=== PATIENT | female | born 1980 | race Caucasian/White ===

== ENCOUNTER → 2018-01-11 | Outpatient (REF) | payer OTHER | LOC: M SFHCLERA 08:42 | DX: F11.90 Opioid use, unspecified, uncomplicated (principal) | CPT/HCPCS: 80307 ==

== ENCOUNTER → 2018-07-07 | Outpatient (CLI) | payer OTHER | LOC: M PAIN 13:15 | DX: M79.1 Myalgia (principal); M47.816 Spondylosis without myelopathy or radiculopathy, lumbar region; F41.9 Anxiety disorder, unspecified; J30.2 Other seasonal allergic rhinitis; K21.9 Gastro-esophageal reflux disease without esophagitis; E55.9 Vitamin D deficiency, unspecified; E66.01 Morbid (severe) obesity due to excess calories; Z79.891 Long term (current) use of opiate analgesic; Z79.899 Other long term (current) drug therapy; Z68.41 Body mass index [BMI] 40.0-44.9, adult | CPT/HCPCS: G0463 ==

== ENCOUNTER → 2018-08-02 | Outpatient (CLI) | payer OTHER | LOC: M PAIN 11:30 | DX: M54.5 Low back pain (principal); M79.1 Myalgia; G89.29 Other chronic pain; M47.816 Spondylosis without myelopathy or radiculopathy, lumbar region; F41.9 Anxiety disorder, unspecified; K21.9 Gastro-esophageal reflux disease without esophagitis; E55.9 Vitamin D deficiency, unspecified; J30.2 Other seasonal allergic rhinitis; E66.01 Morbid (severe) obesity due to excess calories; Z68.41 Body mass index [BMI] 40.0-44.9, adult; Z79.891 Long term (current) use of opiate analgesic; Z79.899 Other long term (current) drug therapy | CPT/HCPCS: G0463 ==

== ENCOUNTER → 2018-09-01 | Outpatient (REF) | payer OTHER ==
[2018-09-01 19:21] LABS: HEMATOCRIT 40.4 % (36.0-47.0); HEMOGLOBIN 12.8 g/dl (12.0-15.5); MEAN CORPUSCULAR HEMOGLOBIN 30.1 pg (27.0-33.0); MEAN CORPUSCULAR HGB CONC 31.7 g/dl (32.0-36.5); MEAN CORPUSCULAR VOLUME 95.1 fl (80.0-96.0); PLATELET COUNT, AUTOMATED 211 10^3/uL (150-450); RED BLOOD COUNT 4.25 10^6/uL (4.00-5.40); RED CELL DISTRIBUTION WIDTH 13.2 % (11.5-14.5); WHITE BLOOD COUNT 8.7 10^3/uL (4.0-10.0)
[2018-09-01 19:42] LABS: ALBUMIN 3.9 GM/DL (3.2-5.2); ALKALINE PHOSPHATASE 85 U/L (45-117); ALT/SGPT 21 U/L (12-78); ANION GAP 4 MEQ/L (8-16); AST/SGOT 11 U/L (7-37); BILIRUBIN,TOTAL 0.4 MG/DL (0.2-1.0); BLOOD UREA NITROGEN 21 MG/DL (7-18); CALCIUM LEVEL 8.6 MG/DL (8.5-10.1); CARBON DIOXIDE LEVEL 30 MEQ/L (21-32); CHLORIDE LEVEL 108 MEQ/L (98-107); CREATININE FOR GFR 1.05 MG/DL (0.55-1.30); FREE T4 0.82 NG/DL (0.76-1.46); GLOMERULAR FILTRATION RATE > 60.0 (>60); GLUCOSE, FASTING 86 MG/DL (70-100); MAGNESIUM LEVEL 2.1 MG/DL (1.8-2.4); POTASSIUM SERUM 3.8 MEQ/L (3.5-5.1); SODIUM LEVEL 142 MEQ/L (136-145); TOTAL PROTEIN 6.9 GM/DL (6.4-8.2)
== END ==
LOC: M SFHCADAM 14:50
DX: R25.2 Cramp and spasm (principal); K21.9 Gastro-esophageal reflux disease without esophagitis; M54.5 Low back pain

== ENCOUNTER → 2018-09-13 | Outpatient (CLI) | payer OTHER | LOC: M PAIN 10:30 | DX: M54.5 Low back pain (principal); M79.18 Myalgia, other site; G89.29 Other chronic pain; M47.816 Spondylosis without myelopathy or radiculopathy, lumbar region; F41.9 Anxiety disorder, unspecified; K21.9 Gastro-esophageal reflux disease without esophagitis; E55.9 Vitamin D deficiency, unspecified; E66.01 Morbid (severe) obesity due to excess calories; Z68.41 Body mass index [BMI] 40.0-44.9, adult; Z79.891 Long term (current) use of opiate analgesic; Z79.899 Other long term (current) drug therapy; J30.2 Other seasonal allergic rhinitis | CPT/HCPCS: G0463 ==

== ENCOUNTER → 2019-02-12 | Outpatient (CLI) | payer OTHER ==
[~2019-02-12] MED LIST: tamiflu
--- NOTE | 2019-02-14 01:56 | ECWPNPC ---
PATIENT NAME: EMILIE GILL : 1980 GENDER: FEMALE VISIT DATE: 02/12/2019 DISCHARGE DATE: 02/12/19 0944 VISIT LOCKED DATE TIME: PHYSICIAN: NATALIA BAKER RESOURCE: NATALIA BAKER REASON FOR APPOINTMENT 1. BACK PAIN HISTORY OF PRESENT ILLNESS HISTORY OF PRESENT ILLNESS: PAIN THE PATIENT DESCRIBES THE PAINDURING THE LAST MONTH SEVERITY - PAIN SCORE OF5/10 38 YEAR OLD FEMALE HERE FOR F/U ON CHRONIC BACK PAIN. TAKES TRAMADOL 50MG PRN. PATIENTN SAYS THE TRAMADOL IS PROVIDING ADEQUATE RELIEF.SHE DENIES RADICULOPATHY. SHE IS NOT TAKING ANY ANTI ANXIETY MEDICATION. LAST URINE TOX 6 MONTHS AGO. FALL RISK SCREENING: SCREENING : NO FALLS IN THE PAST YEAR. CURRENT MEDICATIONS TAKING VITAMIN D 1000 UNIT TABLET 1 TABLET ORALLY ONCE A DAY TAKING MULTIVITAMINS CAPSULE 1 ORALLY DAILY TAKING DICYCLOMINE HCL 20 MG TABLET 1 TABLET ORALLY THREE TIMES DAILY PRN TAKING FLONASE ALLERGY RELIEF 50 MCG/ACT SUSPENSION 1 SPRAY IN EACH NOSTRIL NASALLY BID TAKING LORATADINE 10 MG TABLET 1 TABLET ORALLY ONCE A DAY PRN ALLERGIES TAKING TIZANIDINE HCL 4 MG TABLET 1 TABLET NEEDED ORALLY BEFORE BEDTIME TAKING PANTOPRAZOLE SODIUM 40 MG TABLET DELAYED RELEASE 1 TABLET ORALLY ONCE A DAY TAKING TRAMADOL HCL 50 MG TABLET 1 TABLET ORALLY EVERY 6 HRS PRN FOR PAIN (MDD:4) MEDICATION LIST REVIEWED AND RECONCILED WITH THE PATIENT PAST MEDICAL HISTORY ANXIETY - HAS TRIED MULTIPLE MEDS - HAS LEARNED TO MANAGE THIS WITH CBT SEASONAL ALLERGIES CHRONIC LOW BACK PAIN/MRI SHOWED LUMBAR DISC BULGE/HERNIATION - FOLLOWS WITH PAIN CLINIC ON TRAMADOL ESOPHAGEAL REFLUX H/O VITAMIN D DEFICIENCY OBESITY IBS DIARRHEA TYPE CHRONIC CON'T USE OF OPIOIDS ALLERGIES SEASONAL: ITCHY EYES, NASAL DRAINAGE - ALLERGY SURGICAL HISTORY DRAINED CYST ON RIGHT OVARY AND D&C (DR. HARRINGTON) 2010 BTL (DR. HARRINGTON) 2011 REMOVAL OF RIGHT OVARY AND TUBE 2014 EGD/COLONOSCOPY - DR. HARPER 2015 FAMILY HISTORY FATHER: , COPD; EMPHYSEMA, DIAGNOSED WITH OTHER MOTHER: ALIVE, NO KNOWN MEDICAL PROBLEMS SIBLINGS: ALIVE, 2 BROTHERS; 2 SISTERS (ALL HEALTHY) SON(S): ALIVE MATERNAL GRAND FATHER: , LUNG CANCER MATERNAL AUNT: BREAST CANCER 3 SON(S) , 1 DAUGHTER(S) - HEALTHY. NO H\/O UTERINE, OVARIAN, COLON CANCER. SOCIAL HISTORY GENERAL: TOBACCO USE ARE YOU A:NONSMOKER LATEX QUESTIONNAIRE LATEX ALLERGY : HAVE YOU EVER DEVELOPED ANY TYPE OF REACTION AFTER HANDLING LATEX PRODUCTS SUCH RUBBER GLOVES, CONDOMS, DIAPHRAGMS, BALLOONS, SOCKS, OR UNDERWEAR?NO LATEX ALLERGY : HAVE YOU EVER DEVELOPED ANY TYPE OF REACTION DURING OR AFTER DENTAL APPOINTMENT, VAGINAL/RECTAL EXAMINATION, SURGICAL PROCEDURE, OR ANY OTHER EXPOSURE?NO LATEX RISK : HAVE YOU EVER HAD ANY DIFFICULTY BREATHING OR HIVES AFTER EATING OR HANDLING ANY FRUITS, OR VEGETABLES; SUCH KIWI, BANANAS, STONE FRUITS, OR CHESTNUTSNO LATEX RISK : DO YOU HAVE A PREVIOUS PERSONAL HISTORY OF MORE THAN NINE SURGERIES, SPINA BIFIDA, OR REPEATED CATHERTIZATIONS? NO LATEX RISK : ARE YOU FREQUENTLY EXPOSED TO LATEX PRODUCTS IN YOUR OCCUPATION?NO DATE ASKED : 02/12/2019 LUNG CANCER SCREENING SMOKING STATUS:FORMER SMOKER IS THE PATIENT BETWEEN THE AGE OF 55 AND 77?NO BMI CARE GOAL FOLLOW-UP ABOVE NORMAL BMI FOLLOW-UPDIETARY MANAGEMENT EDUCATION, GUIDANCE, AND COUNSELING ALCOHOL SCREENING DID YOU HAVE A DRINK CONTAINING ALCOHOL IN THE PAST YEAR?NO POINTS0 INTERPRETATIONNEGATIVE RECREATIONAL DRUG USE DRUG USE?NO CAFFEINE CAFFEINE USE?YES A CUP OF COFFEE A DAY SEXUAL HX HAD SEX IN THE LAST 12 MONTHS (VAGINAL, ORAL, OR ANAL)?YES WITHMEN ONLY USE PROTECTION?NO LMP:08/06/18 HAVE YOU EVER HAD AN STD?NO EVANGELICAL EVANGELICAL RELIGION LANGUAGE LANGUAGES SPOKEN:ARABIC EDUCATION LEVEL OF EDUCATION:HIGH SCHOOL LEARNING BARRIERS / SPECIAL NEEDS CHANGE FROM LAST VISIT?NO BARRIERS TO LEARNING?NO HEARING IMPAIRED?NO VISION IMPAIRED?NO COGNITIVELY IMPAIRED?NO READINESS TO LEARN?YES LEARNING PREFERENCES?NO LEARNING CAPABILITIES PRESENT?YES EMOTIONAL BARRIERS?NO SPECIAL DEVICES?NO FIELD SUPERVISOR SEED PRODUCTION NEEDED?NO DOMESTIC VIOLENCE STATUS: DO YOU FEEL SAFE IN YOUR ENVIRONMENT?YES 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 DIET: REGULAR. EXERCISE: WALKS. MARITAL STATUS: . IMMUNIZATION PROGRAM DO YOU FEEL SAFE IN YOUR ENVIRONMENT? 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 PAIN CLINIC PFS, CLERGY, PUBLIC HEALTH REFERRALS PFS REFERRAL NEEDED?NO CLERGY REFERRAL NEEDED?NO PUBLIC HEALTH REFERRAL NEEDED?NO WAS THE PROVIDER NOTIFIED OF ANY PERTINENT INFO? N/A HAS THE PATIENT BEEN EDUCATED REGARDING HIS/HER PLAN OF CARE?YES HAS THE PATIENT BEEN EDUCATED REGARDING PAIN, THE RISK FOR PAIN, THE IMPORTANCE OF EFFECTIVE PAIN MANAGEMENT, AND THE PAIN ASSESSMENT PROCESS?YES ADVANCE DIRECTIVE ADVANCE DIRECTIVE DISCUSSED WITH PATIENT:YES 02/12/19 PT HAS NO ADVANCED DIRECTIVES, DECLINES INFORMATION ON HCP AT THIS TIME. AD EVIEWED 08/02/18 1200REVIEWED WITH PATIENT 09/13/18 1116 JS02/12/19 REVIEWED WITH PT. AD. HOSPITALIZATION/MAJOR DIAGNOSTIC PROCEDURE CHILD X 4 REVIEW OF SYSTEMS REVIEWED BY: PROVIDER: ALAINA Kelly CONSTITUTIONAL: ANY CHANGE IN YOUR MEDICAL CONDITION? NO . CHILLS NO . FEVER NO . INFECTION: DO YOU HAVE NEW INFECTIONS? NO . DO YOU HAVE HISTORY OF MRSA? NO . MUSCULOSKELETAL: ANY NEW PATTERNS OF PAIN OR NUMBNESS? NO . GASTROENTEROLOGY: ANY NEW CHANGE IN BOWEL CONTROL? NO . GENITOURINARY: ANY NEW CHANGE IN BLADDER CONTROL? NO . IS THERE A CHANCE YOU COULD BE ? NO . HEMATOLOGY/LYMPH: DO YOU TAKE ANY BLOOD THINNERS? (FOR EXAMPLE- COUMADIN, PLAVIX, AGGRENOX, PLATEL, PRADAXA, OR XARELTO) NO . WHEN WAS YOUR LAST DOSE? DATE: TIME: . NEUROLOGY: HAVE YOU FALLEN IN THE PAST 12 MONTHS? NO . ANY NEW EXTREMITY NUMBNESS OR WEAKNESS? NO . CARDIOLOGY: DO YOU HAVE A PACEMAKER OR DEFIBRILLATOR? NO . RESPIRATORY: HAVE YOU BEEN SICK IN THE PAST WEEK? YES, STOMACH BUG LAST WEEK, FEELS BETTER NOW . FEVER NO . FLU LIKE SYMPTOMS? NO . COUGH NO . INTEGUMENTARY: DO YOU HAVE ANY RASHES OR OPEN SORES? NO . ALLERGIC/IMMUNO: ARE YOU ALLERGIC TO IV DYE? NO . ANY NEW ALLERGIES? NO . PSYCHIATRIC: DO YOU HAVE THOUGHTS OF HURTING YOURSELF OR SOMEONE ELSE? NO . ARE YOU ABUSED, NEGLECTED, OR IN AN UNSAFE ENVIRONMENT? NO . ENDOCRINOLOGY: ARE YOU DIABETIC? NO . OTHER: DO YOU NEED ANY PRESCRIPTIONS? YES . IF YES, PLEASE LIST: TRAMADOL . ANY NEW PROBLEMS WITH YOUR MEDICATIONS? NO . WHEN DID YOU LAST EAT? ____ . WHEN DID YOU LAST DRINK? ____ . WHAT DID YOU LAST DRINK? ____ . NAME OF PERSON DRIVING YOU HOME? ____ . DO YOU HAVE ANY OTHER QUESTIONS OR CONCERNS NO . VITAL SIGNS WT 280 LBS, HT 66 IN, BMI 45.19 INDEX, BP 135/71 MM HG, HR 78 /MIN, RR 18 /MIN, TEMP 97.2 F, OXYGEN SAT % 99%, SAFE IN ENV? (Y/N) Y, NA INITIALS AW 0911, REVIEWED BY: CALEB. EXAMINATION GENERAL EXAMINATION: GENERAL APPEARANCE:NO ACUTE DISTRESS, WELL NOURISHED AND HYDRATED. LUNGS:CLEAR TO AUSCULTATION BILATERALLY, NO WHEEZES, RHONCHI, RALES. HEART:NO MURMURS, REGULAR RATE AND RHYTHM. BACK: NO BONY TENDERNESS, NORMAL RANGE OF MOTION OF SPINE. MILD TENDERNESS R PARASPINAL MUSCLES FROM. CAN WALK ON HEEL AND TOES SLR NEG BILATERAL REFLEXES 2+ LE. ASSESSMENTS LUMBAR SPONDYLOSIS - M47.816 (PRIMARY) LUMBAR DISC DISEASE - M51.9 MYALGIA - M79.1 TREATMENT LUMBAR SPONDYLOSIS CONTINUE TRAMADOL HCL TABLET, 50 MG, 1 TABLET, ORALLY, EVERY 6 HRS PRN FOR PAIN (MDD:4), 30 DAYS, 30, REFILLS 0 CLINICAL NOTES: ISTOP REGISTRY REVIEWED AND DEMONSTRATES COMPLLIANCE. (REF # [id number] ) BRINGS IN MEDICATIONS WHICH IS APPROPRIATE FOR WHAT WAS DISPENSED. RECENT URINE TOXICOLOGY REVIEWED. NO UNAUTHORIZED MEDICATIONS. NO ILLICIT SUBSTANCES AND PRESCRIBED MEDICATIONS WERE PRESENT. , YOU HAVE LOW BACK PAIN. TAKE MEDICATIONS DIRECTED. FOR ACUTE PAIN, ALTERNATE ICE AND HEAT FOR 15 MIN 3-4 TIMES DAILY, LIE DOWN WITH YOUR FEET ELEVATED FOR 10-15 MIN TO DECREASE STRAIN OF THE BACK MUSCLES AT ONSET OF SYMPTOMS AND THEN TRY TO RESUME REGULAR DAY TO DAY ACTIVITIES SOON POSSIBLE. IF YOU DEVELOP WEAKNESS IN YOUR LEGS, PAIN THAT MAKES IT DIFFICULT TO WALK, OR START TO HAVE PROBLEMS URINATING OR HAVING A BOWEL MOBEMENT, PLEASE COME TO THE CLINIC OR EMERGENCY ROOM IMMEDIATELY, RISKS OF OPIOID MEDICATION WERE REVIEWED WITH THE PATIENT. THIS INCLUDES BUT IS NOT LIMITED TO THE RISK OF DEPENDENCE, DEVELOPMENT ADDICTION, MOOD DISTURBANCE, OSTEOPOROSIS, CONSTIPATION, HORMONAL CHANGES, RESPIRATION DEPRESSION AND . GOALS OF OPIOID THERAPY WERE DISCUSSED WITH THE PATIENT, WITH A TARGET GOAL BEING AN IMPROVEMENT IN FUNCTION, AND NOT NECESSARILY A REDUCTION IN PAIN. PATIENT INFORMED THAT DOSES WILL NOT BE ESCALATED UNLESS THERE IS EVIDENCE OF CLINICAL EFFICACY AT A LOWER DOSE AND THAT EVERY EFFORT WILL BE MADE TO DESCALATE THERAPY SOON POSSIBLE.PATIENT WAS ADVISED TO TAKE THE MEDICATIONS EXACTLY PRESCRIBED, AND TO NOT TAKE OTHER MEDICATIONS UNLESS THEY WERE PROCESSED SPECIFICALLY PRESCRIBED. THE PATIENT IS ADVISED NOT TO DRIVE OR TO CONSUME ALCOHOL WHILE ON THIS MEDICATION. THE PATIENT VOCALIZES AND DEMONSTRATES UNDERSTANDING OF THESE INSTRUCTIONS AND AGREES TO FOLLOW ALL RECOMMENDATIONS. THERE WAS AN OPPORTUNITY FOR QUESTIONS, AND ALL QUESTIONS WERE ANSWERED. URINE TOX TODAY. PROCEDURE CODES FA211 ESTABILISHED PATIENT [facility] CHARGE DISPOSITION & COMMUNICATION FOLLOW UP 3 MONTHS NATALIA ELECTRONICALLY SIGNED BY MEGAN GUZMAN ON 02/13/2019 AT 08:28 AM EDT DISCLAIMER : THIS IS A VISIT SUMMARY EXTRACTED FROM THE [employer] CHART. IT IS NOT A COPY OF THE [employer] PROGRESS NOTE. REJI
== END ==
LOC: M PAIN 08:45
PROVIDERS: ATTEND Nurse Practitioner Family
DX: M47.816 Spondylosis without myelopathy or radiculopathy, lumbar region (principal); M51.9 Unspecified thoracic, thoracolumbar and lumbosacral intervertebral disc disorder; M79.18 Myalgia, other site; Z86.59 Personal history of other mental and behavioral disorders; K21.9 Gastro-esophageal reflux disease without esophagitis; E55.9 Vitamin D deficiency, unspecified; E66.01 Morbid (severe) obesity due to excess calories; Z68.42 Body mass index [BMI] 45.0-49.9, adult; Z87.891 Personal history of nicotine dependence; Z79.899 Other long term (current) drug therapy

== ENCOUNTER → 2019-08-02 | Outpatient (CLI) | payer OTHER ==
--- NOTE | 2019-08-21 02:28 | ECWPNPC ---
PATIENT NAME: EMILIE GILL : 1980 GENDER: FEMALE VISIT DATE: 08/02/2019 DISCHARGE DATE: 08/02/19 1517 VISIT LOCKED DATE TIME: PHYSICIAN: KARLOS MILLER RESOURCE: KARLOS MILLER DISCLAIMER : THIS IS A VISIT SUMMARY EXTRACTED FROM THE [employer] CHART. IT IS NOT A COPY OF THE [employer] PROGRESS NOTE. REJI
== END ==
LOC: M PAIN 14:30
PROVIDERS: ATTEND Nurse Practitioner Family
DX: M47.816 Spondylosis without myelopathy or radiculopathy, lumbar region (principal); G89.29 Other chronic pain; Z86.59 Personal history of other mental and behavioral disorders; K21.9 Gastro-esophageal reflux disease without esophagitis; E55.9 Vitamin D deficiency, unspecified; Z87.891 Personal history of nicotine dependence; E66.01 Morbid (severe) obesity due to excess calories; Z68.42 Body mass index [BMI] 45.0-49.9, adult; Z79.891 Long term (current) use of opiate analgesic; Z79.899 Other long term (current) drug therapy

== ENCOUNTER → 2019-09-28 | Outpatient (CLI) | payer OTHER ==
--- NOTE | 2019-09-28 16:59 | REP ---
Clinical: Right ankle pain. Technique: AP, lateral, bilateral oblique views of the right ankle. Findings: Osseous structures, joint spaces, and surrounding soft tissues appear relatively normal. Mild swelling cannot be excluded. No acute fracture dislocation. Ankle mortise intact. Impression: No acute fracture or dislocation. Electronically Signed by Markie Tirado MD 09/28/2019 04:50 P
--- NOTE | 2019-09-28 16:59 | REP ---
Clinical: Right foot pain Technique: AP, lateral, bilateral oblique views right foot . Findings: The osseous structures and joint spaces are intact and normal. There is no evidence for acute fracture or dislocation. Surrounding soft tissues are unremarkable. No subcutaneous emphysema or radiodense foreign body. Impression: Age-appropriate right foot series . No acute fracture or dislocation. Electronically Signed by Markie Tirado MD 09/28/2019 04:51 P
== END ==
LOC: M ADAMS 16:38
PROVIDERS: ATTEND Physician Assistant
DX: M25.571 Pain in right ankle and joints of right foot (principal)

== ENCOUNTER → 2019-11-01 | Outpatient (CLI) | payer OTHER ==
--- NOTE | 2019-11-03 09:13 | ECWPNPC ---
PATIENT NAME: EMILIE GILL : 1980 GENDER: FEMALE VISIT DATE: 11/01/2019 DISCHARGE DATE: 11/01/19 1526 VISIT LOCKED DATE TIME: PHYSICIAN: SHANIA PRUITT RESOURCE: SHANIA PRUITT REASON FOR APPOINTMENT 1. BACK HISTORY OF PRESENT ILLNESS HISTORY OF PRESENT ILLNESS: PAIN THE PATIENT DESCRIBES THE PAIN... 38-YEAR-OLD FEMALE IN FOR CHRONIC PAIN FOLLOW-UP. SHE RATES HER PAIN CURRENTLY AT A 5 OUT OF 10 AND DESCRIBES IT SHARP, STABBING, AND TENDER. SHE FEELS HER MEDICATIONS ARE WORKING WELL AND DENIES MED SIDE EFFECTS AT THIS TIME. FALL RISK SCREENING: SCREENING :NO FALLS REPORTED IN THE LAST YEAR CURRENT MEDICATIONS TAKING VITAMIN D 1000 UNIT TABLET 1 TABLET ORALLY ONCE A DAY TAKING MULTIVITAMINS CAPSULE 1 ORALLY DAILY TAKING LORATADINE 10 MG TABLET 1 TABLET ORALLY ONCE A DAY PRN ALLERGIES TAKING DICYCLOMINE HCL 20 MG TABLET 1 TABLET ORALLY THREE TIMES DAILY PRN TAKING PANTOPRAZOLE SODIUM 40 MG TABLET DELAYED RELEASE 1 TABLET ORALLY ONCE A DAY TAKING TIZANIDINE HCL 4 MG TABLET 1 TABLET NEEDED ORALLY BEFORE BEDTIME TAKING IBUPROFEN 800 MG TABLET 1 TABLET WITH FOOD OR MILK NEEDED ORALLY THREE TIMES A DAY TAKING TRAMADOL HCL 50 MG TABLET 1 TABLET EVERY 6 HOURS PRN MDD=4 ORALLY Q6H PRN MDD4, NOTES: CHRONIC PAIN TAKING FLONASE ALLERGY RELIEF 50 MCG/ACT SUSPENSION 1 SPRAY IN EACH NOSTRIL NASALLY BID NOT-TAKING IBUPROFEN 800 MG TABLET 1 TABLET WITH FOOD OR MILK NEEDED ORALLY THREE TIMES A DAY NEEDED, NOTES: DUPLICATE NOT-TAKING PHYSICAL THERAPY EVALUATE AND TREAT PHYSICAL THERAPY DIRECTED DX: LEFT SHOULDER TENDONITIS 1-3X/WEEK MEDICATION LIST REVIEWED AND RECONCILED WITH THE PATIENT PAST MEDICAL HISTORY ANXIETY - HAS TRIED MULTIPLE MEDS - HAS LEARNED TO MANAGE THIS WITH CBT SEASONAL ALLERGIES CHRONIC LOW BACK PAIN/MRI SHOWED LUMBAR DISC BULGE/HERNIATION - FOLLOWS WITH PAIN CLINIC ON TRAMADOL ESOPHAGEAL REFLUX H/O VITAMIN D DEFICIENCY OBESITY IBS DIARRHEA TYPE CHRONIC CON'T USE OF OPIOIDS ALLERGIES SEASONAL: ITCHY EYES, NASAL DRAINAGE - ALLERGY SURGICAL HISTORY DRAINED CYST ON RIGHT OVARY AND D&C (DR. HARRINGTON) 2010 BTL (DR. HARRINGTON) 2011 REMOVAL OF RIGHT OVARY AND TUBE 2014 EGD/COLONOSCOPY - DR. HARPER 2015 FAMILY HISTORY FATHER: , COPD; EMPHYSEMA, DIAGNOSED WITH OTHER SPECIFIED CONDITIONS INFLUENCING HEALTH STATUS MOTHER: ALIVE, NO KNOWN MEDICAL PROBLEMS SIBLINGS: ALIVE, 2 BROTHERS; 2 SISTERS (ALL HEALTHY) SON(S): ALIVE MATERNAL GRAND FATHER: , LUNG CANCER MATERNAL AUNT: BREAST CANCER 3 SON(S) , 1 DAUGHTER(S) - HEALTHY. NO H\\\/O UTERINE, OVARIAN, COLON CANCER. SOCIAL HISTORY GENERAL: TOBACCO USE ARE YOU A:CURRENT SMOKER ARE YOU INTERESTED IN QUITTING?NOT READY TO QUIT COUNSELED THE PATIENT ON SMOKING EFFECTS, EDUCATION [id number]/05/2019 HOW MANY CIGARETTES A DAY DO YOU SMOKE?6-10 PATIENT COUNSELED ON THE DANGERS OF TOBACCO USE AND URGED TO QUIT:11/01/2019 IMMUNIZATION PROGRAM DO YOU FEEL SAFE IN YOUR ENVIRONMENT? 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 EDUCATION LEVEL OF EDUCATION:HIGH SCHOOL DIET: REGULAR. LANGUAGE LANGUAGES SPOKEN:WALLISIAN DOMESTIC VIOLENCE STATUS: DO YOU FEEL SAFE IN YOUR ENVIRONMENT?YES BMI CARE GOAL FOLLOW-UP ABOVE NORMAL BMI FOLLOW-UPDIETARY MANAGEMENT EDUCATION, GUIDANCE, AND COUNSELING RECREATIONAL DRUG USE DRUG USE?NO EXERCISE: WALKS. LEARNING BARRIERS / SPECIAL NEEDS CHANGE FROM LAST VISIT?NO BARRIERS TO LEARNING?NO HEARING IMPAIRED?NO VISION IMPAIRED?NO COGNITIVELY IMPAIRED?NO READINESS TO LEARN?YES LEARNING PREFERENCES?NO LEARNING CAPABILITIES PRESENT?YES EMOTIONAL BARRIERS?NO SPECIAL DEVICES?NO DRYERMAN/WOMAN NEEDED?NO LUNG CANCER SCREENING SMOKING STATUS:FORMER SMOKER IS THE PATIENT BETWEEN THE AGE OF 55 AND 77?NO PAIN CLINIC PFS, CLERGY, PUBLIC HEALTH REFERRALS PFS REFERRAL NEEDED?NO CLERGY REFERRAL NEEDED?NO PUBLIC HEALTH REFERRAL NEEDED?NO WAS THE PROVIDER NOTIFIED OF ANY PERTINENT INFO? N/A HAS THE PATIENT BEEN EDUCATED REGARDING HIS/HER PLAN OF CARE?YES HAS THE PATIENT BEEN EDUCATED REGARDING PAIN, THE RISK FOR PAIN, THE IMPORTANCE OF EFFECTIVE PAIN MANAGEMENT, AND THE PAIN ASSESSMENT PROCESS?YES LATEX QUESTIONNAIRE LATEX ALLERGY : HAVE YOU EVER DEVELOPED ANY TYPE OF REACTION AFTER HANDLING LATEX PRODUCTS SUCH RUBBER GLOVES, CONDOMS, DIAPHRAGMS, BALLOONS, SOCKS, OR UNDERWEAR?NO LATEX ALLERGY : HAVE YOU EVER DEVELOPED ANY TYPE OF REACTION DURING OR AFTER DENTAL APPOINTMENT, VAGINAL/RECTAL EXAMINATION, SURGICAL PROCEDURE, OR ANY OTHER EXPOSURE?NO DATE ASKED : 02/12/2019 LATEX RISK : HAVE YOU EVER HAD ANY DIFFICULTY BREATHING OR HIVES AFTER EATING OR HANDLING ANY FRUITS, OR VEGETABLES; SUCH KIWI, BANANAS, STONE FRUITS, OR CHESTNUTSNO LATEX RISK : DO YOU HAVE A PREVIOUS PERSONAL HISTORY OF MORE THAN NINE SURGERIES, SPINA BIFIDA, OR REPEATED CATHERIZATIONS? NO LATEX RISK : ARE YOU FREQUENTLY EXPOSED TO LATEX PRODUCTS IN YOUR OCCUPATION?NO CAFFEINE CAFFEINE USE?YES A CUP OF COFFEE A DAY ADVANCE DIRECTIVE ADVANCE DIRECTIVE DISCUSSED WITH PATIENT:YES PT HAS NO ADVANCED DIRECTIVES, DECLINES INFORMATION ON HCP AT THIS TIME. 11/01/19 AMISH AMISH MORAVIAN MARITAL STATUS: . 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 SEXUAL HX HAD SEX IN THE LAST 12 MONTHS (VAGINAL, ORAL, OR ANAL)?YES WITHMEN ONLY USE PROTECTION?NO LMP:08/06/18 HAVE YOU EVER HAD AN STD?NO EVIEWED 08/02/18 1200REVIEWED WITH PATIENT 09/13/18 1116 JS02/12/19 REVIEWED WITH PT. ADREVIEWED WITH PATIENT 11/01/19 1500 BV. HOSPITALIZATION/MAJOR DIAGNOSTIC PROCEDURE CHILD X 4 REVIEW OF SYSTEMS REVIEWED BY: PROVIDER: NORMAN JOSEPH . CONSTITUTIONAL: ANY CHANGE IN YOUR MEDICAL CONDITION? NO . CHILLS NO . FEVER NO . INFECTION: DO YOU HAVE NEW INFECTIONS? NO . DO YOU HAVE HISTORY OF MRSA? NO . MUSCULOSKELETAL: ANY NEW PATTERNS OF PAIN OR NUMBNESS? NO . GASTROENTEROLOGY: ANY NEW CHANGE IN BOWEL CONTROL? NO . GENITOURINARY: ANY NEW CHANGE IN BLADDER CONTROL? NO . IS THERE A CHANCE YOU COULD BE ? NO . HEMATOLOGY/LYMPH: DO YOU TAKE ANY BLOOD THINNERS? (FOR EXAMPLE- COUMADIN, PLAVIX, AGGRENOX, PLATEL, PRADAXA, OR XARELTO) NO . WHEN WAS YOUR LAST DOSE? DATE: TIME: . NEUROLOGY: HAVE YOU FALLEN IN THE PAST 12 MONTHS? NO . ANY NEW EXTREMITY NUMBNESS OR WEAKNESS? NO . CARDIOLOGY: DO YOU HAVE A PACEMAKER OR DEFIBRILLATOR? NO . RESPIRATORY: HAVE YOU BEEN SICK IN THE PAST WEEK? NO . FEVER NO . FLU LIKE SYMPTOMS? NO . COUGH NO . INTEGUMENTARY: DO YOU HAVE ANY RASHES OR OPEN SORES? NO . ALLERGIC/IMMUNO: ARE YOU ALLERGIC TO IV DYE? NO . ANY NEW ALLERGIES? NO . PSYCHIATRIC: DO YOU HAVE THOUGHTS OF HURTING YOURSELF OR SOMEONE ELSE? NO . ARE YOU ABUSED, NEGLECTED, OR IN AN UNSAFE ENVIRONMENT? NO . ENDOCRINOLOGY: ARE YOU DIABETIC? NO . OTHER: DO YOU NEED ANY PRESCRIPTIONS? YES, TRAMADOL AND TIZANADINE . IF YES, PLEASE LIST: ____ . ANY NEW PROBLEMS WITH YOUR MEDICATIONS? NO . WHEN DID YOU LAST EAT? ____ . WHEN DID YOU LAST DRINK? ____ . WHAT DID YOU LAST DRINK? ____ . NAME OF PERSON DRIVING YOU HOME? ____ . DO YOU HAVE ANY OTHER QUESTIONS OR CONCERNS NO . VITAL SIGNS WT 300.6 LBS, HT 66 IN, BMI 48.51 INDEX, BP 130/71 MM HG, HR 86 /MIN, RR 18 /MIN, TEMP 98.5 F, OXYGEN SAT % 100%, NA INITIALS SC 15:01, REVIEWED BY: MATHEW. EXAMINATION GENERAL EXAMINATION: GENERALNO ACUTE DISTRESS, WELL NOURISHED AND HYDRATED. PSYCHAPPROPRIATE MOOD AND AFFECT . LUNGS:CLEAR TO AUSCULTATION BILATERALLY, NO WHEEZES, RHONCHI, RALES. HEART:NO MURMURS, REGULAR RATE AND RHYTHM. ASSESSMENTS CHRONIC, CONTINUOUS USE OF OPIOIDS - F11.90 (PRIMARY) LUMBAR SPONDYLOSIS - M47.816 TREATMENT CHRONIC, CONTINUOUS USE OF OPIOIDS REFILL TIZANIDINE HCL TABLET, 4 MG, 1 TABLET NEEDED, ORALLY, BEFORE BEDTIME, 30 DAYS, 30 REFILL TRAMADOL HCL TABLET, 50 MG, 1 TABLET EVERY 6 HOURS PRN MDD=4, ORALLY, Q6H PRN MDD4, 30 DAYS, 120, REFILLS 1, NOTES: CHRONIC PAIN CLINICAL NOTES: 38-YEAR-OLD FEMALE IN FOR CHRONIC PAIN FOLLOW-UP. GIVEN PRESENTING SYMPTOMS AND RESULTS OF PHYSICAL EXAMINATION RECOMMENDED CONTINUATION OF CURRENT MEDICATION REGIMEN WITH FOLLOW-UP IN 3 MONTHS. PATIENT HAS EXPRESSED UNDERSTANDING OF AND WAS IN AGREEMENT WITH TREATMENT PLAN. GIVEN TIME TO ASK QUESTIONS AND EXPRESS CONCERNS., ISTOP REGISTRY REVIEWED AND DEMONSTRATES COMPLLIANCE. (REF # [id number] ) BRINGS IN MEDICATIONS WHICH IS APPROPRIATE FOR WHAT WAS DISPENSED. RECENT URINE TOXICOLOGY REVIEWED. NO UNAUTHORIZED MEDICATIONS. NO ILLICIT SUBSTANCES AND PRESCRIBED MEDICATIONS WERE PRESENT. PROCEDURE CODES FA211 ESTABILISHED PATIENT [facility] CHARGE DISPOSITION & COMMUNICATION FOLLOW UP 3 MONTHS (REASON: BACK PAIN) ELECTRONICALLY SIGNED BY MEGAN ARAUZ ON 11/02/2019 AT 12:35 PM EST DISCLAIMER : THIS IS A VISIT SUMMARY EXTRACTED FROM THE [employer] CHART. IT IS NOT A COPY OF THE [employer] PROGRESS NOTE. REJI
== END ==
LOC: M PAIN 14:30
PROVIDERS: ATTEND Family Medicine
DX: M47.816 Spondylosis without myelopathy or radiculopathy, lumbar region (principal); G89.29 Other chronic pain; Z86.59 Personal history of other mental and behavioral disorders; K21.9 Gastro-esophageal reflux disease without esophagitis; E55.9 Vitamin D deficiency, unspecified; F17.210 Nicotine dependence, cigarettes, uncomplicated; E66.01 Morbid (severe) obesity due to excess calories; Z68.42 Body mass index [BMI] 45.0-49.9, adult; Z79.891 Long term (current) use of opiate analgesic; Z79.899 Other long term (current) drug therapy

== ENCOUNTER → 2019-11-02 | Outpatient (REF) | payer OTHER ==
[2019-11-02 16:44] LABS: HEMATOCRIT 45.2 % (36.0-47.0); HEMOGLOBIN 13.9 g/dl (12.0-15.5); MEAN CORPUSCULAR HEMOGLOBIN 29.7 pg (27.0-33.0); MEAN CORPUSCULAR HGB CONC 30.8 g/dl (32.0-36.5); MEAN CORPUSCULAR VOLUME 96.6 fl (80.0-96.0); PLATELET COUNT, AUTOMATED 239 10^3/uL (150-450); RED BLOOD COUNT 4.68 10^6/uL (4.00-5.40); WHITE BLOOD COUNT 13.1 10^3/uL (4.0-10.0)
[2019-11-02 16:56] LABS: BLOOD UREA NITROGEN 17 MG/DL (7-18); CARBON DIOXIDE LEVEL 31 MEQ/L (21-32); CHLORIDE LEVEL 105 MEQ/L (98-107); CREATININE FOR GFR 0.84 MG/DL (0.55-1.30); FREE T4 0.86 NG/DL (0.76-1.46); GLOMERULAR FILTRATION RATE > 60.0 (>60); GLUCOSE, FASTING 82 MG/DL (70-100); POTASSIUM SERUM 3.8 MEQ/L (3.5-5.1); SODIUM LEVEL 140 MEQ/L (136-145)
== END ==
LOC: M SFHCADAM 13:55
PROVIDERS: ATTEND Physician Assistant
DX: E66.01 Morbid (severe) obesity due to excess calories (principal); N92.0 Excessive and frequent menstruation with regular cycle

== ENCOUNTER 2019-11-26 15:16 | Emergency (ER) | payer OTHER ==
[~2019-11-26] VITALS: Ht 167.6 cm; Wt 135.5 kg
[2019-11-26 15:17] VITALS: BP 123/68
[2019-11-26] MEDS ORDERED: TIZA4TAB4 (15:23)
[2019-11-26] MEDS ORDERED: NAPR-885 (15:23)
[2019-11-26] MEDS ORDERED: TRAM50TA2 (15:23)
[2019-11-26] MEDS ORDERED: PANT40TA3 (15:23)
[2019-11-26] MEDS ORDERED: FLUTISP (15:23)
== END 2019-11-26 17:36 | disposition home or self-care (01) ==
LOC: M ED 15:16
DX: M25.571 Pain in right ankle and joints of right foot (principal); M79.671 Pain in right foot; E66.01 Morbid (severe) obesity due to excess calories; F17.210 Nicotine dependence, cigarettes, uncomplicated; Z88.6 Allergy status to analgesic agent; Z79.1 Long term (current) use of non-steroidal anti-inflammatories (NSAID); Z79.891 Long term (current) use of opiate analgesic; Z79.899 Other long term (current) drug therapy

== ENCOUNTER → 2020-01-31 | Outpatient (CLI) | payer OTHER ==
[~2020-01-31] MED LIST changes: +FLUTISP; +NAPR-885; +PANT40TA3; +TIZA4TAB4; +TRAM50TA2
--- NOTE | 2020-02-02 06:51 | ECWPNPC ---
PATIENT NAME: EMILIE GILL : 1980 GENDER: FEMALE VISIT DATE: 01/31/2020 DISCHARGE DATE: 01/31/20 1529 VISIT LOCKED DATE TIME: PHYSICIAN: SHANIA PRUITT RESOURCE: SHANIA PRUITT REASON FOR APPOINTMENT 1. BACK HISTORY OF PRESENT ILLNESS HISTORY OF PRESENT ILLNESS: PAIN THE PATIENT DESCRIBES THE PAIN... 39-YEAR-OLD FEMALE IN FOR CHRONIC PAIN FOLLOW-UP. SHE RATES HER PAIN CURRENTLY AT A 6 OUT OF 10 AND DESCRIBES IT ACHING, SHARP, BURNING, STABBING, SORE, AND TENDER. SHE FEELS HER MEDICATIONS ARE WORKING WELL AND DENIES MED SIDE EFFECTS AT THIS TIME. FALL RISK SCREENING: SCREENING :NO FALLS REPORTED IN THE LAST YEAR CURRENT MEDICATIONS TAKING VITAMIN D 1000 UNIT TABLET 1 TABLET ORALLY ONCE A DAY TAKING MULTIVITAMINS CAPSULE 1 ORALLY DAILY TAKING LORATADINE 10 MG TABLET 1 TABLET ORALLY ONCE A DAY PRN ALLERGIES TAKING DICYCLOMINE HCL 20 MG TABLET 1 TABLET ORALLY THREE TIMES DAILY PRN TAKING PANTOPRAZOLE SODIUM 40 MG TABLET DELAYED RELEASE 1 TABLET ORALLY ONCE A DAY TAKING IBUPROFEN 800 MG TABLET 1 TABLET WITH FOOD OR MILK NEEDED ORALLY THREE TIMES A DAY TAKING FLONASE ALLERGY RELIEF 50 MCG/ACT SUSPENSION 1 SPRAY IN EACH NOSTRIL NASALLY BID TAKING TIZANIDINE HCL 4 MG TABLET 1 TABLET NEEDED ORALLY BEFORE BEDTIME TAKING TRAMADOL HCL 50 MG TABLET 1 TABLET EVERY 6 HOURS PRN MDD=4 ORALLY Q6H PRN MDD4, NOTES: CHRONIC PAIN NOT-TAKING IBUPROFEN 800 MG TABLET 1 TABLET WITH FOOD OR MILK NEEDED ORALLY THREE TIMES A DAY NEEDED, NOTES: DUPLICATE NOT-TAKING PHYSICAL THERAPY EVALUATE AND TREAT PHYSICAL THERAPY DIRECTED DX: LEFT SHOULDER TENDONITIS 1-3X/WEEK MEDICATION LIST REVIEWED AND RECONCILED WITH THE PATIENT PAST MEDICAL HISTORY ANXIETY - HAS TRIED MULTIPLE MEDS - HAS LEARNED TO MANAGE THIS WITH CBT SEASONAL ALLERGIES CHRONIC LOW BACK PAIN/MRI SHOWED LUMBAR DISC BULGE/HERNIATION - FOLLOWS WITH PAIN CLINIC ON TRAMADOL ESOPHAGEAL REFLUX H/O VITAMIN D DEFICIENCY OBESITY IBS DIARRHEA TYPE CHRONIC CON'T USE OF OPIOIDS ALLERGIES SEASONAL: ITCHY EYES, NASAL DRAINAGE - ALLERGY SURGICAL HISTORY DRAINED CYST ON RIGHT OVARY AND D&C (DR. HARRINGTON) 2010 BTL (DR. HARRINGTON) 2011 REMOVAL OF RIGHT OVARY AND TUBE 2014 EGD/COLONOSCOPY - DR. HARPER 2015 FAMILY HISTORY FATHER: , COPD; EMPHYSEMA, DIAGNOSED WITH OTHER SPECIFIED CONDITIONS INFLUENCING HEALTH STATUS MOTHER: ALIVE, NO KNOWN MEDICAL PROBLEMS SIBLINGS: ALIVE, 2 BROTHERS; 2 SISTERS (ALL HEALTHY) SON(S): ALIVE MATERNAL GRAND FATHER: , LUNG CANCER MATERNAL AUNT: BREAST CANCER 3 SON(S) , 1 DAUGHTER(S) - HEALTHY. NO H\\\/O UTERINE, OVARIAN, COLON CANCER. SOCIAL HISTORY GENERAL: TOBACCO USE ARE YOU A:CURRENT SMOKER ARE YOU INTERESTED IN QUITTING?NOT READY TO QUIT COUNSELED THE PATIENT ON SMOKING EFFECTS, EDUCATION [id number]/05/2019 HOW MANY CIGARETTES A DAY DO YOU SMOKE?6-10 PATIENT COUNSELED ON THE DANGERS OF TOBACCO USE AND URGED TO QUIT:01/31/2020 IMMUNIZATION PROGRAM DO YOU FEEL SAFE IN YOUR ENVIRONMENT? 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 EDUCATION LEVEL OF EDUCATION:HIGH SCHOOL DIET: REGULAR. LANGUAGE LANGUAGES SPOKEN:PARAGUAYAN DOMESTIC VIOLENCE STATUS: DO YOU FEEL SAFE IN YOUR ENVIRONMENT?YES BMI CARE GOAL FOLLOW-UP ABOVE NORMAL BMI FOLLOW-UPDIETARY MANAGEMENT EDUCATION, GUIDANCE, AND COUNSELING RECREATIONAL DRUG USE DRUG USE?NO EXERCISE: WALKS. LEARNING BARRIERS / SPECIAL NEEDS CHANGE FROM LAST VISIT?NO BARRIERS TO LEARNING?NO HEARING IMPAIRED?NO VISION IMPAIRED?NO COGNITIVELY IMPAIRED?NO READINESS TO LEARN?YES LEARNING PREFERENCES?NO LEARNING CAPABILITIES PRESENT?YES EMOTIONAL BARRIERS?NO SPECIAL DEVICES?NO CUSTOMER QUALITY SPECIALIST NEEDED?NO LUNG CANCER SCREENING SMOKING STATUS:FORMER SMOKER IS THE PATIENT BETWEEN THE AGE OF 55 AND 77?NO PAIN CLINIC PFS, CLERGY, PUBLIC HEALTH REFERRALS PFS REFERRAL NEEDED?NO CLERGY REFERRAL NEEDED?NO PUBLIC HEALTH REFERRAL NEEDED?NO WAS THE PROVIDER NOTIFIED OF ANY PERTINENT INFO? N/A HAS THE PATIENT BEEN EDUCATED REGARDING HIS/HER PLAN OF CARE?YES HAS THE PATIENT BEEN EDUCATED REGARDING PAIN, THE RISK FOR PAIN, THE IMPORTANCE OF EFFECTIVE PAIN MANAGEMENT, AND THE PAIN ASSESSMENT PROCESS?YES LATEX QUESTIONNAIRE LATEX ALLERGY : HAVE YOU EVER DEVELOPED ANY TYPE OF REACTION AFTER HANDLING LATEX PRODUCTS SUCH RUBBER GLOVES, CONDOMS, DIAPHRAGMS, BALLOONS, SOCKS, OR UNDERWEAR?NO LATEX ALLERGY : HAVE YOU EVER DEVELOPED ANY TYPE OF REACTION DURING OR AFTER DENTAL APPOINTMENT, VAGINAL/RECTAL EXAMINATION, SURGICAL PROCEDURE, OR ANY OTHER EXPOSURE?NO DATE ASKED : 02/12/2019 LATEX RISK : HAVE YOU EVER HAD ANY DIFFICULTY BREATHING OR HIVES AFTER EATING OR HANDLING ANY FRUITS, OR VEGETABLES; SUCH KIWI, BANANAS, STONE FRUITS, OR CHESTNUTSNO LATEX RISK : DO YOU HAVE A PREVIOUS PERSONAL HISTORY OF MORE THAN NINE SURGERIES, SPINA BIFIDA, OR REPEATED CATHERIZATIONS? NO LATEX RISK : ARE YOU FREQUENTLY EXPOSED TO LATEX PRODUCTS IN YOUR OCCUPATION?NO CAFFEINE CAFFEINE USE?YES A CUP OF COFFEE A DAY ADVANCE DIRECTIVE ADVANCE DIRECTIVE DISCUSSED WITH PATIENT:YES PT HAS NO ADVANCED DIRECTIVES, DECLINES INFORMATION ON HCP AT THIS TIME. 11/01/19 CONGREGATION CONGREGATION CONFUCIANISM MARITAL STATUS: . 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 SEXUAL HX HAD SEX IN THE LAST 12 MONTHS (VAGINAL, ORAL, OR ANAL)?YES WITHMEN ONLY USE PROTECTION?NO LMP:08/06/18 HAVE YOU EVER HAD AN STD?NO EVIEWED 08/02/18 1200REVIEWED WITH PATIENT 09/13/18 1116 JS02/12/19 REVIEWED WITH PT. ADREVIEWED WITH PATIENT 11/01/19 1500 BV. HOSPITALIZATION/MAJOR DIAGNOSTIC PROCEDURE CHILD X 4 REVIEW OF SYSTEMS REVIEWED BY: PROVIDER: NORMAN PRUITT CONSULTING SERVICES MANAGER-C . CONSTITUTIONAL: ANY CHANGE IN YOUR MEDICAL CONDITION? YES- HAS HAD SHINGLES RECENTLY, URI LATELY . CHILLS NO . FEVER NO . INFECTION: DO YOU HAVE NEW INFECTIONS? NO . DO YOU HAVE HISTORY OF MRSA? NO . MUSCULOSKELETAL: ANY NEW PATTERNS OF PAIN OR NUMBNESS? NO . GASTROENTEROLOGY: ANY NEW CHANGE IN BOWEL CONTROL? NO . GENITOURINARY: ANY NEW CHANGE IN BLADDER CONTROL? NO . IS THERE A CHANCE YOU COULD BE ? NO . HEMATOLOGY/LYMPH: DO YOU TAKE ANY BLOOD THINNERS? (FOR EXAMPLE- COUMADIN, PLAVIX, AGGRENOX, PLATEL, PRADAXA, OR XARELTO) NO . WHEN WAS YOUR LAST DOSE? DATE: TIME: . NEUROLOGY: HAVE YOU FALLEN IN THE PAST 12 MONTHS? NO . ANY NEW EXTREMITY NUMBNESS OR WEAKNESS? NO . CARDIOLOGY: DO YOU HAVE A PACEMAKER OR DEFIBRILLATOR? NO . RESPIRATORY: HAVE YOU BEEN SICK IN THE PAST WEEK? YES- RECENTLY HAD AN UPPER RESPIRATORY INFECTION . FEVER NO . FLU LIKE SYMPTOMS? NO . COUGH YES . INTEGUMENTARY: DO YOU HAVE ANY RASHES OR OPEN SORES? NO . ALLERGIC/IMMUNO: ARE YOU ALLERGIC TO IV DYE? NO . ANY NEW ALLERGIES? NO . PSYCHIATRIC: DO YOU HAVE THOUGHTS OF HURTING YOURSELF OR SOMEONE ELSE? NO . ARE YOU ABUSED, NEGLECTED, OR IN AN UNSAFE ENVIRONMENT? NO . ENDOCRINOLOGY: ARE YOU DIABETIC? NO . OTHER: DO YOU NEED ANY PRESCRIPTIONS? NO . IF YES, PLEASE LIST: ____ . ANY NEW PROBLEMS WITH YOUR MEDICATIONS? NO . WHEN DID YOU LAST EAT? ____ . WHEN DID YOU LAST DRINK? ____ . WHAT DID YOU LAST DRINK? ____ . NAME OF PERSON DRIVING YOU HOME? ____ . DO YOU HAVE ANY OTHER QUESTIONS OR CONCERNS NO . VITAL SIGNS WT 295.6 LBS, HT 66 IN, BMI 47.71 INDEX, BP 130/78 MM HG, HR 79 /MIN, RR 18 /MIN, TEMP 97.7 F, OXYGEN SAT % 97%, SAFE IN ENV? (Y/N) YES, NA INITIALS AW 1517, REVIEWED BY: JONO. EXAMINATION GENERAL EXAMINATION: GENERALNO ACUTE DISTRESS, WELL NOURISHED AND HYDRATED. PSYCHAPPROPRIATE MOOD AND AFFECT . LUNGS:CLEAR TO AUSCULTATION BILATERALLY, NO WHEEZES, RHONCHI, RALES. HEART:NO MURMURS, REGULAR RATE AND RHYTHM. 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 GIVEN PRESENTING SYMPTOMS AND RESULTS OF PHYSICAL EXAMINATION RECOMMENDED CONTINUATION CURRENT MEDICATION REGIMEN WITH FOLLOW-UP IN 3 MONTHS. PATIENT HAS EXPRESSED UNDERSTANDING OF AND WAS IN AGREEMENT WITH TREATMENT PLAN. GIVEN TIME TO ASK QUESTIONS AND EXPRESS CONCERNS., ISTOP REGISTRY REVIEWED AND DEMONSTRATES COMPLLIANCE. (REF # ) BRINGS IN MEDICATIONS WHICH IS APPROPRIATE FOR WHAT WAS DISPENSED. RECENT URINE TOXICOLOGY REVIEWED. NO UNAUTHORIZED MEDICATIONS. NO ILLICIT SUBSTANCES AND PRESCRIBED MEDICATIONS WERE PRESENT. PROCEDURE CODES [id number] ESTABILISHED PATIENT [facility] FAC[facility] CHARGE DISPOSITION & COMMUNICATION FOLLOW UP 3 MONTHS (REASON: BACK PAIN ) ELECTRONICALLY SIGNED BY MEGAN ARAUZ ON 02/01/2020 AT 09:09 AM EST DISCLAIMER : THIS IS A VISIT SUMMARY EXTRACTED FROM THE [facility] CHART. IT IS NOT A COPY OF THE [facility] PROGRESS NOTE. REJI
== END ==
LOC: M PAIN 14:30
PROVIDERS: ATTEND Family Medicine
DX: M47.816 Spondylosis without myelopathy or radiculopathy, lumbar region (principal); G89.29 Other chronic pain; Z86.59 Personal history of other mental and behavioral disorders; K21.9 Gastro-esophageal reflux disease without esophagitis; E55.9 Vitamin D deficiency, unspecified; F17.210 Nicotine dependence, cigarettes, uncomplicated; E66.01 Morbid (severe) obesity due to excess calories; Z68.42 Body mass index [BMI] 45.0-49.9, adult; Z79.891 Long term (current) use of opiate analgesic; Z79.899 Other long term (current) drug therapy

== ENCOUNTER → 2020-05-02 | Outpatient (CLI) | payer OTHER ==
--- NOTE | 2020-05-07 04:57 | ECWPNPC ---
PATIENT NAME: EMILIE GILL : 1980 GENDER: FEMALE VISIT DATE: 05/02/2020 DISCHARGE DATE: 05/02/20 1507 VISIT LOCKED DATE TIME: PHYSICIAN: SHANIA PRUITT RESOURCE: SHANIA PRUITT REASON FOR APPOINTMENT 1. BACK; [phone] PAT DONE HISTORY OF PRESENT ILLNESS GENERAL: PERMISSION REQUESTED AND RECEIVED FROM PATIENT PERFORMED TELEPHONE VISIT.-39-YEAR-OLD FEMALE IN FOR CHRONIC PAIN FOLLOW-UP. SHE RATES HER PAIN CURRENTLY AT A 4 OUT OF 10 AND DESCRIBES IT STABBING. SHE FEELS THE MEDICATIONS ARE HELPFUL AND DENIES MED SIDE EFFECTS AT THIS TIME. PAIN SCREENING: PATIENT HAS A COMPLAINT OF ACUTE OR CHRONIC PAIN :YES LOCATION OF PAIN:LOW BACK INTENSITY OF PAIN (SCALE OF 1 TO 10):6 WHAT DOES YOUR PAIN FEEL LIKE:STABBING DURATION:CONTINOUS, CONSTANT, ALL DAY PAIN IS INCREASED BY:ACTIVITIES, PROLONGED STANDING PAIN IS DECREASED BY:USE OF PAIN MEDICATIONS PAIN HAS INTERFERED WITH THE FOLLOWING:MOOD, HOUSEWORK, RELATIONSHIP WITH OTHERS, ENJOYMENT OF LIFE PLAN/GOALS/TREATMENT/INTERVENTION/FOLLOW UP:SEE PLAN FALL RISK SCREENING: SCREENING :NO FALLS REPORTED IN THE LAST YEAR DEPRESSION SCREENING: PHQ-2 (2015 EDITION) LITTLE INTEREST OR PLEASURE IN DOING THINGS?NOT AT ALL FEELING DOWN, DEPRESSED, OR HOPELESS?NOT AT ALL TOTAL SCORE0 NURSING NOTE: -. PAIN CENTER INTAKE QUESTIONS: DO YOU HAVE A HISTORY OF MRSA? :NO DO YOU TAKE A BLOOD THINNERS? :NO DO YOU HAVE ANY BLEEDING DISORDERS? :NO ANY NEW NUMBNESS OR WEAKNESS IN YOUR LEGS OR ARMS? :NO ANY PACEMAKER,DEFIBRILLATOR, OR DORSAL COLUMN STIMULATOR? :NO DO YOU HAVE ANY RASHES OR OPEN SORES? :NO ARE YOU ALLERGIC TO IV DYE? :NO ARE YOU DIABETIC? :NO ANY NEW PROBLEMS WITH YOUR MEDICATIONS? :NO HAVE YOU RECEIVED A VACCINE IN THE PAST 30 DAYS? :NO DO YOU PLAN TO RECEIVE A VACCINE IN THE NEXT 21 DAYS? :NO DO YOU NEED ANY PRESCRIPTION? :NO DO YOU TAKE ANY IMMUNOSUPPRESSIVE MEDICATIONS? :NO CURRENT MEDICATIONS TAKING VITAMIN D 1000 UNIT TABLET 1 TABLET ORALLY ONCE A DAY TAKING MULTIVITAMINS CAPSULE 1 ORALLY DAILY TAKING LORATADINE 10 MG TABLET 1 TABLET ORALLY ONCE A DAY PRN ALLERGIES TAKING DICYCLOMINE HCL 20 MG TABLET 1 TABLET ORALLY THREE TIMES DAILY PRN TAKING PANTOPRAZOLE SODIUM 40 MG TABLET DELAYED RELEASE 1 TABLET ORALLY ONCE A DAY TAKING FLONASE ALLERGY RELIEF 50 MCG/ACT SUSPENSION 1 SPRAY IN EACH NOSTRIL NASALLY BID TAKING TIZANIDINE HCL 4 MG TABLET 1 TABLET NEEDED ORALLY BEFORE BEDTIME TAKING TRAMADOL HCL 50 MG TABLET 1 TABLET EVERY 6 HOURS PRN MDD=4 ORALLY Q6H PRN MDD4, NOTES: CHRONIC PAIN NOT-TAKING IBUPROFEN 800 MG TABLET 1 TABLET WITH FOOD OR MILK NEEDED ORALLY THREE TIMES A DAY NOT-TAKING IBUPROFEN 800 MG TABLET 1 TABLET WITH FOOD OR MILK NEEDED ORALLY THREE TIMES A DAY NEEDED, NOTES: DUPLICATE NOT-TAKING PHYSICAL THERAPY EVALUATE AND TREAT PHYSICAL THERAPY DIRECTED DX: LEFT SHOULDER TENDONITIS 1-3X/WEEK MEDICATION LIST REVIEWED AND RECONCILED WITH THE PATIENT PAST MEDICAL HISTORY ANXIETY - HAS TRIED MULTIPLE MEDS - HAS LEARNED TO MANAGE THIS WITH CBT SEASONAL ALLERGIES CHRONIC LOW BACK PAIN/MRI SHOWED LUMBAR DISC BULGE/HERNIATION - FOLLOWS WITH PAIN CLINIC ON TRAMADOL ESOPHAGEAL REFLUX H/O VITAMIN D DEFICIENCY OBESITY IBS DIARRHEA TYPE CHRONIC CON'T USE OF OPIOIDS ALLERGIES SEASONAL: ITCHY EYES, NASAL DRAINAGE - ALLERGY SURGICAL HISTORY DRAINED CYST ON RIGHT OVARY AND D&C (DR. HARRINGTON) 2010 BTL (DR. HARRINGTON) 2011 REMOVAL OF RIGHT OVARY AND TUBE 2015 EGD/COLONOSCOPY - DR. HARPER 2016 FAMILY HISTORY FATHER: , COPD; EMPHYSEMA, DIAGNOSED WITH OTHER SPECIFIED CONDITIONS INFLUENCING HEALTH STATUS MOTHER: ALIVE, NO KNOWN MEDICAL PROBLEMS SIBLINGS: ALIVE, 2 BROTHERS; 2 SISTERS (ALL HEALTHY) SON(S): ALIVE MATERNAL GRAND FATHER: , LUNG CANCER MATERNAL AUNT: BREAST CANCER 3 SON(S) , 1 DAUGHTER(S) - HEALTHY. NO H\\\/O UTERINE, OVARIAN, COLON CANCER. SOCIAL HISTORY GENERAL: TOBACCO USE ARE YOU A:CURRENT SMOKER ARE YOU INTERESTED IN QUITTING?NOT READY TO QUIT COUNSELED THE PATIENT ON SMOKING EFFECTS, EDUCATION [id number]/04/2020 HOW MANY CIGARETTES A DAY DO YOU SMOKE?6-10 PATIENT COUNSELED ON THE DANGERS OF TOBACCO USE AND URGED TO QUIT:05/01/2020 SMOKING CESSATION INFORMATION GIVEN05/01/2020 LATEX QUESTIONNAIRE LATEX ALLERGY : HAVE YOU EVER DEVELOPED ANY TYPE OF REACTION AFTER HANDLING LATEX PRODUCTS SUCH RUBBER GLOVES, CONDOMS, DIAPHRAGMS, BALLOONS, SOCKS, OR UNDERWEAR?NO LATEX ALLERGY : HAVE YOU EVER DEVELOPED ANY TYPE OF REACTION DURING OR AFTER DENTAL APPOINTMENT, VAGINAL/RECTAL EXAMINATION, SURGICAL PROCEDURE, OR ANY OTHER EXPOSURE?NO DATE ASKED : 02/12/2019 LATEX RISK : HAVE YOU EVER HAD ANY DIFFICULTY BREATHING OR HIVES AFTER EATING OR HANDLING ANY FRUITS, OR VEGETABLES; SUCH KIWI, BANANAS, STONE FRUITS, OR CHESTNUTSNO LATEX RISK : DO YOU HAVE A PREVIOUS PERSONAL HISTORY OF MORE THAN NINE SURGERIES, SPINA BIFIDA, OR REPEATED CATHERIZATIONS? NO LATEX RISK : ARE YOU FREQUENTLY EXPOSED TO LATEX PRODUCTS IN YOUR OCCUPATION?NO LUNG CANCER SCREENING SMOKING STATUS:FORMER SMOKER IS THE PATIENT BETWEEN THE AGE OF 55 AND 77?NO BMI CARE GOAL FOLLOW-UP ABOVE NORMAL BMI FOLLOW-UPDIETARY MANAGEMENT EDUCATION, GUIDANCE, AND COUNSELING ALCOHOL SCREENING DID YOU HAVE A DRINK CONTAINING ALCOHOL IN THE PAST YEAR?NO POINTS0 INTERPRETATIONNEGATIVE RECREATIONAL DRUG USE DRUG USE?NO CAFFEINE CAFFEINE USE?YES A CUP OF COFFEE A DAY SEXUAL HX HAD SEX IN THE LAST 12 MONTHS (VAGINAL, ORAL, OR ANAL)?YES WITHMEN ONLY USE PROTECTION?NO LMP:08/06/18 HAVE YOU EVER HAD AN STD?NO QUAKER QUAKER [facility] LANGUAGE LANGUAGES SPOKEN:SOUTH [place] EDUCATION LEVEL OF EDUCATION:HIGH SCHOOL LEARNING BARRIERS / SPECIAL NEEDS CHANGE FROM LAST VISIT?NO BARRIERS TO LEARNING?NO HEARING IMPAIRED?NO VISION IMPAIRED?NO COGNITIVELY IMPAIRED?NO READINESS TO LEARN?YES LEARNING PREFERENCES?NO LEARNING CAPABILITIES PRESENT?YES EMOTIONAL BARRIERS?NO SPECIAL DEVICES?NO TOBACCO WETTER NEEDED?NO DOMESTIC VIOLENCE STATUS: DO YOU FEEL SAFE IN YOUR ENVIRONMENT?YES 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 DIET: REGULAR. EXERCISE: WALKS. MARITAL STATUS: . IMMUNIZATION PROGRAM DO YOU FEEL SAFE IN YOUR ENVIRONMENT? 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 PAIN CLINIC PFS, CLERGY, PUBLIC HEALTH REFERRALS PFS REFERRAL NEEDED?NO CLERGY REFERRAL NEEDED?NO PUBLIC HEALTH REFERRAL NEEDED?NO WAS THE PROVIDER NOTIFIED OF ANY PERTINENT INFO? N/A HAS THE PATIENT BEEN EDUCATED REGARDING HIS/HER PLAN OF CARE?YES HAS THE PATIENT BEEN EDUCATED REGARDING PAIN, THE RISK FOR PAIN, THE IMPORTANCE OF EFFECTIVE PAIN MANAGEMENT, AND THE PAIN ASSESSMENT PROCESS?YES ADVANCE DIRECTIVE ADVANCE DIRECTIVE DISCUSSED WITH PATIENT:YES PT HAS NO ADVANCED DIRECTIVES, DECLINES INFORMATION ON HCP AT THIS TIME. 11/01/19 HOSPITALIZATION/MAJOR DIAGNOSTIC PROCEDURE CHILD X 4 REVIEW OF SYSTEMS CONSTITUTIONAL: ANY RECENT FEVER OR ILLNESS NO . CHILLS NO . GASTROENTEROLOGY: BOWEL INCONTINENCE NO . ANY NEW CHANGE IN BOWEL CONTROL? NO . ABDOMINAL PAIN NO . CONSTIPATION NO . GENITOURINARY: ANY NEW CHANGE IN BLADDER CONTROL? NO . IS THERE A CHANCE YOU COULD BE ? NO . URINARY INCONTINENCE NO . CARDIOLOGY: CHEST PRESSURE NO . CHEST PAIN NO . RESPIRATORY: COUGH NO . SHORTNESS OF BREATH NO . EXAMINATION GENERAL EXAMINATION: PSYCHAPPROPRIATE MOOD AND AFFECT , ORIENTED X 3. 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 GIVEN PRESENTING SYMPTOMS RECOMMENDED CONTINUATION OF CURRENT MEDICATION REGIMEN WITH FOLLOW-UP IN 3 MONTHS. PATIENT HAS EXPRESSED UNDERSTANDING OF AND WAS IN AGREEMENT WITH TREATMENT PLAN. GIVEN TIME TO ASK QUESTIONS AND EXPRESS CONCERNS. , ISTOP REGISTRY REVIEWED AND DEMONSTRATES COMPLLIANCE. (REF # [id number] ) BRINGS IN MEDICATIONS WHICH IS APPROPRIATE FOR WHAT WAS DISPENSED. RECENT URINE TOXICOLOGY REVIEWED. NO UNAUTHORIZED MEDICATIONS. NO ILLICIT SUBSTANCES AND PRESCRIBED MEDICATIONS WERE PRESENT. VISIT TO BE BILLED BASED ON TIME SPENT WITH PATIENT. TIME SPENT WITH PATIENT 11 MINUTES. OTHERS NOTES: VITALS NOT OBTAINED DUE TO VIRTUAL VISIT, PRE SCREENING COMPLETED, 05/01/20, NA. DISPOSITION & COMMUNICATION FOLLOW UP 3 MONTHS (REASON: BACK PAIN ) ELECTRONICALLY SIGNED BY MEGAN ARAUZ ON 05/06/2020 AT 07:58 AM EDT DISCLAIMER : THIS IS A VISIT SUMMARY EXTRACTED FROM THE [employer] CHART. IT IS NOT A COPY OF THE [employer] PROGRESS NOTE. REJI
== END ==
LOC: M PAIN 14:30
PROVIDERS: ATTEND Family Medicine
DX: M47.816 Spondylosis without myelopathy or radiculopathy, lumbar region (principal)

== ENCOUNTER → 2020-07-30 | Outpatient (CLI) | payer OTHER ==
[~2020-07-30] MED LIST changes: +PANT40TA29; -PANT40TA3
== END ==
LOC: M PAIN 14:50
PROVIDERS: ATTEND Family Medicine
DX: M47.816 Spondylosis without myelopathy or radiculopathy, lumbar region (principal)

== ENCOUNTER → 2020-10-07 | Outpatient (CLI) | payer OTHER ==
--- NOTE | 2020-10-09 01:36 | ECWPNPC ---
PATIENT NAME: EMILIE GILL : 1980 GENDER: FEMALE VISIT DATE: 10/07/2020 DISCHARGE DATE: 10/07/20 1522 VISIT LOCKED DATE TIME: PHYSICIAN: SHANIA PRUITT PHYSICIAN PAGER NO: ACTIVE RESOURCE: SHANIA PRUITT REASON FOR APPOINTMENT 1. BACK HISTORY OF PRESENT ILLNESS GENERAL: - 39-YEAR-OLD FEMALE IN FOR CHRONIC PAIN FOLLOW-UP. AT LAST CLINIC VISIT PATIENT WAS STARTED ON TIZANIDINE AND SHE ADMITS TODAY THAT SHE HAS FOUND THIS HELPFUL. SHE RATES HER PAIN CURRENTLY AT A 6 OUT OF 10 AND DESCRIBES IT ACHING, AND STABBING. PATIENT ADMITS WITH THE TIZANIDINES HELP SHE IS ABLE TO GET 4 HOURS OF SLEEP. FALL RISK SCREENING: SCREENING :NO FALLS REPORTED IN THE LAST YEAR PAIN SCREENING: PATIENT HAS A COMPLAINT OF ACUTE OR CHRONIC PAIN :YES LOCATION OF PAIN:LOW BACK INTENSITY OF PAIN (SCALE OF 1 TO 10):6 WHAT DOES YOUR PAIN FEEL LIKE:ACHING, STABBING DURATION:CONTINOUS, CONSTANT PAIN IS INCREASED BY:ACTIVITIES PAIN IS DECREASED BY:USE OF PAIN MEDICATIONS TREATMENT/MEDICATIONS USED TO MANAGE PAIN:OTC PAIN RELIEVERS TRAMADOL LEVEL OF RELIEF FROM PAIN TREATMENTS IN THE PAST:25% PAIN HAS INTERFERED WITH THE FOLLOWING:BATHING/DRESSING, WALKING ABILITY, HOUSEWORK, SLEEP, TRANSPORTATION, TOILETING NURSING NOTE: -. PAIN CENTER INTAKE QUESTIONS: DO YOU HAVE A HISTORY OF MRSA? :YES LEFT BREAST 2010 DO YOU TAKE A BLOOD THINNERS? :NO DO YOU HAVE ANY BLEEDING DISORDERS? :NO ANY NEW NUMBNESS OR WEAKNESS IN YOUR LEGS OR ARMS? :NO ANY PACEMAKER,DEFIBRILLATOR, OR DORSAL COLUMN STIMULATOR? :NO DO YOU HAVE ANY RASHES OR OPEN SORES? :NO ARE YOU ALLERGIC TO IV DYE? :NO ARE YOU DIABETIC? :NO ANY NEW PROBLEMS WITH YOUR MEDICATIONS? :NO HAVE YOU RECEIVED A VACCINE IN THE PAST 30 DAYS? :NO DO YOU PLAN TO RECEIVE A VACCINE IN THE NEXT 21 DAYS? :NO DO YOU NEED ANY PRESCRIPTION? :NO DO YOU TAKE ANY IMMUNOSUPPRESSIVE MEDICATIONS? :NO IS THERE A CHANCE YOU COULD BE ? :NO ARE YOU BREAST FEEDING? :NO CURRENT MEDICATIONS TAKING VITAMIN D 1000 UNIT TABLET 1 TABLET ORALLY ONCE A DAY TAKING MULTIVITAMINS CAPSULE 1 ORALLY DAILY TAKING LORATADINE 10 MG TABLET 1 TABLET ORALLY ONCE A DAY PRN ALLERGIES TAKING DICYCLOMINE HCL 20 MG TABLET 1 TABLET ORALLY THREE TIMES DAILY PRN TAKING TIZANIDINE HCL 4 MG TABLET 1 TABLET NEEDED ORALLY BEFORE BEDTIME TAKING PANTOPRAZOLE SODIUM 40 MG TABLET DELAYED RELEASE 1 TABLET ORALLY ONCE A DAY TAKING TRAMADOL HCL 50 MG TABLET 1 TABLET EVERY 6 HOURS PRN MDD=4 ORALLY Q6H PRN MDD4, NOTES: CHRONIC PAIN TAKING FLONASE ALLERGY RELIEF 50 MCG/ACT SUSPENSION USE 1 SPRAY(S) IN EACH NOSTRIL TWICE DAILY FOR 30 DAYS NOT-TAKING IBUPROFEN 800 MG TABLET 1 TABLET WITH FOOD OR MILK NEEDED ORALLY THREE TIMES A DAY NOT-TAKING IBUPROFEN 800 MG TABLET 1 TABLET WITH FOOD OR MILK NEEDED ORALLY THREE TIMES A DAY NEEDED, NOTES: DUPLICATE NOT-TAKING PHYSICAL THERAPY EVALUATE AND TREAT PHYSICAL THERAPY DIRECTED DX: LEFT SHOULDER TENDONITIS 1-3X/WEEK MEDICATION LIST REVIEWED AND RECONCILED WITH THE PATIENT PAST MEDICAL HISTORY ANXIETY - HAS TRIED MULTIPLE MEDS - HAS LEARNED TO MANAGE THIS WITH CBT SEASONAL ALLERGIES CHRONIC LOW BACK PAIN/MRI SHOWED LUMBAR DISC BULGE/HERNIATION - FOLLOWS WITH PAIN CLINIC ON TRAMADOL ESOPHAGEAL REFLUX H/O VITAMIN D DEFICIENCY OBESITY IBS DIARRHEA TYPE CHRONIC CON'T USE OF OPIOIDS ALLERGIES SEASONAL: ITCHY EYES, NASAL DRAINAGE - ALLERGY SURGICAL HISTORY DRAINED CYST ON RIGHT OVARY AND D&C (DR. HARRINGTON) 2010 BTL (DR. HARRINGTON) 2011 REMOVAL OF RIGHT OVARY AND TUBE 2014 EGD/COLONOSCOPY - DR. HARPER 2016 FAMILY HISTORY FATHER: , COPD; EMPHYSEMA, DIAGNOSED WITH OTHER SPECIFIED CONDITIONS INFLUENCING HEALTH STATUS MOTHER: ALIVE, NO KNOWN MEDICAL PROBLEMS SIBLINGS: ALIVE, 2 BROTHERS; 2 SISTERS (ALL HEALTHY) SON(S): ALIVE MATERNAL GRAND FATHER: , LUNG CANCER MATERNAL AUNT: BREAST CANCER 3 SON(S) , 1 DAUGHTER(S) - HEALTHY. NO H\\\/O UTERINE, OVARIAN, COLON CANCER. SOCIAL HISTORY GENERAL: TOBACCO USE ARE YOU A:CURRENT SMOKER ARE YOU INTERESTED IN QUITTING?NOT READY TO QUIT COUNSELED THE PATIENT ON SMOKING EFFECTS, EDUCATION [id number]/10/2020 HOW MANY CIGARETTES A DAY DO YOU SMOKE?6-10 PATIENT COUNSELED ON THE DANGERS OF TOBACCO USE AND URGED TO QUIT:05/01/2020 SMOKING CESSATION INFORMATION GIVEN05/01/2020 LATEX QUESTIONNAIRE LATEX ALLERGY : HAVE YOU EVER DEVELOPED ANY TYPE OF REACTION AFTER HANDLING LATEX PRODUCTS SUCH RUBBER GLOVES, CONDOMS, DIAPHRAGMS, BALLOONS, SOCKS, OR UNDERWEAR?NO LATEX ALLERGY : HAVE YOU EVER DEVELOPED ANY TYPE OF REACTION DURING OR AFTER DENTAL APPOINTMENT, VAGINAL/RECTAL EXAMINATION, SURGICAL PROCEDURE, OR ANY OTHER EXPOSURE?NO LATEX RISK : HAVE YOU EVER HAD ANY DIFFICULTY BREATHING OR HIVES AFTER EATING OR HANDLING ANY FRUITS, OR VEGETABLES; SUCH KIWI, BANANAS, STONE FRUITS, OR CHESTNUTSNO LATEX RISK : DO YOU HAVE A PREVIOUS PERSONAL HISTORY OF MORE THAN NINE SURGERIES, SPINA BIFIDA, OR REPEATED CATHERIZATIONS? NO LATEX RISK : ARE YOU FREQUENTLY EXPOSED TO LATEX PRODUCTS IN YOUR OCCUPATION?NO DATE ASKED : 10/07/2020 LUNG CANCER SCREENING SMOKING STATUS:FORMER SMOKER IS THE PATIENT BETWEEN THE AGE OF 55 AND 77?NO BMI CARE GOAL FOLLOW-UP ABOVE NORMAL BMI FOLLOW-UPDIETARY MANAGEMENT EDUCATION, GUIDANCE, AND COUNSELING ALCOHOL SCREENING DID YOU HAVE A DRINK CONTAINING ALCOHOL IN THE PAST YEAR?NO POINTS0 INTERPRETATIONNEGATIVE RECREATIONAL DRUG USE DRUG USE?NO CAFFEINE CAFFEINE USE?YES A CUP OF COFFEE A DAY SEXUAL HX HAD SEX IN THE LAST 12 MONTHS (VAGINAL, ORAL, OR ANAL)?YES WITHMEN ONLY USE PROTECTION?NO LMP:08/06/18 HAVE YOU EVER HAD AN STD?NO SPIRITISM SPIRITISM ZOROASTRIAN LANGUAGE LANGUAGES SPOKEN:[place] EDUCATION LEVEL OF EDUCATION:HIGH SCHOOL LEARNING BARRIERS / SPECIAL NEEDS CHANGE FROM LAST VISIT?NO BARRIERS TO LEARNING?NO HEARING IMPAIRED?NO VISION IMPAIRED?NO COGNITIVELY IMPAIRED?NO READINESS TO LEARN?YES LEARNING PREFERENCES?NO LEARNING CAPABILITIES PRESENT?YES EMOTIONAL BARRIERS?NO SPECIAL DEVICES?NO TMH TEACHER NEEDED?NO DOMESTIC VIOLENCE STATUS: DO YOU FEEL SAFE IN YOUR ENVIRONMENT?YES 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 DIET: REGULAR. EXERCISE: WALKS. MARITAL STATUS: . IMMUNIZATION PROGRAM DO YOU FEEL SAFE IN YOUR ENVIRONMENT? 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 PAIN CLINIC PFS, CLERGY, PUBLIC HEALTH REFERRALS PFS REFERRAL NEEDED?NO CLERGY REFERRAL NEEDED?NO PUBLIC HEALTH REFERRAL NEEDED?NO WAS THE PROVIDER NOTIFIED OF ANY PERTINENT INFO? N/A HAS THE PATIENT BEEN EDUCATED REGARDING HIS/HER PLAN OF CARE?YES HAS THE PATIENT BEEN EDUCATED REGARDING PAIN, THE RISK FOR PAIN, THE IMPORTANCE OF EFFECTIVE PAIN MANAGEMENT, AND THE PAIN ASSESSMENT PROCESS?YES ADVANCE DIRECTIVE ADVANCE DIRECTIVE DISCUSSED WITH PATIENT:YES PT HAS NO ADVANCED DIRECTIVES, DECLINES INFORMATION ON HCP AT THIS TIME. HOSPITALIZATION/MAJOR DIAGNOSTIC PROCEDURE CHILD X 4 REVIEW OF SYSTEMS CONSTITUTIONAL: ANY RECENT FEVER NO . CHILLS NO . WEIGHT CHANGE OF UNKNOWN REASONS NO . GASTROENTEROLOGY: NEW UNEXPLAINABLE CHANGES IN BOWEL CONTROL NO . CONSTIPATION NO . GENITOURINARY: ANY NEW CHANGE IN BLADDER CONTROL? NO . NEUROLOGY: NEW ONSET DIZZINESS OR NEUROLOGICAL CHANGES NOT MENTIONED NO . NEW NUMBNESS OR PAIN PATTERNS NOT MENTIONED AND PERTINENT TO TODAY'S VISIT NO . CARDIOLOGY: NEW CHEST PRESSURE NO . NEW CHEST PAIN NO . RESPIRATORY: UNEXPLAINABLE COUGH NO . NEW SHORTNESS OF BREATH NO . VITAL SIGNS WT 287.8 LBS, HT 66 IN, BMI 46.45 INDEX, BP 123/69 MM HG, HR 76 /MIN, RR 18 /MIN, TEMP 96.7 F, OXYGEN SAT % 97%, SAFE IN ENV? (Y/N) Y, NA INITIALS SC 14:52, REVIEWED BY: HARDY. EXAMINATION GENERAL EXAMINATION: GENERALNO ACUTE DISTRESS, WELL NOURISHED AND HYDRATED. PSYCHAPPROPRIATE MOOD AND AFFECT . LUNGS:CLEAR TO AUSCULTATION BILATERALLY, NO WHEEZES, RHONCHI, RALES. HEART:NO MURMURS, REGULAR RATE AND RHYTHM. 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 GIVEN PRESENTING SYMPTOMS RECOMMENDED INCREASING TIZANIDINE TO 6 MG WITH FOLLOW-UP IN 3 MONTHS. PATIENT HAS EXPRESSED UNDERSTANDING OF AND WAS IN AGREEMENT WITH TREATMENT PLAN. GIVEN TIME TO ASK QUESTIONS AND EXPRESS CONCERNS. , ISTOP REGISTRY REVIEWED AND DEMONSTRATES COMPLLIANCE. (REF #[id number] ) BRINGS IN MEDICATIONS WHICH IS APPROPRIATE FOR WHAT WAS DISPENSED. RECENT URINE TOXICOLOGY REVIEWED. NO UNAUTHORIZED MEDICATIONS. NO ILLICIT SUBSTANCES AND PRESCRIBED MEDICATIONS WERE PRESENT. DISPOSITION & COMMUNICATION FOLLOW UP 3 MONTHS (REASON: BACK PAIN) ELECTRONICALLY SIGNED BY MEGAN ARAUZ ON 10/08/2020 AT 09:24 AM EST DISCLAIMER : THIS IS A VISIT SUMMARY EXTRACTED FROM THE [employer] CHART. IT IS NOT A COPY OF THE [employer] PROGRESS NOTE. REJI
== END ==
LOC: M PAIN 14:45
PROVIDERS: ATTEND Family Medicine
DX: M47.816 Spondylosis without myelopathy or radiculopathy, lumbar region (principal); G89.29 Other chronic pain; Z86.14 Personal history of Methicillin resistant Staphylococcus aureus infection; K21.9 Gastro-esophageal reflux disease without esophagitis; E55.9 Vitamin D deficiency, unspecified; F17.210 Nicotine dependence, cigarettes, uncomplicated; Z86.59 Personal history of other mental and behavioral disorders; E66.01 Morbid (severe) obesity due to excess calories; Z68.42 Body mass index [BMI] 45.0-49.9, adult; Z79.891 Long term (current) use of opiate analgesic; Z79.899 Other long term (current) drug therapy

== ENCOUNTER → 2020-12-16 | Outpatient (CLI) | payer OTHER ==
[~2020-12-16] MED LIST changes: +FAMO20TA PO; +SUCR1SS PO; +ZOFR4TAB16 PO
--- NOTE | 2021-02-04 03:27 | ECWPNPC ---
PATIENT NAME: EMILIE GILL : 1980 GENDER: FEMALE VISIT DATE: 12/16/2020 DISCHARGE DATE: 12/16/20 1557 VISIT LOCKED DATE TIME: PHYSICIAN: SHANIA PRUITT PHYSICIAN PAGER NO: ACTIVE RESOURCE: SHANIA PRUITT REASON FOR APPOINTMENT 1. BACK HISTORY OF PRESENT ILLNESS GENERAL: 40-YEAR-OLD FEMALE IN FOR CHRONIC PAIN FOLLOW-UP. SHE RATES HER PAIN CURRENTLY AT A 7 OUT OF 10 AND DESCRIBES IT INTERMITTENT, STABBING, AND SHOOTING. FALL RISK SCREENING: SCREENING : ONE FALL WITH INJURY IN THE PAST YEAR PATIENT STATES SHE "FELL ON ICE ABOUT 3 WEEKS AGO AND LANDED ON LEFT HIP. PATIENT STATES SHE "DID NOT SEEK MEDICAL TREATMENT BUT IS STILL HAVING PAIN.. PAIN SCREENING: PATIENT HAS A COMPLAINT OF ACUTE OR CHRONIC PAIN :YES LOCATION OF PAIN:LEFT HIP INTENSITY OF PAIN (SCALE OF 1 TO 10):7 WHAT DOES YOUR PAIN FEEL LIKE:INTERMITTENT, STABBING, SHOOTING DURATION:CONTINOUS, INTERMITTENT, AWAKENS FROM SLEEP PAIN IS INCREASED BY:ACTIVITIES, PROLONGED STANDING WALKING, STANDING PAIN IS DECREASED BY:USE OF PAIN MEDICATIONS, OTHERS HEATING PAD EASES THE PAIN, IBUPROFEN TAKES EDGE OFF TREATMENT/MEDICATIONS USED TO MANAGE PAIN:OTC PAIN RELIEVERS TRAMADOL HELPS BACK BUT DOES NOT TOUCH HIP PAIN LEVEL OF RELIEF FROM PAIN TREATMENTS IN THE PAST:75% NURSING NOTE: - -. PAIN CENTER INTAKE QUESTIONS: DO YOU HAVE A HISTORY OF MRSA? :NO DO YOU TAKE A BLOOD THINNERS? :NO DO YOU HAVE ANY BLEEDING DISORDERS? :NO ANY NEW NUMBNESS OR WEAKNESS IN YOUR LEGS OR ARMS? :NO ANY PACEMAKER,DEFIBRILLATOR, OR DORSAL COLUMN STIMULATOR? :NO DO YOU HAVE ANY RASHES OR OPEN SORES? :NO ARE YOU ALLERGIC TO IV DYE? :NO ARE YOU DIABETIC? :NO ANY NEW PROBLEMS WITH YOUR MEDICATIONS? :NO HAVE YOU RECEIVED A VACCINE IN THE PAST 30 DAYS? :NO DO YOU PLAN TO RECEIVE A VACCINE IN THE NEXT 21 DAYS? :NO DO YOU NEED ANY PRESCRIPTION? :YES NEEDS TIZANIDINE REFILL DO YOU TAKE ANY IMMUNOSUPPRESSIVE MEDICATIONS? :NO IS THERE A CHANCE YOU COULD BE ? :NO ARE YOU BREAST FEEDING? :NO CURRENT MEDICATIONS TAKING VITAMIN D 1000 UNIT TABLET 1 TABLET ORALLY ONCE A DAY TAKING MULTIVITAMINS CAPSULE 1 ORALLY DAILY TAKING LORATADINE 10 MG TABLET 1 TABLET ORALLY ONCE A DAY PRN ALLERGIES TAKING DICYCLOMINE HCL 20 MG TABLET 1 TABLET ORALLY THREE TIMES DAILY PRN TAKING PANTOPRAZOLE SODIUM 40 MG TABLET DELAYED RELEASE 1 TABLET ORALLY ONCE A DAY TAKING FLONASE ALLERGY RELIEF 50 MCG/ACT SUSPENSION USE 1 SPRAY(S) IN EACH NOSTRIL TWICE DAILY FOR 30 DAYS TAKING TIZANIDINE HCL 4 MG TABLET 1.5 TABLET NEEDED 45 BEFORE BEDTIME TAKING TRAMADOL HCL 50 MG TABLET 1 TABLET EVERY 6 HOURS PRN MDD=4 ORALLY Q6H PRN MDD4, NOTES: CHRONIC PAIN NOT-TAKING IBUPROFEN 800 MG TABLET 1 TABLET WITH FOOD OR MILK NEEDED ORALLY THREE TIMES A DAY NOT-TAKING IBUPROFEN 800 MG TABLET 1 TABLET WITH FOOD OR MILK NEEDED ORALLY THREE TIMES A DAY NEEDED, NOTES: DUPLICATE NOT-TAKING PHYSICAL THERAPY EVALUATE AND TREAT PHYSICAL THERAPY DIRECTED DX: LEFT SHOULDER TENDONITIS 1-3X/WEEK MEDICATION LIST REVIEWED AND RECONCILED WITH THE PATIENT PAST MEDICAL HISTORY ANXIETY - HAS TRIED MULTIPLE MEDS - HAS LEARNED TO MANAGE THIS WITH CBT SEASONAL ALLERGIES CHRONIC LOW BACK PAIN/MRI SHOWED LUMBAR DISC BULGE/HERNIATION - FOLLOWS WITH PAIN CLINIC ON TRAMADOL ESOPHAGEAL REFLUX H/O VITAMIN D DEFICIENCY OBESITY IBS DIARRHEA TYPE CHRONIC CON'T USE OF OPIOIDS ALLERGIES SEASONAL: ITCHY EYES, NASAL DRAINAGE - ALLERGY SOCIAL HISTORY GENERAL: TOBACCO USE ARE YOU A:CURRENT SMOKER HOW MANY CIGARETTES A DAY DO YOU SMOKE?6-10 ARE YOU INTERESTED IN QUITTING?NOT READY TO QUIT PATIENT COUNSELED ON THE DANGERS OF TOBACCO USE AND URGED TO QUIT:05/01/2020 COUNSELED THE PATIENT ON SMOKING EFFECTS, EDUCATION [id number]/10/2020 SMOKING CESSATION INFORMATION GIVEN05/01/2020 LATEX QUESTIONNAIRE LATEX ALLERGY : HAVE YOU EVER DEVELOPED ANY TYPE OF REACTION AFTER HANDLING LATEX PRODUCTS SUCH RUBBER GLOVES, CONDOMS, DIAPHRAGMS, BALLOONS, SOCKS, OR UNDERWEAR?NO LATEX ALLERGY : HAVE YOU EVER DEVELOPED ANY TYPE OF REACTION DURING OR AFTER DENTAL APPOINTMENT, VAGINAL/RECTAL EXAMINATION, SURGICAL PROCEDURE, OR ANY OTHER EXPOSURE?NO LATEX RISK : HAVE YOU EVER HAD ANY DIFFICULTY BREATHING OR HIVES AFTER EATING OR HANDLING ANY FRUITS, OR VEGETABLES; SUCH KIWI, BANANAS, STONE FRUITS, OR CHESTNUTSNO LATEX RISK : DO YOU HAVE A PREVIOUS PERSONAL HISTORY OF MORE THAN NINE SURGERIES, SPINA BIFIDA, OR REPEATED CATHERIZATIONS? NO LATEX RISK : ARE YOU FREQUENTLY EXPOSED TO LATEX PRODUCTS IN YOUR OCCUPATION?NO DATE ASKED : 12/16/2020 LUNG CANCER SCREENING SMOKING STATUS:FORMER SMOKER IS THE PATIENT BETWEEN THE AGE OF 55 AND 77?NO BMI CARE GOAL FOLLOW-UP ABOVE NORMAL BMI FOLLOW-UPDIETARY MANAGEMENT EDUCATION, GUIDANCE, AND COUNSELING ALCOHOL SCREENING DID YOU HAVE A DRINK CONTAINING ALCOHOL IN THE PAST YEAR?NO POINTS0 INTERPRETATIONNEGATIVE RECREATIONAL DRUG USE DRUG USE?NO CAFFEINE CAFFEINE USE?YES A CUP OF COFFEE A DAY SEXUAL HX HAD SEX IN THE LAST 12 MONTHS (VAGINAL, ORAL, OR ANAL)?YES WITHMEN ONLY USE PROTECTION?NO LMP:08/06/18 HAVE YOU EVER HAD AN STD?NO CHRISTIAN CHRISTIAN BUDDHIST LANGUAGE LANGUAGES SPOKEN:URDU EDUCATION LEVEL OF EDUCATION:HIGH SCHOOL LEARNING BARRIERS / SPECIAL NEEDS CHANGE FROM LAST VISIT?NO BARRIERS TO LEARNING?NO HEARING IMPAIRED?NO VISION IMPAIRED?NO COGNITIVELY IMPAIRED?NO READINESS TO LEARN?YES LEARNING PREFERENCES?NO LEARNING CAPABILITIES PRESENT?YES EMOTIONAL BARRIERS?NO SPECIAL DEVICES?NO LARGE ANIMAL HUSBANDRY TECHNICIAN NEEDED?NO DOMESTIC VIOLENCE STATUS: DO YOU FEEL SAFE IN YOUR ENVIRONMENT?YES 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 DIET: REGULAR. EXERCISE: WALKS. MARITAL STATUS: . IMMUNIZATION PROGRAM DO YOU FEEL SAFE IN YOUR ENVIRONMENT? 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 - PFS REFERRAL NEEDED?NO CLERGY REFERRAL NEEDED?NO PUBLIC HEALTH REFERRAL NEEDED?NO WAS THE PROVIDER NOTIFIED OF ANY PERTINENT INFO? N/A HAS THE PATIENT BEEN EDUCATED REGARDING HIS/HER PLAN OF CARE?YES HAS THE PATIENT BEEN EDUCATED REGARDING PAIN, THE RISK FOR PAIN, THE IMPORTANCE OF EFFECTIVE PAIN MANAGEMENT, AND THE PAIN ASSESSMENT PROCESS?YES ADVANCE DIRECTIVE ADVANCE DIRECTIVE DISCUSSED WITH PATIENT:YES PT HAS NO ADVANCED DIRECTIVES, DECLINES INFORMATION ON HCP AT THIS TIME. REVIEW OF SYSTEMS CONSTITUTIONAL: ANY RECENT FEVER NO . CHILLS NO . WEIGHT CHANGE OF UNKNOWN REASONS NO . GASTROENTEROLOGY: NEW UNEXPLAINABLE CHANGES IN BOWEL CONTROL NO . CONSTIPATION NO . GENITOURINARY: ANY NEW CHANGE IN BLADDER CONTROL? NO . NEUROLOGY: NEW ONSET DIZZINESS OR NEUROLOGICAL CHANGES NOT MENTIONED NO . NEW NUMBNESS OR PAIN PATTERNS NOT MENTIONED AND PERTINENT TO TODAY'S VISIT NO . CARDIOLOGY: NEW CHEST PRESSURE NO . PATIENT DENIES NO . RESPIRATORY: UNEXPLAINABLE COUGH NO . NEW SHORTNESS OF BREATH NO . VITAL SIGNS WT 288 LBS, HT 66 IN, BMI 46.48 INDEX, BP 101/59 MM HG, HR 70 /MIN, RR 18 /MIN, TEMP 98.1 F, OXYGEN SAT % 100, SAFE IN ENV? (Y/N) YES, REVIEWED BY: OLGA LIDIA RODRIGUEZ MA. EXAMINATION GENERAL EXAMINATION: GENERALNO ACUTE DISTRESS, WELL NOURISHED AND HYDRATED. PSYCHAPPROPRIATE MOOD AND AFFECT . LUNGS:CLEAR TO AUSCULTATION BILATERALLY, NO WHEEZES, RHONCHI, RALES. HEART:NO MURMURS, REGULAR RATE AND RHYTHM. ASSESSMENTS LOW BACK PAIN - M54.5 (PRIMARY) TREATMENT LOW BACK PAIN REFILL TIZANIDINE HCL TABLET, 4 MG, 1.5 TABLET NEEDED, ORALLY, BEFORE BEDTIME, 90 DAY(S), 180, REFILLS 1 NOTES: 40-YEAR-OLD FEMALE IN FOR CHRONIC PAIN FOLLOW-UP. GIVEN PRESENTING SYMPTOMS RECOMMEND CONTINUATION CURRENT MEDICATION REGIMEN WITH FOLLOW-UP IN 3 MONTHS. PATIENT HAS EXPRESSED UNDERSTANDING OF AND WAS IN AGREEMENT WITH TREATMENT PLAN. GIVEN TIME TO ASK QUESTIONS AND EXPRESS CONCERNS. DISPOSITION & COMMUNICATION FOLLOW UP 3 MONTHS (REASON: LOW BACK PAIN ) ELECTRONICALLY SIGNED BY MEGAN ARAUZ ON 02/03/2021 AT 08:41 AM EST DISCLAIMER : THIS IS A VISIT SUMMARY EXTRACTED FROM THE [employer] game [employer] CHART. IT IS NOT A COPY OF THE [employer] game [employer] PROGRESS NOTE. REJI
== END ==
LOC: M PAIN 14:45
PROVIDERS: ATTEND Family Medicine
DX: M54.5 Low back pain (principal); G89.29 Other chronic pain; K21.9 Gastro-esophageal reflux disease without esophagitis; E55.9 Vitamin D deficiency, unspecified; F17.210 Nicotine dependence, cigarettes, uncomplicated; Z86.59 Personal history of other mental and behavioral disorders; E66.01 Morbid (severe) obesity due to excess calories; Z68.42 Body mass index [BMI] 45.0-49.9, adult; Z79.891 Long term (current) use of opiate analgesic; Z79.899 Other long term (current) drug therapy

== ENCOUNTER 2021-01-23 09:41 | Emergency (ER) | payer OTHER ==
[~2021-01-23] VITALS: Ht 167.6 cm; Wt 129.1 kg
[~2021-01-23 09:41] MED LIST changes: -FAMO20TA PO; -SUCR1SS PO; -ZOFR4TAB16 PO
[2021-01-23] MEDS ORDERED: ZOFR4TAB16 PO (09:49)
[2021-01-23] MEDS ORDERED: FAMO20TA PO (09:49)
[2021-01-23] MEDS ORDERED: SUCR1SS PO (09:49)
--- OUTSIDE RECORDS SUMMARY | 2021-01-23 10:14 | CCD | Continuity of Care Document ---
Author Author Jeniffer BRISENO PA Organization Unknown Address [address] [place] [address] [place] [address] Phone [phone] Care Team Providers Care Press Worker Helper Name Role Phone [facility] AUT[facility] [phone] Problems Description No Information Available Social History Type Date Description Comments Sex Unknown Tobacco Use Start: Unknown currently smokes 1/2 Pack Daily ETOH Use Occasionally consumes alcohol Tobacco Use Start: Unknown Patient is a current smoker, smo kes every day Tobacco Use Start: Unknown The Patient Has Never Vaped Smoking Status Reviewed: 01/20/21 The Patient Has Never Vaped Allergies, Adverse Reactions, Alerts Description No Known Drug Allergies Medications Active Medications SIG Qnty Indications Ordering Provide r Date Famotidine 20mg Tablets 1 twice a day 30tabs Mitch Forman JR., M.D. 01/20/2021 Carafate 1gm Tablets 1 with each meal 3xdaily and one before bed, take separately from other meds by at least 1 hour 120tabs Micth Forman JR., M.D. 01/20/2021 Ondansetron 4mg Tablets Dispers 1 tab under tongue three times a day as needed 15tabs Mitch Forman JR., M.D. 01/20/2021 Lidocaine Hydrochloride Viscous 2% Solution patient to mix 50/50 with mylanta or maalox, 10cc oral for s tomache pain 100ml Mitch Forman JR., M.D. 01/20/2021 Tramadol HCL 50mg Tablets take one every 6 hours for pain Unknown Pantoprazole Sodium 40mg Tablets DR qd Unknown D 1000 1000Unit Capsules Unknown Tizanidine HCL 2mg Capsules 1 tab by mouth every 8 hours as needed for muscle spasm and pain Unknown Loratadine 10mg Capsules 1 by mouth every day Unknown Immunizations Description No Information Available Vital Signs Date Vital Result Comment 01/20/2021 11:41am BP Systolic 119 mmHg BP Diastolic 83 mmHg Heart Rate 60 /min Respiratory Rate 16 /min O2 % BldC Oximetry 99 % Body Temperature 98.1 F Weight 280.00 lb Height 66 inches 5'6" BMI (Body Mass Index) 45.2 kg/m2 Pain Level 5 01/16/2020 3:01pm BP Systolic 119 mmHg BP Diastolic 82 mmHg Heart Rate 70 /min Respiratory Rate 12 /min O2 % BldC Oximetry 100 % Body Temperature 99.0 F Weight 292.00 lb Height 66 inches 5'6" BMI (Body Mass Index) 47.1 kg/m2 Pain Level 5 Results Description No Information Available Procedures Description No Information Available Medical Devices Description No Information Available Encounters Type Date Location Provider Dx Diagnosis Office Visit 01/20/2021 11:30a Main Office BERTRAND Goncalves K29.6 0 Other gastritis without bleeding R10.13 Epigastric pain Assessments Date Code Description Provider 01/20/2021 K29.60 Other gastritis without bleeding BERTRAND Goncalves 01/20/2021 R10.13 Epigastric pain BERTRAND Goncalves Plan of Treatment No Information Available Functional Status Description No Information Available Mental Status Description No Information Available Referrals Description No Information Available
--- OUTSIDE RECORDS SUMMARY | 2021-01-23 10:14 | CCD ---
Author Author [facility] Organization [facility] Address Unknown Phone Unavailable Care Team Providers Care Customer Service Leader Name Role Phone Malcolm, Rula MATHEMATICIAN Unavailable Unavailable Malcolm, Rula MATHEMATICIAN Unavailable Unavailable Malcolm, Rula MATHEMATICIAN Unavailable Unavailable Malcolm, Rula MATHEMATICIAN Unavailable Unavailable Malcolm, Rula MATHEMATICIAN Unavailable Unavailable Malcolm, Rula MATHEMATICIAN Unavailable Unavailable Malcolm, Rula MATHEMATICIAN Unavailable Unavailable Malcolm, Rula MATHEMATICIAN Unavailable Unavailable Malcolm, Rula MATHEMATICIAN Unavailable Unavailable Malcolm, Rula MATHEMATICIAN Unavailable Unavailable Malcolm, Rula MATHEMATICIAN Unavailable Unavailable Kay Pires PA Unavailable Unavailable Kay Pires PA Unavailable Unavailable Kay Pires PA Unavailable Unavailable Kay Pires Unavailable Unavailable Kay Pires Unavailable Unavailable Kay Pires Unavailable Unavailable Kay Pires PA Unavailable Unavailable Kay Pires Unavailable Unavailable Kay Pires PA Unavailable Unavailable Kay Pires Unavailable Unavailable Re-disclosure Warning The records that you are about to access may contain information from federally-assisted alcohol or drug abuse programs. If such information is present, then the following federally mandated warning applies: This information has been disclosed to you from records protected by federal confidentiality rules (42 CFR part 2). The federal rules prohibit you from making any further disclosure of this information unless further disclosure is expressly permitted by the written consent of the person to whom it pertains or as otherwise permitted by 42 CFR part 2. A general authorization for the release of medical or other information is NOT sufficient for this purpose. The Federal rules restrict any use of the information to criminally investigate or prosecute any alcohol or drug abuse patient.The records that you are about to access may contain highly sensitive health information, the redisclosure of which is protected by Article 27-F of the [facility] Public Health law. If you continue you may have access to information: Regarding HIV / AIDS; Provided by facilities licensed or operated by the [facility] Office of Mental Health; or Provided by the [facility] Office for People With Developmental Disabilities. If such information is present, then the following [facility] mandated warning applies: This information has been disclosed to you from confidential records which are protected by state law. State law prohibits you from making any further disclosure of this information without the specific written consent of the person to whom it pertains, or as otherwise permitted by law. Any unauthorized further disclosure in violation of state law may result in a fine or nursing home sentence or both. A general authorization for the release of medical or other information is NOT sufficient authorization for further disc losure. Allergies and Adverse Reactions Type Description Substance Reaction Status Data Source(s ) Seasonal Seasonal Seasonal itchy eyes, nasal drainage Active eCW1 ([facility]) Family History Family Member Name Family Member Gender Family Member Status Date o f Status Description Data Source(s) Unknown Unknown Problem MEDENT ([facility]) Unknown Unknown Problem MEDENT ([facility], ) Unknown Unknown Problem MEDENT ([facility] ) Encounters Encounter Providers Location Date Indications Data Source(s ) Outpatient Attender: Camila oquendo 01/20/2021 10:30:00 AM EST MEDENT ([facility]) [place] [address] [address] 12/29/2020 12:00:00 AM EST eCW1 ([facility]) [place] [address] [address] 10/27/2020 12:00:00 AM EST eCW1 ([facility]) [place] [address] [address] 10/08/2020 12:00:00 AM EST eCW1 ([facility]) [place] [address] [address] 10/07/2020 12:00:00 AM EST eCW1 ([facility]) Unknown [address] [facility] [place] [address] 09/25/2020 12:00:00 AM EDT eCW1 ([facility]) [place] [address] [facility] [place] [address] 08/27/2020 12:00:00 AM EDT eCW1 ([facility]) [place] [address] [address] 06/11/2020 12:00:00 AM EDT [facility] TeleMedicine Phone E/M by Phys 11-[address] [place] [phone] 05/02/2020 12:00:00 AM EDT eCW1 ([facility]) [facility] [address] [place] [phone] 04/14/2020 12:00:00 AM EDT eCW1 ([facility]) [facility] [address] [facility] [place] [address] 03/05/2020 12:00:00 AM EDT eCW1 ([facility]) [facility] [address] [place] [phone] 02/12/2020 12:00:00 AM EDT eCW1 ([facility]) [facility] [address] [place] [phone] 01/31/2020 12:00:00 AM EST eCW1 ([facility]) Outpatient Attender: Rula Everettmisti geiger 01/16/2020 02:05:00 PM EST MEDENT ([facility]) [facility] [address] [place] [phone] 01/09/2020 12:00:00 AM EST eCW1 ([facility]) Outpatient Attender: Rula Trinidad Berenice geiger 01/02/2020 02:50:00 PM EST MEDENT ([facility]) Medications Medication Brand Name Start Date Product Form Dose Route Admi nistrative Instructions Pharmacy Instructions Status Indications Reaction Description Data Source(s) Lidocaine Hydrochloride 20 MG/ML Mucous Membrane Topic al Solution Lidocaine Hydrochloride Viscous 01/20/2021 12:00:00 AM EST a ctive MEDENT ([facility]) Famotidine 20 MG Oral Tablet Famotidine 01/20/2021 12:00:00 AM EST active MEDENT ([facility]) Sucralfate 1000 MG Oral Tablet [Carafate] Carafate 01/20/2021 1 2:00:00 AM EST active MEDENT ([facility]) Ondansetron 4 MG Disintegrating Oral Tablet Ondansetron 01/20/2021 12:00:00 AM EST active MEDENT ([facility]) 4 mg 01/20/2021 12:00:00 AM EST tablet,disintegrating 1 5 DISSOLVE ONE TABLET UNDER THE TONGUE THREE TIMES A DAY NEEDED DISSOLVE ONE TABLET UNDER THE TONGUE THREE TIMES A DAY NEEDED SOLD: 01/20/2021 [facility] valacyclovir 1000 MG Oral Tablet Valacyclovir HCL 01/16/2020 12:00: 00 AM EST active MEDENT ([facility]) benzonatate 100 MG Oral Capsule Benzonatate 01/16/2020 12:00:00 AM EST ORAL active MEDENT ([facility]) Amoxicillin 875 MG / Clavulanate 125 MG Oral Tablet Am oxicillin/Clavulanate Potassium 01/02/2020 12:00:00 AM EST ORAL completed MEDENT ([facility]) 875-125 mg 01/02/2020 12:00:00 AM EST tablet 20 TAKE ONE TABLET BY MOUTH TWICE A DAY FOR 10 DAYS TAKE ONE TABLET BY MOUTH TWICE A DAY FOR 10 DAYS SOLD: 01/02/2020 [facility] Insurance Providers Payer name Policy type / Coverage type Policy ID Covered constitution party ID Covered constitution party's relationship to tomas Policy Tomas Plan Information [facility] [id number] SP [id number] [facility] [id number] SP [id number] [facility] Health Maintenance Organization ([facility] [id number] Self [id number] [facility]-Medicaid [id number] ANS-Medicaid [id number] [facility]-Medicaid [id number] [facility]-Medicaid [id number] [facility]-Medicaid [id number] [facility]-Medicaid [id number] [facility]-Medicaid [id number] ANS-Medicaid [id number] ANSI-Medicaid [id number] ANSI-Medicaid [id number] ANSI-Medicaid [id number] ANSI-Medicaid [id number] ANSI-Medicaid [id number] ANSI-Medicaid [id number] ANSI-Medicaid [id number] ANSI-Medicaid [id number] ANSI-Medicaid [id number] ANSI-Medicaid [id number] [place] PPO [id number] SP [id number] MEDICAID [id number] SP [id number] MEDICAID M [id number] S [id number] [employer] B [id number] S VYS [id number] [facility] O [id number] S [id number] [employer] Health Maintenance Organization (HMO) Self [employer] P [id number] S [id number] [employer] [id number] SP [id number] HMO BLUE [id number] SP [id number] Surgeries/Procedures Procedure Description Date Indications Data Source(s) ESTABILISHED PATIENT [facility] 020 12:00:00 AM EST eCW1 ([facility]) Results ID Date Data Source [id number] 01/19/2021 11:20:00 AM EST [facility] Name Value Range Interpretation Code Description Data Isabella rce(s) Supporting Document(s) SARS coronavirus 2 RNA Not Detected [facility] This lab was ordered by [facility] and reported by [facility]. ID Date Data Source [id number] 01/15/2021 12:00:00 AM EST [facility] Name Value Range Interpretation Code Description Data Isabella rce(s) Supporting Document(s) SARS coronavirus 2 Ag NEGATIVE [facility] This lab was ordered by [facility] and reported by [facility]. ID Date Data Source [id number] 01/12/2021 01:00:00 PM EST [facility] Name Value Range Interpretation Code Description Data Isabella rce(s) Supporting Document(s) SARS coronavirus 2 RNA Not Detected [facility] [place] This lab was ordered by [facility] and reported by [facility]. ID Date Data Source [id number] 01/08/2021 12:00:00 AM EST [facility] Name Value Range Interpretation Code Description Data Isabella rce(s) Supporting Document(s) SARS coronavirus 2 Ag NEGATIVE [facility] This lab was ordered by [facility] and reported by [facility]. ID Date Data Source [id number] 01/05/2021 10:30:00 AM EST [facility] Name Value Range Interpretation Code Description Data Isabella rce(s) Supporting Document(s) SARS coronavirus 2 RNA Not Detected [facility] [place] This lab was ordered by [facility] and reported by [facility]. ID Date Data Source [id number] 01/01/2021 12:00:00 AM EST [facility] Name Value Range Interpretation Code Description Data Isabella rce(s) Supporting Document(s) SARS coronavirus 2 Ag [facility] This lab was ordered by [facility] and reported by [facility]. ID Date Data Source [id number] 12/29/2020 01:00:00 PM EST [facility] Name Value Range Interpretation Code Description Data Isabella rce(s) Supporting Document(s) SARS coronavirus 2 RNA Not Detected [facility] [place] This lab was ordered by [facility] and reported by [facility]. ID Date Data Source [id number] 12/25/2020 12:00:00 AM EST [facility] Name Value Range Interpretation Code Description Data Isabella rce(s) Supporting Document(s) SARS coronavirus 2 Ag NEGATIVE [facility] This lab was ordered by [facility] and reported by [facility]. ID Date Data Source [id number] 12/22/2020 02:00:00 PM EST [facility] Name Value Range Interpretation Code Description Data Isabella rce(s) Supporting Document(s) SARS coronavirus 2 RNA Not Detected [facility] [place] This lab was ordered by [facility] and reported by [facility]. ID Date Data Source [id number] 12/18/2020 12:00:00 AM EST [facility] Name Value Range Interpretation Code Description Data Isabella rce(s) Supporting Document(s) SARS coronavirus 2 Ag Negative [facility] This lab was ordered by [facility] and reported by [facility]. ID Date Data Source [id number] 12/15/2020 09:59:00 AM EST [facility] Name Value Range Interpretation Code Description Data Isabella rce(s) Supporting Document(s) SARS coronavirus 2 RNA Not Detected [facility] [place] This lab was ordered by [facility] and reported by [facility]. ID Date Data Source [id number] 12/11/2020 12:00:00 AM EST [facility] Name Value Range Interpretation Code Description Data Isabella rce(s) Supporting Document(s) SARS-CoV2 Rapid Antigen Negative [facility] This lab was ordered by [facility] and reported by [facility]. ID Date Data Source [id number] 12/08/2020 02:30:00 PM EST [facility] Name Value Range Interpretation Code Description Data Isabella rce(s) Supporting Document(s) SARS coronavirus 2 RNA Not Detected [facility] [place] This lab was ordered by [facility] and reported by [facility]. ID Date Data Source [id number] 12/01/2020 02:00:00 PM EST [facility] Name Value Range Interpretation Code Description Data Isabella rce(s) Supporting Document(s) SARS coronavirus 2 RNA Not Detected [facility] [place] This lab was ordered by [facility] and reported by [facility]. ID Date Data Source [id number] 11/24/2020 10:40:00 AM EST [facility] Name Value Range Interpretation Code Description Data Isabella rce(s) Supporting Document(s) SARS coronavirus 2 RNA [facility] This lab was ordered by [facility] and reported by [facility]. ID Date Data Source [id number] 11/17/2020 03:00:00 PM EST [facility] Name Value Range Interpretation Code Description Data Isabella rce(s) Supporting Document(s) SARS coronavirus 2 RNA [facility] This lab was ordered by [facility] and reported by [facility]. ID Date Data Source [id number] 11/10/2020 12:00:00 PM EST [facility] Name Value Range Interpretation Code Description Data Isabella rce(s) Supporting Document(s) SARS coronavirus 2 RNA [facility] This lab was ordered by [facility] and reported by [facility]. ID Date Data Source [id number] 11/03/2020 10:50:00 AM EST [facility] Name Value Range Interpretation Code Description Data Isabella rce(s) Supporting Document(s) SARS coronavirus 2 RNA [facility] This lab was ordered by [facility] and reported by [facility]. ID Date Data Source [id number] 10/27/2020 02:02:00 PM EST [facility] Name Value Range Interpretation Code Description Data Isabella rce(s) Supporting Document(s) SARS coronavirus 2 RNA [facility] This lab was ordered by [facility] and reported by [facility]. ID Date Data Source [id number] 10/20/2020 03:30:00 PM EST [facility] Name Value Range Interpretation Code Description Data Isabella rce(s) Supporting Document(s) SARS coronavirus 2 RNA [facility] This lab was ordered by [facility] and reported by [facility]. ID Date Data Source [id number] 10/13/2020 11:09:00 AM EST [facility] Name Value Range Interpretation Code Description Data Isabella rce(s) Supporting Document(s) SARS coronavirus 2 RNA [facility] This lab was ordered by [facility] and reported by [facility]. ID Date Data Source [id number] 10/06/2020 02:15:00 PM EST [facility] Name Value Range Interpretation Code Description Data Isabella rce(s) Supporting Document(s) SARS coronavirus 2 RNA [facility] This lab was ordered by [facility] and reported by [facility]. ID Date Data Source [id number] 09/29/2020 01:37:00 PM EST [facility] Name Value Range Interpretation Code Description Data Isabella rce(s) Supporting Document(s) SARS coronavirus 2 RNA [facility] This lab was ordered by [facility] and reported by [facility]. ID Date Data Source [id number] 09/22/2020 02:04:00 PM EDT [facility] Name Value Range Interpretation Code Description Data Isabella rce(s) Supporting Document(s) SARS coronavirus 2 RNA [facility] This lab was ordered by [facility] and reported by [facility]. ID Date Data Source [id number] 09/15/2020 10:28:00 AM EDT [facility] Name Value Range Interpretation Code Description Data Isabella rce(s) Supporting Document(s) SARS coronavirus 2 RNA [facility] This lab was ordered by [facility] and reported by [facility]. ID Date Data Source [id number] 09/08/2020 08:00:00 AM EDT [facility] Name Value Range Interpretation Code Description Data Isabella rce(s) Supporting Document(s) SARS coronavirus 2 RNA [facility] This lab was ordered by [facility] and reported by [facility]. ID Date Data Source [id number] 09/01/2020 02:00:00 PM EDT [facility] Name Value Range Interpretation Code Description Data Isabella rce(s) Supporting Document(s) SARS coronavirus 2 RNA [facility] This lab was ordered by [facility] and reported by [facility]. ID Date Data Source [id number] 08/25/2020 12:00:00 PM EDT [facility] Name Value Range Interpretation Code Description Data Isabella rce(s) Supporting Document(s) SARS coronavirus 2 RNA [facility] This lab was ordered by [facility] and reported by [facility]. ID Date Data Source [id number] 08/18/2020 12:00:00 PM EDT [facility] Name Value Range Interpretation Code Description Data Isabella rce(s) Supporting Document(s) SARS coronavirus 2 RNA [facility] This lab was ordered by [facility] and reported by [facility]. ID Date Data Source [id number] 08/11/2020 05:30:00 AM EDT [facility] Name Value Range Interpretation Code Description Data Isabella rce(s) Supporting Document(s) SARS coronavirus 2 RNA [facility] This lab was ordered by [facility] and reported by [facility]. ID Date Data Source [id number] 08/06/2020 02:00:00 PM EDT [facility] Name Value Range Interpretation Code Description Data Isabella rce(s) Supporting Document(s) SARS coronavirus 2 RNA [facility] This lab was ordered by [facility] and reported by [facility]. ID Date Data Source [id number] 07/28/2020 12:19:00 PM EDT [facility] Name Value Range Interpretation Code Description Data Isabella rce(s) Supporting Document(s) SARS coronavirus 2 RNA [facility] This lab was ordered by [facility] and reported by [facility]. ID Date Data Source [id number] 07/21/2020 03:26:00 PM EDT [facility] Name Value Range Interpretation Code Description Data Isabella rce(s) Supporting Document(s) SARS coronavirus 2 RNA [facility] This lab was ordered by [facility] and reported by [facility]. ID Date Data Source [id number] 07/21/2020 08:17:00 AM EDT [facility] Name Value Range Interpretation Code Description Data Isabella rce(s) Supporting Document(s) SARS coronavirus 2 RNA [facility] This lab was ordered by [facility] and reported by [facility]. ID Date Data Source [id number] 06/16/2020 01:27:00 PM EDT [facility] Name Value Range Interpretation Code Description Data Isabella rce(s) Supporting Document(s) SARS coronavirus 2 RNA [facility] This lab was ordered by [facility] and reported by [facility]. ID Date Data Source [id number] 06/02/2020 05:30:00 AM EDT [facility] Name Value Range Interpretation Code Description Data Isabella rce(s) Supporting Document(s) SARS coronavirus 2 RNA [facility] This lab was ordered by [facility] and reported by [facility]. ID Date Data Source [id number] 05/26/2020 11:51:00 AM EDT [facility] Name Value Range Interpretation Code Description Data Isabella rce(s) Supporting Document(s) SARS CORONAVIRUS 2 RNA [facility] This lab was ordered by [facility] and reported by [facility]. ID Date Data Source [id number] 05/19/2020 09:09:00 AM EDT [facility] Name Value Range Interpretation Code Description Data Isabella rce(s) Supporting Document(s) SARS CORONAVIRUS 2 RNA [facility] This lab was ordered by [facility] and reported by [facility]. ID Date Data Source [id number] 05/12/2020 11:21:00 AM EDT [facility] Name Value Range Interpretation Code Description Data Isabella rce(s) Supporting Document(s) SARS CORONAVIRUS 2 RNA [facility] This lab was ordered by [facility] and reported by [facility]. ID Date Data Source [id number] 05/05/2020 05:30:00 AM EDT [facility] Name Value Range Interpretation Code Description Data Isabella rce(s) Supporting Document(s) SARS CORONAVIRUS 2 RNA [facility] This lab was ordered by [facility] and reported by [facility]. ID Date Data Source [id number] 05/01/2020 06:00:00 AM EDT [facility] Name Value Range Interpretation Code Description Data Isabella rce(s) Supporting Document(s) SARS CORONAVIRUS 2 RNA [facility] This lab was ordered by [facility] and reported by [facility]. ID Date Data Source [id number] 04/28/2020 02:20:00 PM EDT [facility] Name Value Range Interpretation Code Description Data Isabella rce(s) Supporting Document(s) SARS CORONAVIRUS 2 RNA [facility] This lab was ordered by [facility] and reported by [facility]. ID Date Data Source [id number] 04/24/2020 08:00:00 AM EDT [facility] Name Value Range Interpretation Code Description Data Isabella rce(s) Supporting Document(s) SARS CORONAVIRUS 2 RNA [facility] This lab was ordered by [facility] and reported by [facility]. ID Date Data Source [id number] 04/22/2020 05:30:00 AM EDT [facility] Name Value Range Interpretation Code Description Data Isabella rce(s) Supporting Document(s) SARS CORONAVIRUS 2 RNA [facility] This lab was ordered by [facility] and reported by [facility]. ID Date Data Source [id number] 04/16/2020 11:14:00 AM EDT [facility] Name Value Range Interpretation Code Description Data Isabella rce(s) Supporting Document(s) SARS CORONAVIRUS 2 RNA [facility] This lab was ordered by [facility] and reported by [facility]. ID Date Data Source [id number] 04/07/2020 06:32:00 AM EDT [facility] Name Value Range Interpretation Code Description Data Isabella rce(s) Supporting Document(s) SARS CORONAVIRUS 2 RNA [facility] This lab was ordered by [facility] and reported by [facility]. Procedure Social History Code Duration Value Status Description Data Source(s ) Smoking 12/16/2020 12:00:00 AM EST Current Smoker completed Curre nt Smoker eCW1 ([facility]) Smoking 10/07/2020 12:00:00 AM EST Current Smoker completed Curre nt Smoker eCW1 ([facility]) Smoking 10/07/2020 12:00:00 AM EST Current Smoker completed Curre nt Smoker eCW1 ([facility]) Smoking 10/07/2020 12:00:00 AM EST Current Smoker completed Curre nt Smoker eCW1 ([facility]) Smoking 05/01/2020 12:00:00 AM EDT Current Smoker completed Curre nt Smoker eCW1 ([facility]) Smoking 05/01/2020 12:00:00 AM EDT Current Smoker completed Curre nt Smoker eCW1 ([facility]) Smoking 05/01/2020 12:00:00 AM EDT Current Smoker completed Curre nt Smoker eCW1 ([facility]) Smoking 05/01/2020 12:00:00 AM EDT Current Smoker completed Curre nt Smoker eCW1 ([facility]) Vital Signs ID Date Data Source UNK Name Value Range Interpretation Code Description Data Source(s) Body mass index (BMI) [Ratio] 45.2 kg/m2 45.2 k g/m2 [facility] Body height 66 [in_i] 66 [in_i] [facility] ([facility]) 5'6" Body weight 280.00 [lb_av] 280.00 [lb_av] MEDEN T ([facility]) Body temperature 98.1 [degF] 98.1 [degF] [facility]) Oxygen saturation in Arterial blood by Pulse oximetry 99 % 99 % [facility] ([facility]) Respiratory rate 16 /min 16 /min [facility] ( [facility]) Heart rate 60 /min 60 /min [facility] ([facility]) Diastolic blood pressure 83 mm[Hg] 83 mm[Hg] [facility] ([facility]) Systolic blood pressure 119 mm[Hg] 119 mm[Hg] M EDENT ([facility]) Diastolic blood pressure 69 mm[Hg] 69 mm[Hg] eCW1 ([facility]) Systolic blood pressure 123 mm[Hg] 123 mm[Hg] e CW1 ([facility]) Body temperature 96.7 [degF] 96.7 [degF] eCW1 ( [facility]) Respiratory rate 18 /min 18 /min eCW1 ([facility]) Heart rate 76 /min 76 /min eCW1 ([facility]) Body mass index (BMI) [Ratio] 46.45 kg/m2 46.45 kg/m2 eCW1 ([facility]) Body height 66 [in_i] 66 [in_i] eCW1 ([facility]) Body weight 287.8 [lb_av] 287.8 [lb_av] eCW1 ([facility]) Diastolic blood pressure 78 mm[Hg] 78 mm[Hg] eCW1 ([facility]) Systolic blood pressure 130 mm[Hg] 130 mm[Hg] e CW1 ([facility]) Body temperature 97.7 [degF] 97.7 [degF] eCW1 ( [facility]) Respiratory rate 18 /min 18 /min eCW1 ([facility]) Heart rate 79 /min 79 /min eCW1 ([facility]) Body mass index (BMI) [Ratio] 47.71 kg/m2 47.71 kg/m2 W1 ([facility]) Body height 66 [in_us] 66 [in_us] eCW1 ([facility]) Body weight Measured 295.6 [lb_av] 295.6 [lb_av ] eCW1 ([facility]) Body mass index (BMI) [Ratio] 47.1 kg/m2 47.1 k g/m2 MEDENT ([facility], [facility]) Body height 66 [in_i] 66 [in_i] MEDENT ([facility]) 5'6" Body weight 292.00 [lb_av] 292.00 [lb_av] MEDEN T ([facility], [facility]) Body temperature 99.0 [degF] 99.0 [degF] MEDENT ([facility]) Oxygen saturation in Arterial blood by Pulse oximetry 100 % 100 % MEDENT ([facility], [facility]) Respiratory rate 12 /min 12 /min MEDENT ( [facility], [facility]) Heart rate 70 /min 70 /min [facility] ([facility], [facility]) Diastolic blood pressure 82 mm[Hg] 82 mm[Hg] MEDENT ([facility], [facility]) Systolic blood pressure 119 mm[Hg] 119 mm[Hg] [facility]) Body mass index (BMI) [Ratio] 47.1 kg/m2 47.1 k g/m2 MEDENT ([facility], [facility]) Body height 66 [in_i] 66 [in_i] [facility] ([facility], [facility]) 5'6" Body weight 292.00 [lb_av] 292.00 [lb_av] MEDEN T ([facility], [facility]) Body temperature 97.8 [degF] 97.8 [degF] MEDENT ([facility], [facility]) Oxygen saturation in Arterial blood by Pulse oximetry 96 % 96 % MEDENT ([facility], [facility]) Respiratory rate 14 /min 14 /min MEDENT ( [facility], [facility]) Heart rate 74 /min 74 /min [facility] ([facility], [facility]) Diastolic blood pressure 82 mm[Hg] 82 mm[Hg] [facility] ([facility], [facility]) Systolic blood pressure 131 mm[Hg] 131 mm[Hg] [facility] ([facility], [facility])
--- OUTSIDE RECORDS SUMMARY | 2021-01-23 10:14 | CCD ---
Author Author [facility] Organization [facility] Address Unknown Phone Unavailable Care Team Providers Care Hand Brush Filler Name Role Phone Efraín Rubalcava Unavailable PROBLEMS Type Condition ICD9-CM Code [id number] Code Onset Dates Condition S tatus SNOMED Code Notes Problem Allergic rhinitis, cause unspecified 477.9 Act faye 18861481 Problem Personal history of methicillin resistant Staphy lococcus aureus V12.04 Active 802764890 Problem Obesity, unspecified 278.00 Active 531685585 Problem Anxiety state, unspecified 300.00 Active 95826 8003 Problem Irritable bowel syndrome with diarrhea K58.0 A ctive 601510418 Problem Chronic low back pain M54.5 Active 742454677 Problem Lumbar disc disease M51.9 Active 368789515 Problem Lumbar spondylosis M47.816 Active 227580693 Problem Myalgia M79.1 Active 64193779 Problem Cigarette nicotine dependence without complication F17.210 Active 29661610 Problem Chronic, continuous use of opioids F11.90 Activ e 468095171 Problem Morbid obesity E66.01 Active 056340760 Problem Gastroesophageal reflux disease, esophagitis pre sence not specified K21.9 Active 677642023 Problem Low back pain M54.5 Active 169439052 Problem Other chronic pain G89.29 Active 14248089 Problem Vitamin D deficiency E55.9 Active 16665457 Problem Menorrhagia with regular cycle N92.0 Active 3 96558170 ALLERGIES Allergen (clinical drug ingredient) Drug/Non Drug Allergy do cumented on EMR Reaction Allergy Type Onset Date Status Seasonal itchy eyes, nasal drainage Non Drug Allergy Active ENCOUNTERS from 1980 to 2020-10-28 Encounter Location Date Provider Diagnosis [facility] [address] [place] [id number] Sep, Efraín Rubalcava Chronic, continuous use of opioids F11.9 0 IMMUNIZATIONS Vaccine Route Administration Date Status TD Adult 0.5mL (Tetanus) Unknown Aug 02, 2007 Adminis tered SOCIAL HISTORY Tobacco Use: Social History Observation Description Date Details (start date - stop date) Current Smoker Sex Assigned At : Social History Observation Description Sex Assigned At Unknown Education: Question Answer Notes Level of Education: High School Audit Question Answer Notes Total Score: 0 Interpretation: Alcohol Education Language: Question Answer Notes Languages spoken: Yakut Tenriism: Question Answer Notes Tenriism sabianist Domestic Violence: Question Answer Notes Status: Sexual Hx: Question Answer Notes Had sex in the last 12 months (vaginal, oral, or anal)? Yes LMP: 08/06/18 Have you ever had an STD? No with Men only Use protection? No Drug and Alcohol Question Answer Notes Total Score: 0 Interpretation: No problems reported Alcohol Screening: Question Answer Notes Did you have a drink containing alcohol in the past year? No Points 0 Interpretation Negative BMI Care Goal Follow-Up Question Answer Notes Above Normal BMI Follow-Up Dietary management educatio n, guidance, and counseling Tobacco Use: Question Answer Notes Are you a: current smoker Smoking Cessation Information Given 05/01/2020 Patient counseled on the dangers of tobacco use and urged to quit: 05/01/2020 How many cigarettes a day do you smoke? 6-10 Are you interested in quitting? Not ready to quit Counseled the patient on smoking effects, education provided 10/07/2020 REASON FOR REFERRAL No Information VITAL SIGNS No information MEDICATIONS Medication SIG (Take, Route, Frequency, Duration) Notes Start Da te End Date Status Flonase Allergy Relief 50 MCG/ACT USE 1 SPRAY(S) IN EA CH NOSTRIL TWICE DAILY FOR 30 DAYS for 30 Active Physical Therapy evaluate and treat as directed Dx: Le ft shoulder tendonitis 1- 3X/week for 1 month Feb, Not-Taking Vitamin D 1000 UNIT 1 tablet Orally Once a day Active Tramadol HCl 50 MG 1 tablet every 6 hours PRN M DD=4 Orally q6h prn mdd4 for 30 days Apr, Active Dicyclomine HCl 20 MG 1 tablet Orally three times daily PRN for 30 da y(s) Active Tizanidine HCl 4 MG 1.5 tablet as needed 45 before bedtime for 3 0 days Aug, Active Loratadine 10 mg 1 tablet Orally Once a day prn allergies Active Ibuprofen 800 MG 1 tablet with food or milk as needed Ora lly Three times a day Feb, Not-Taking Ibuprofen 800 MG 1 tablet with food or milk a s needed Orally Three times a day as needed for 10 days Sep, Not-Taking Pantoprazole Sodium 40 MG 1 tablet Orally Once a day for 30 day( s) Dec, Active Multivitamins 1 Orally daily Active PROCEDURES No Information RESULTS No Results REASON FOR VISIT tramadol MEDICAL (GENERAL) HISTORY Type Description Date Medical History Anxiety - has tried multiple meds - has learned to manage this with CBT Medical History Seasonal Allergies Medical History Chronic low back pain/MRI sh owed Lumbar Disc bulge/herniation - Follows with Pain Clinic on Tramadol Medical History esophageal reflux Medical History h/o vitamin d deficiency Medical History obesity Medical History IBS diarrhea type Medical History Chronic Con't use of opioids Surgical History Drained cyst on right ovary and D&C (Dr. Heredia) 2010 Surgical History BTL (Dr. Heredia) 2011 Surgical History Removal of right ovary and tube 2015 Surgical History EGD/Colonoscopy - Dr. Rodriguez 2016 Hospitalization History child x 4 Goals Section No Information Health Concerns No Information MEDICAL EQUIPMENT No Information MENTAL STATUS No Information FUNCTIONAL STATUS No Information ASSESSMENTS Encounter Date Diagnosis Assessment Notes Treatment Notes Treatm ent Clinical Notes Sep, Chronic, continuous use of opioids (ICD-10 - F11 .90) PLAN OF TREATMENT Medication Medication Name Sig Start Date Stop Date Tramadol HCl 50 MG 1 tablet every 6 hours PRN M DD=4 Orally q6h prn mdd4 for 30 days Apr, Tizanidine HCl 4 MG 1.5 tablet as needed 45 before bedtime f or 30 days Aug, Next Appt Details Provider Name:Efraín Sanders Khadar, 2021-01-07 02:45:00 PM, [address] [place], [address], Insurance Providers Payer Name Payer Address Payer Phone Insured Name Patient Relati onship to Insured Coverage Start Date Coverage End Date [facility] [address] [facility] [id number] EMILIE GILL self
--- OUTSIDE RECORDS SUMMARY | 2021-01-23 10:14 | CCD ---
Author Author [facility] Organization [facility] Address Unknown Phone Unavailable Care Team Providers Care [employer] Certified Internetwork Expert Name Role Phone Emilee Gerardo Unavailable PROBLEMS Type Condition ICD9-CM Code KUG49-OY Code Onset Dates Condition S tatus W/U Status Risk SNOMED Code Notes Problem Allergic rhinitis, cause unspecified 477.9 Act faye confirmed 95311167 Problem Personal history of methicillin resistant Staphy lococcus aureus V12.04 Active confirmed 221347217 Problem Obesity, unspecified 278.00 Active confirmed 754688546 Problem Anxiety state, unspecified 300.00 Active confirmed 138847642 Problem Irritable bowel syndrome with diarrhea K58.0 A ctive confirmed 303663570 Problem Chronic low back pain M54.5 Active confirmed 955889286 Problem Lumbar disc disease M51.9 Active confirmed 873782825 Problem Lumbar spondylosis M47.816 Active confirmed 043041300 Problem Myalgia M79.1 Active confirmed 68039313 Problem Cigarette nicotine dependence without complication F17.210 Active confirmed 47749203 Problem Chronic, continuous use of opioids F11.90 Activ e confirmed 746945837 Problem Morbid obesity E66.01 Active confirmed 82059 6002 Problem Gastroesophageal reflux disease, esophagitis pre sence not specified K21.9 Active confirmed 359630931 Problem Low back pain M54.5 Active confirmed 761011 009 Problem Other chronic pain G89.29 Active confirmed 8 9606640 Problem Vitamin D deficiency E55.9 Active confirmed 02347433 Problem Menorrhagia with regular cycle N92.0 Active confir med 146354095 ALLERGIES Allergen (clinical drug ingredient) Drug/Non Drug Allergy do cumented on EMR Reaction Allergy Type Onset Date Status Seasonal itchy eyes, nasal drainage Non Drug Allergy Active ENCOUNTERS from 1980 to 2020-12-29 Encounter Location Date Provider Diagnosis [facility] [address] [place] [id number] Dec, Emilee Gerardo Chronic, continuous use of opioids F11.9 0 [...] Education Language: Question Answer Notes Languages spoken: Chadian Adventist: Question Answer Notes Adventist yarsanism Domestic Violence: Question Answer Notes Status: Sexual [...] Notes Start Da te End Date Status Loratadine 10 mg 1 tablet Orally Once a day prn allergies Active Vitamin D 1000 UNIT 1 tablet Orally Once a day Active Ibuprofen 800 MG 1 tablet with food or milk as needed Ora lly Three times a day Feb, Not-Taking Ibuprofen 800 MG 1 tablet with food or milk a s needed Orally Three times a day as needed for 10 days Sep, Not-Taking Physical Therapy evaluate and treat as directed Dx: Le ft shoulder tendonitis 1- 3X/week for 1 month Feb, Not-Taking Pantoprazole Sodium 40 MG 1 tablet Orally Once a day for 30 day( s) Dec, Active Multivitamins 1 Orally daily Active Tizanidine HCl 4 MG 1.5 tablet as needed Orally before bedtime f or 90 day(s) Aug, Active Dicyclomine HCl 20 MG 1 tablet Orally three times daily PRN for 30 da y(s) Active Flonase Allergy Relief 50 MCG/ACT USE 1 SPRAY(S) IN EA CH NOSTRIL TWICE DAILY FOR 30 DAYS for 30 Active Tramadol HCl 50 MG 1 tablet every 6 hours PRN M DD=4 Orally q6h prn mdd4 for 30 days Apr, Active PROCEDURES No Information RESULTS No Results [...] 2015 Surgical History EGD/Colonoscopy - Dr. Rodriguez 2015 Hospitalization History child x 4 Goals Section No Information Health Concerns No Information MEDICAL EQUIPMENT No Information MENTAL STATUS No Information FUNCTIONAL STATUS No Information ASSESSMENTS Encounter Date Diagnosis Assessment Notes Treatment Notes Treatm ent Clinical Notes Dec, Chronic, continuous use of opioids (ICD-10 - F11 .90) PLAN OF TREATMENT Medication Medication Name Sig Start Date Stop Date Tramadol HCl 50 MG 1 tablet every 6 hours PRN M DD=4 Orally q6h prn mdd4 for 30 days Apr, Tizanidine HCl 4 MG 1.5 tablet as needed Orally before bedti me for 90 day(s) Aug, Next Appt Details Provider Name:Efraín Rubalcava, 2021-02-13 02:30:00 PM, [address] [place], [address], Insurance Providers Payer Name Payer Address Payer Phone Insured Name Patient Relati onship to Insured Coverage Start Date Coverage End Date [facility] [address] [facility] [phone] EMILIE GILL self
--- OUTSIDE RECORDS SUMMARY | 2021-01-23 10:14 | CCD | Continuity of Care Document ---
Author Author Jeniffer BRISENO PA Organization Unknown Address [address] [place] [address] [place] [address] Phone [phone] Care Team Providers Care Ditch Inspector Name Role Phone [facility] [phone] Problems Description No Information Available Social History [...] SIG Qnty Indications Ordering Provide r Date Tramadol HCL 50mg Tablets take one every 6 hours for pain Unknown Pantoprazole Sodium 40mg Tablets DR iker Unknown D 1000 1000Unit Capsules Unknown Tizanidine [...] Medical Devices Description No Information Available Encounters Description No Information Available Assessments Description No Information Available Plan of Treatment 01/20/2021 - BERTRAND Goncalves* All * Comments:* GI cocktail containing 10cc viscous lidocaine and 20 cc Maalox given at 12:03 Functional Status Description No Information Available Mental Status Description No Information Available Referrals Description No Information Available
[2021-01-23] MEDS ORDERED: MORPHINE 4 MG/ML 1ML VIAL/SYRINGE (J2270) IV ONE (10:40)
[2021-01-23] MEDS ORDERED: ONDANSETRON 4MG/2ML VIAL IV ONE (10:40)
--- NOTE | 2021-01-23 11:22 | REP ---
INDICATION: Abdominal Pain. COMPARISON: None. TECHNIQUE: PA CHEST WITH TWO-VIEW ABDOMEN FINDINGS: PA chest: Lungs are well inflated and without infiltrate or effusion. The heart, mediastinal and hilar contours are normal. The aorta and airway are intact. Bony thorax shows marginal osteophytes in the spine but no acute bony abnormality. No free air under the diaphragm. Abdomen flat and upright view shows scattered stool in the colon without abnormal dilatation. There is scattered gas in small bowel loops which are not dilated. No air-fluid levels identified. There are no abnormal calcifications over the renal fossa the or expected course of the ureters. The bones show sacralization of the right transverse process of L5 as anatomic variation. There are 6 non rib-bearing vertebral bodies noted, also an anatomic variation. No fracture or destructive lesion identified. IMPRESSION: 1. Nonspecific gas pattern without obstruction, mass or free air. 2. No abnormal soft tissue calcifications overlying the renal fossa or expected course of the ureters. 3. Sacralization transverse process L5 on the right. 4. PA chest without acute finding. <Electronically signed by Robson Duggan > 01/23/21 0472
[2021-01-23 11:49] LABS: BASO % 0.5 % (0.0-1.0); EOS # 0.1 10^3/uL (0.0-0.5); EOS % 1.2 % (0.0-3.0); HEMATOCRIT 45.3 % (36.0-47.0); HEMOGLOBIN 14.5 g/dl (12.0-15.5); LYMPH # 2.9 10^3/uL (1.5-5.0); LYMPH % 34.2 % (24.0-44.0); MEAN CORPUSCULAR HEMOGLOBIN 30.2 pg (27.0-33.0); MEAN CORPUSCULAR VOLUME 94.4 fl (80.0-96.0); MONO # 0.5 10^3/uL (0.0-0.8); NEUTROPHILS # 4.9 10^3/uL (1.5-8.5); NEUTROPHILS % 57.9 % (36.0-66.0); PLATELET COUNT, AUTOMATED 246 10^3/uL (150-450); WHITE BLOOD COUNT 8.5 10^3/uL (4.0-10.0)
--- NOTE | 2021-01-23 12:01 | REP ---
INDICATION: RUQ pain wrappin to back, r/o stones. COMPARISON: None. TECHNIQUE: Right upper quadrant sonography. FINDINGS: Scanning through the right upper quadrant of the abdomen demonstrates a normal sized, thin-walled gallbladder without evidence of stone or polyp. Common bile duct is normal measuring 0.4 cm in greatest diameter. No focal liver lesion is seen. Liver size is normal. No pancreatic abnormality is observed. No right renal abnormality is seen. There is no evidence of ascites. The right kidney measures 10.7 x 5.4 x 3.4 cm. IMPRESSION: Negative right upper quadrant sonography. <Electronically signed by Angel Leavitt > 01/23/21 2066
--- OUTSIDE RECORDS SUMMARY | 2021-01-23 12:11 | CCD ---
Author Author [facility] Organization [facility] Address Unknown Phone Unavailable Care Team Providers Care Rn Call Center Name Role Phone Malcolm, Rula MAJOR LEAGUE BASEBALL UMPIRE Unavailable Unavailable Malcolm, Rula MAJOR LEAGUE BASEBALL UMPIRE Unavailable Unavailable Malcolm, Rula MAJOR LEAGUE BASEBALL UMPIRE Unavailable Unavailable Malcolm, Rula MAJOR LEAGUE BASEBALL UMPIRE Unavailable Unavailable Malcolm, Rula MAJOR LEAGUE BASEBALL UMPIRE Unavailable Unavailable Malcolm, Rula MAJOR LEAGUE BASEBALL UMPIRE Unavailable Unavailable Malcolm, Rula MAJOR LEAGUE BASEBALL UMPIRE Unavailable Unavailable Malcolm, Rula MAJOR LEAGUE BASEBALL UMPIRE Unavailable Unavailable Malcolm, Rula MAJOR LEAGUE BASEBALL UMPIRE Unavailable Unavailable Malcolm, Rula MAJOR LEAGUE BASEBALL UMPIRE Unavailable Unavailable Malcolm, Rula MAJOR LEAGUE BASEBALL UMPIRE Unavailable Unavailable Kay Pires PA Unavailable Unavailable Kay Pires PA Unavailable Unavailable Kay Pires PA Unavailable Unavailable Kay Pires PA Unavailable Unavailable Kay Pires Unavailable Unavailable Kay Pires PA Unavailable Unavailable Kay Pires PA Unavailable Unavailable Kay Pires PA Unavailable Unavailable Kay Pires PA Unavailable Unavailable Kay Pires PA Unavailable Unavailable Re-disclosure Warning The records that [...] is protected by Article 27-F of the [facility] Public Health law. If you continue you may have access to information: Regarding HIV / AIDS; Provided by facilities licensed or operated by the [facility] Office of Mental Health; or Provided by the [facility] Office for People With Developmental Disabilities. If such information is present, then the following [facility] mandated warning applies: This information has been [...] law may result in a fine or prison sentence or both. A general authorization for the release of medical or other information is NOT sufficient authorization for further disc losure. Allergies and Adverse Reactions Type Description Substance Reaction Status Data Source(s ) Seasonal Seasonal Seasonal itchy eyes, nasal drainage Active eCW1 ([facility]) Family History Family Member Name Family Member Gender Family Member Status Date o f Status Description Data Source(s) Unknown Unknown Problem MEDENT ([facility]) Unknown Unknown Problem MEDENT ([facility] ) Unknown Unknown Problem MEDENT ([facility] ) Encounters Encounter Providers Location Date Indications Data Source(s ) Outpatient Attender: Camila oquendo 01/20/2021 10:30:00 AM EST MEDENT ([facility] [place] [address] [facility] [address] 12/29/2020 12:00:00 AM EST eCW1 ([facility]) [place] [address] [facility] [address] 10/27/2020 12:00:00 AM EST eCW1 ([facility]) [place] [address] [facility] [address] 10/08/2020 12:00:00 AM EST [facility] [place] [address] [facility] [address] 10/07/2020 12:00:00 AM EST [facility] [place] [address] [facility] [place] [address] 09/25/2020 12:00:00 AM EDT eCW1 ([facility]) [place] [address] [facility] [address] 08/27/2020 12:00:00 AM EDT eCW1 ([facility]) [place] [address] [facility] [address] 06/11/2020 12:00:00 AM EDT [facility]1 [facility]) TeleMedicine Phone E/M by Phys 11-[address] [place] [phone] 05/02/2020 12:00:00 AM EDT eCW1 ([facility]) [facility] [address] [place] [phone] 04/14/2020 12:00:00 AM EDT eCW1 ([facility]) [facility] [address] [facility] [address] 03/05/2020 12:00:00 AM EDT [facility]CW1 [facility]) [facility] [address] [place] [address] 02/12/2020 12:00:00 AM EDT eCW1 ([facility]) [facility] [address] [place] [phone] 01/31/2020 12:00:00 AM EST eCW1 ([facility]) Outpatient Attender: Rula Everettmisti geiger 01/16/2020 02:05:00 PM EST MEDENT ([facility]) [facility] [address] [place] [phone] 01/09/2020 12:00:00 AM EST eCW1 ([facility]) Outpatient Attender: Rula Peterson Amos geiger 01/02/2020 02:50:00 PM EST MEDENT ([facility]) Medications Medication Brand Name Start Date Product Form Dose Route Admi nistrative Instructions Pharmacy Instructions Status Indications Reaction Description Data Source(s) Lidocaine Hydrochloride 20 MG/ML Mucous Membrane Topic al Solution Lidocaine Hydrochloride Viscous 01/20/2021 12:00:00 AM EST a ctive MEDENT ([facility]) Famotidine 20 MG Oral Tablet Famotidine 01/20/2021 12:00:00 AM EST active MEDENT ([facility]) Sucralfate 1000 MG Oral Tablet [Carafate] Carafate 01/20/2021 1 2:00:00 AM EST active MEDENT ([facility]) Ondansetron 4 MG Disintegrating Oral Tablet Ondansetron 01/20/2021 12:00:00 AM EST active MEDENT ([facility]) 4 mg 01/20/2021 12:00:00 AM EST tablet,disintegrating 1 5 DISSOLVE ONE TABLET UNDER THE TONGUE THREE TIMES A DAY NEEDED DISSOLVE ONE TABLET UNDER THE TONGUE THREE TIMES A DAY NEEDED SOLD: 01/20/2021 [facility] valacyclovir 1000 MG Oral Tablet Valacyclovir HCL 01/16/2020 12:00: 00 AM EST active MEDENT ([facility]) benzonatate 100 MG Oral Capsule Benzonatate 01/16/2020 12:00:00 AM EST ORAL active MEDENT ([facility]) Amoxicillin 875 MG / Clavulanate 125 MG Oral Tablet Am oxicillin/Clavulanate Potassium 01/02/2020 12:00:00 AM EST ORAL completed MEDENT ([facility]) 875-125 mg 01/02/2020 12:00:00 AM EST tablet 20 TAKE ONE TABLET BY MOUTH TWICE A DAY FOR 10 DAYS TAKE ONE TABLET BY MOUTH TWICE A DAY FOR 10 DAYS SOLD: 01/02/2020 [facility] Insurance Providers Payer name Policy type / Coverage type Policy ID Covered republican ID Covered republican's relationship to tomas Policy Tomas Plan Information [facility] [id number] SP [id number] [facility] [id number] SP [id number] [facility] Health Maintenance Organization ([facility]) [id number] Self [id number] ANS-Medicaid [id number] ANSI-Medicaid [id number] ANSI-Medicaid [id number] ANSI-Medicaid [id number] ANSI-Medicaid [id number] ANSI-Medicaid [id number] ANS-Medicaid [id number] ANS-Medicaid [id number] ANSI-Medicaid [id number] ANSI-Medicaid [id number] ANSI-Medicaid [id number] ANSI-Medicaid [id number] ANSI-Medicaid [id number] ANSI-Medicaid [id number] ANSI-Medicaid [id number] ANSI-Medicaid [id number] ANSI-Medicaid [id number] ANSI-Medicaid [id number] [employer] [place] PPO 302/307 [id number] SP [id number] MEDICAID [id number] SP [id number] MEDICAID M [id number] S [id number] [employer] B [id number] S [id number] [facility] O [id number] S [id number] [employer] Health Maintenance Organization (HMO) Self [employer] P [id number] S [id number] BLUE CROSS BERGMAN PLAN [id number] SP [id number] HMO BLUE [id number] SP [id number] Surgeries/Procedures Procedure Description Date Indications Data Source(s) ESTABILISHED PATIENT RELIGIOUS FACILITY CHARGE 020 12:00:00 AM EST eCW1 ([facility]) Results ID Date Data Source [id number] 01/19/2021 11:20:00 AM EST [facility] Name Value Range Interpretation Code Description Data Isabella rce(s) Supporting Document(s) SARS coronavirus 2 RNA Not Detected [facility] This lab was ordered by [facility] and reported by [facility]. ID Date Data Source [id number] 01/15/2021 12:00:00 AM EST [facility] Name Value Range Interpretation Code Description Data Isabella rce(s) Supporting Document(s) SARS coronavirus 2 Ag NEGATIVE [facility] This lab was ordered by [facility] and reported by [facility]. ID Date Data Source [id number] 01/12/2021 01:00:00 PM EST [facility] Name Value Range Interpretation Code Description Data Isabella rce(s) Supporting Document(s) SARS coronavirus 2 RNA Not Detected [facility] [place] This lab was ordered by [facility] and reported by [facility]. ID Date Data Source [id number] 01/08/2021 12:00:00 AM EST [facility] Name Value Range Interpretation Code Description Data Isabella rce(s) Supporting Document(s) SARS coronavirus 2 Ag NEGATIVE [facility] This lab was ordered by [facility] and reported by [facility]. ID Date Data Source [id number] 01/05/2021 10:30:00 AM EST [facility] Name Value Range Interpretation Code Description Data Isabella rce(s) Supporting Document(s) SARS coronavirus 2 RNA Not Detected [facility] [place] This lab was ordered by [facility] and reported by [facility]. ID Date Data Source [id number] 01/01/2021 12:00:00 AM EST [facility] Name Value Range Interpretation Code Description Data Isabella rce(s) Supporting Document(s) SARS coronavirus 2 Ag [facility] This lab was ordered by [facility] and reported by [facility]. ID Date Data Source [id number] 12/29/2020 01:00:00 PM EST [facility] Name Value Range Interpretation Code Description Data Isabella rce(s) Supporting Document(s) SARS coronavirus 2 RNA Not Detected [facility] This lab was ordered by [facility] and reported by [facility]. ID Date Data Source [id number] 12/25/2020 12:00:00 AM EST [facility] Name Value Range Interpretation Code Description Data Isabella rce(s) Supporting Document(s) SARS coronavirus 2 Ag NEGATIVE [facility] This lab was ordered by [facility] and reported by [facility]. ID Date Data Source [id number] 12/22/2020 02:00:00 PM EST [facility] Name Value Range Interpretation Code Description Data Isabella rce(s) Supporting Document(s) SARS coronavirus 2 RNA Not Detected [facility] This lab was ordered by [facility] and reported by [facility]. ID Date Data Source [id number] 12/18/2020 12:00:00 AM EST [facility] Name Value Range Interpretation Code Description Data Isabella rce(s) Supporting Document(s) SARS coronavirus 2 Ag Negative [facility] This lab was ordered by [facility] and reported by [facility]. ID Date Data Source [id number] 12/15/2020 09:59:00 AM EST [facility] Name Value Range Interpretation Code Description Data Isabella rce(s) Supporting Document(s) SARS coronavirus 2 RNA Not Detected [facility] This lab was ordered by [facility] and reported by [facility]. ID Date Data Source [id number] 12/11/2020 12:00:00 AM EST [facility] Name Value Range Interpretation Code Description Data Isabella rce(s) Supporting Document(s) SARS-CoV2 Rapid Antigen Negative [facility] This lab was ordered by [facility] and reported by [facility]. ID Date Data Source [id number] 12/08/2020 02:30:00 PM EST [facility] Name Value Range Interpretation Code Description Data Isabella rce(s) Supporting Document(s) SARS coronavirus 2 RNA Not Detected [facility] This lab was ordered by [facility] and reported by [facility]. ID Date Data Source [id number] 12/01/2020 02:00:00 PM EST [facility] Name Value Range Interpretation Code Description Data Isabella rce(s) Supporting Document(s) SARS coronavirus 2 RNA Not Detected [facility] This lab was ordered by [facility] and reported by [facility]. ID Date Data Source [id number] 11/24/2020 10:40:00 AM EST [facility] Name Value Range Interpretation Code Description Data Isabella rce(s) Supporting Document(s) SARS coronavirus 2 RNA [facility] This lab was ordered by [facility] and reported by [facility]. ID Date Data Source [id number] 11/17/2020 03:00:00 PM EST [facility] Name Value Range Interpretation Code Description Data Isabella rce(s) Supporting Document(s) SARS coronavirus 2 RNA [facility] This lab was ordered by [facility] and reported by [facility]. ID Date Data Source [id number] 11/10/2020 12:00:00 PM EST [facility] Name Value Range Interpretation Code Description Data Isabella rce(s) Supporting Document(s) SARS coronavirus 2 RNA [facility] This lab was ordered by [facility] and reported by [facility]. ID Date Data Source [id number] 11/03/2020 10:50:00 AM EST [facility] Name Value Range Interpretation Code Description Data Isabella rce(s) Supporting Document(s) SARS coronavirus 2 RNA [facility] This lab was ordered by [facility] and reported by [facility]. ID Date Data Source [id number] 10/27/2020 02:02:00 PM EST [facility] Name Value Range Interpretation Code Description Data Isabella rce(s) Supporting Document(s) SARS coronavirus 2 RNA [facility] This lab was ordered by [facility] and reported by [facility]. ID Date Data Source [id number] 10/20/2020 03:30:00 PM EST [facility] Name Value Range Interpretation Code Description Data Isabella rce(s) Supporting Document(s) SARS coronavirus 2 RNA [facility] This lab was ordered by [facility] and reported by [facility]. ID Date Data Source [id number] 10/13/2020 11:09:00 AM EST [facility] Name Value Range Interpretation Code Description Data Isabella rce(s) Supporting Document(s) SARS coronavirus 2 RNA [facility] This lab was ordered by [facility] and reported by [facility]. ID Date Data Source [id number] 10/06/2020 02:15:00 PM EST [facility] Name Value Range Interpretation Code Description Data Isabella rce(s) Supporting Document(s) SARS coronavirus 2 RNA [facility] This lab was ordered by [facility] and reported by [facility]. ID Date Data Source [id number] 09/29/2020 01:37:00 PM EST [facility] Name Value Range Interpretation Code Description Data Isabella rce(s) Supporting Document(s) SARS coronavirus 2 RNA [facility] This lab was ordered by [facility] and reported by [facility]. ID Date Data Source [id number] 09/22/2020 02:04:00 PM EDT [facility] Name Value Range Interpretation Code Description Data Isabella rce(s) Supporting Document(s) SARS coronavirus 2 RNA [facility] This lab was ordered by [facility] and reported by [facility]. ID Date Data Source [id number] 09/15/2020 10:28:00 AM EDT [facility] Name Value Range Interpretation Code Description Data Isabella rce(s) Supporting Document(s) SARS coronavirus 2 RNA [facility] This lab was ordered by [facility] and reported by [facility]. ID Date Data Source [id number] 09/08/2020 08:00:00 AM EDT [facility] Name Value Range Interpretation Code Description Data Isabella rce(s) Supporting Document(s) SARS coronavirus 2 RNA [facility] This lab was ordered by [facility] and reported by [facility]. ID Date Data Source [id number] 09/01/2020 02:00:00 PM EDT [facility] Name Value Range Interpretation Code Description Data Isabella rce(s) Supporting Document(s) SARS coronavirus 2 RNA [facility] This lab was ordered by [facility] and reported by [facility]. ID Date Data Source [id number] 08/25/2020 12:00:00 PM EDT [facility] Name Value Range Interpretation Code Description Data Isabella rce(s) Supporting Document(s) SARS coronavirus 2 RNA [facility] This lab was ordered by [facility] and reported by [facility]. ID Date Data Source [id number] 08/18/2020 12:00:00 PM EDT [facility] Name Value Range Interpretation Code Description Data Isabella rce(s) Supporting Document(s) SARS coronavirus 2 RNA [facility] This lab was ordered by [facility] and reported by [facility]. ID Date Data Source [id number] 08/11/2020 05:30:00 AM EDT [facility] Name Value Range Interpretation Code Description Data Isabella rce(s) Supporting Document(s) SARS coronavirus 2 RNA [facility] This lab was ordered by [facility] and reported by [facility]. ID Date Data Source [id number] 08/06/2020 02:00:00 PM EDT [facility] Name Value Range Interpretation Code Description Data Isabella rce(s) Supporting Document(s) SARS coronavirus 2 RNA [facility] This lab was ordered by [facility] and reported by [facility]. ID Date Data Source [id number] 07/28/2020 12:19:00 PM EDT [facility] Name Value Range Interpretation Code Description Data Isabella rce(s) Supporting Document(s) SARS coronavirus 2 RNA [facility] This lab was ordered by [facility] and reported by [facility]. ID Date Data Source [id number] 07/21/2020 03:26:00 PM EDT [facility] Name Value Range Interpretation Code Description Data Isabella rce(s) Supporting Document(s) SARS coronavirus 2 RNA [facility] This lab was ordered by [facility] and reported by [facility]. ID Date Data Source [id number] 07/21/2020 08:17:00 AM EDT [facility] Name Value Range Interpretation Code Description Data Isabella rce(s) Supporting Document(s) SARS coronavirus 2 RNA [facility] This lab was ordered by [facility] and reported by [facility]. ID Date Data Source [id number] 06/16/2020 01:27:00 PM EDT [facility] Name Value Range Interpretation Code Description Data Isabella rce(s) Supporting Document(s) SARS coronavirus 2 RNA [facility] This lab was ordered by [facility] and reported by [facility]. ID Date Data Source [id number] 06/02/2020 05:30:00 AM EDT [facility] Name Value Range Interpretation Code Description Data Isabella rce(s) Supporting Document(s) SARS coronavirus 2 RNA [facility] This lab was ordered by [facility] and reported by [facility]. ID Date Data Source [id number] 05/26/2020 11:51:00 AM EDT [facility] Name Value Range Interpretation Code Description Data Isabella rce(s) Supporting Document(s) SARS CORONAVIRUS 2 RNA [facility] This lab was ordered by [facility] and reported by [facility]. ID Date Data Source [id number] 05/19/2020 09:09:00 AM EDT [facility] Name Value Range Interpretation Code Description Data Isabella rce(s) Supporting Document(s) SARS CORONAVIRUS 2 RNA [facility] This lab was ordered by [facility] and reported by [facility]. ID Date Data Source [id number] 05/12/2020 11:21:00 AM EDT [facility] Name Value Range Interpretation Code Description Data Isabella rce(s) Supporting Document(s) SARS CORONAVIRUS 2 RNA [facility] This lab was ordered by [facility] and reported by [facility]. ID Date Data Source [id number] 05/05/2020 05:30:00 AM EDT [facility] Name Value Range Interpretation Code Description Data Isabella rce(s) Supporting Document(s) SARS CORONAVIRUS 2 RNA [facility] This lab was ordered by [facility] and reported by [facility]. ID Date Data Source [id number] 05/01/2020 06:00:00 AM EDT [facility] Name Value Range Interpretation Code Description Data Isabella rce(s) Supporting Document(s) SARS CORONAVIRUS 2 RNA [facility] This lab was ordered by [facility] and reported by [facility]. ID Date Data Source [id number] 04/28/2020 02:20:00 PM EDT [facility] Name Value Range Interpretation Code Description Data Isabella rce(s) Supporting Document(s) SARS CORONAVIRUS 2 RNA [facility] This lab was ordered by [facility] and reported by [facility]. ID Date Data Source [id number] 04/24/2020 08:00:00 AM EDT [facility] Name Value Range Interpretation Code Description Data Isabella rce(s) Supporting Document(s) SARS CORONAVIRUS 2 RNA [facility] This lab was ordered by [facility] and reported by [facility]. ID Date Data Source [id number] 04/22/2020 05:30:00 AM EDT [facility] Name Value Range Interpretation Code Description Data Isabella rce(s) Supporting Document(s) SARS CORONAVIRUS 2 RNA [facility] This lab was ordered by [facility] and reported by [facility]. ID Date Data Source [id number] 04/16/2020 11:14:00 AM EDT [facility] Name Value Range Interpretation Code Description Data Isabella rce(s) Supporting Document(s) SARS CORONAVIRUS 2 RNA [facility] This lab was ordered by [facility] and reported by [facility]. ID Date Data Source [id number] 04/07/2020 06:32:00 AM EDT [facility] Name Value Range Interpretation Code Description Data Isabella rce(s) Supporting Document(s) SARS CORONAVIRUS 2 RNA [facility] This lab was ordered by [facility] and reported by [facility]. Procedure Social History Code Duration Value Status Description Data Source(s ) Smoking 12/16/2020 12:00:00 AM EST Current Smoker completed Curre nt Smoker eCW1 ([facility]) Smoking 10/07/2020 12:00:00 AM EST Current Smoker completed Curre nt Smoker eCW1 ([facility]) Smoking 10/07/2020 12:00:00 AM EST Current Smoker completed Curre nt Smoker eCW1 ([facility]) Smoking 10/07/2020 12:00:00 AM EST Current Smoker completed Curre nt Smoker eCW1 ([facility]) Smoking 05/01/2020 12:00:00 AM EDT Current Smoker completed Curre nt Smoker eCW1 ([facility]) Smoking 05/01/2020 12:00:00 AM EDT Current Smoker completed Curre nt Smoker eCW1 ([facility]) Smoking 05/01/2020 12:00:00 AM EDT Current Smoker completed Curre nt Smoker eCW1 ([facility]) Smoking 05/01/2020 12:00:00 AM EDT Current Smoker completed Curre nt Smoker eCW1 ([facility]) Vital Signs ID Date Data Source UNK Name Value Range Interpretation Code Description Data Source(s) Body mass index (BMI) [Ratio] 45.2 kg/m2 45.2 k g/m2 [facility]) Body height 66 [in_i] 66 [in_i] [facility] ([facility]) 5'6" Body weight 280.00 [lb_av] 280.00 [lb_av] [facility] ([facility]) Body temperature 98.1 [degF] 98.1 [degF] [facility] ([facility]) Oxygen saturation in Arterial blood by Pulse oximetry 99 % 99 % [facility] ([facility]) Respiratory rate 16 /min 16 /min [facility] ( [facility] Heart rate 60 /min 60 /min [facility] ([facility]) Diastolic blood pressure 83 mm[Hg] 83 mm[Hg] [facility] ([facility]) Systolic blood pressure 119 mm[Hg] 119 mm[Hg] [facility] ([facility] [facility]) Diastolic blood pressure 69 mm[Hg] 69 mm[Hg] eCW1 ([facility]) Systolic blood pressure 123 mm[Hg] 123 mm[Hg] e CW1 ([facility]) Body temperature 96.7 [degF] 96.7 [degF] eCW1 ( [facility]) Respiratory rate 18 /min 18 /min eCW1 ([facility]) Heart rate 76 /min 76 /min eCW1 ([facility]) Body mass index (BMI) [Ratio] 46.45 kg/m2 46.45 kg/m2 eCW1 ([facility]) Body height 66 [in_i] 66 [in_i] eCW1 ([facility]) Body weight 287.8 [lb_av] 287.8 [lb_av] eCW1 ([facility]) Diastolic blood pressure 78 mm[Hg] 78 mm[Hg] eCW1 ([facility]) Systolic blood pressure 130 mm[Hg] 130 mm[Hg] e CW1 ([facility]) Body temperature 97.7 [degF] 97.7 [degF] eCW1 ( [facility]) Respiratory rate 18 /min 18 /min eCW1 ([facility]) Heart rate 79 /min 79 /min eCW1 ([facility]) Body mass index (BMI) [Ratio] 47.71 kg/m2 47.71 kg/m2 W1 ([facility]) Body height 66 [in_us] 66 [in_us] eCW1 ([facility]) Body weight Measured 295.6 [lb_av] 295.6 [lb_av ] eCW1 ([facility]) Body mass index (BMI) [Ratio] 47.1 kg/m2 47.1 k g/m2 MEDENT ([facility]) Body height 66 [in_i] 66 [in_i] MEDENT ([facility]) 5'6" Body weight 292.00 [lb_av] 292.00 [lb_av] MEDEN T ([facility]) Body temperature 99.0 [degF] 99.0 [degF] MEDENT ([facility]) Oxygen saturation in Arterial blood by Pulse oximetry 100 % 100 % MEDENT ([facility], [facility]) Respiratory rate 12 /min 12 /min MEDENT ( [facility], [facility]) Heart rate 70 /min 70 /min [facility], [facility]) Diastolic blood pressure 82 mm[Hg] 82 mm[Hg] MEDENT ([facility], [facility]) Systolic blood pressure 119 mm[Hg] 119 mm[Hg] M [facility] ([facility], [facility]) Body mass index (BMI) [Ratio] 47.1 kg/m2 47.1 k g/m2 MEDENT ([facility], [facility]) Body height 66 [in_i] 66 [in_i] [facility] ([facility], [facility]) 5'6" Body weight 292.00 [lb_av] 292.00 [lb_av] MEDEN T ([facility], [facility]) Body temperature 97.8 [degF] 97.8 [degF] [facility] ([facility], [facility]) Oxygen saturation in Arterial blood by Pulse oximetry 96 % 96 % MEDENT ([facility], [facility]) Respiratory rate 14 /min 14 /min MEDENT ( [facility], [facility]) Heart rate 74 /min 74 /min [facility] ([facility], [facility]) Diastolic blood pressure 82 mm[Hg] 82 mm[Hg] [facility] ([facility], [facility]) Systolic blood pressure 131 mm[Hg] 131 mm[Hg] [facility] ([facility], [facility])
[2021-01-23 12:35] LABS: ALBUMIN 4.1 GM/DL (3.2-5.2); ALT/SGPT 22 U/L (12-78); BILIRUBIN,DIRECT < 0.1 MG/DL (0.0-0.2); BILIRUBIN,TOTAL 0.5 MG/DL (0.2-1.0); BLOOD UREA NITROGEN 14 MG/DL (7-18); CALCIUM LEVEL 9.4 MG/DL (8.5-10.1); CARBON DIOXIDE LEVEL 31 MEQ/L (21-32); CHLORIDE LEVEL 104 MEQ/L (98-107); GLOMERULAR FILTRATION RATE > 60.0 (>58); GLUCOSE, FASTING 83 MG/DL (70-100); LIPASE 81 U/L (73-393); POTASSIUM SERUM 4.5 MEQ/L (3.5-5.1); SODIUM LEVEL 138 MEQ/L (136-145); TOTAL PROTEIN 7.5 GM/DL (6.4-8.2)
[2021-01-23 12:37] LABS: CK-MB VALUE MASS 1.4 NG/ML (<3.6); CPK CREATINE PHOSPHOKINASE 97 U/L (26-192); MB/CK RELATIVE INDEX 1.44 (< OR =4); TROPONIN I < 0.02 NG/ML (< 0.10)
[2021-01-23 13:32] VITALS: BP 124/64
--- NOTE | 2021-01-23 17:08 | ECGEPIP ---
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
== END 2021-01-23 13:41 | disposition home or self-care (01) ==
LOC: M ED 09:41
DX: K80.50 Calculus of bile duct without cholangitis or cholecystitis without obstruction (principal); K21.9 Gastro-esophageal reflux disease without esophagitis; K58.9 Irritable bowel syndrome, unspecified; E66.9 Obesity, unspecified; Z79.899 Other long term (current) drug therapy; Z88.8 Allergy status to other drugs, medicaments and biological substances; F17.210 Nicotine dependence, cigarettes, uncomplicated
CPT/HCPCS: 74021; 76705; 80048; 80076; 81001; 82550; 82553; 83690; 85025; 93005; 96374; 96375; 99284; J2270; J2405

== ENCOUNTER → 2021-02-13 | Outpatient (CLI) | payer OTHER ==
[~2021-02-13] MED LIST changes: +FAMO20TA PO; +SUCR1SS PO; +ZOFR4TAB16 PO
--- NOTE | 2021-02-17 07:45 | ECWPNPC ---
PATIENT NAME: EMILIE GILL : 1980 GENDER: FEMALE VISIT DATE: 02/13/2021 DISCHARGE DATE: 02/13/21 1455 VISIT LOCKED DATE TIME: PHYSICIAN: SHANIA PRUITT PHYSICIAN PAGER NO: ACTIVE RESOURCE: SHANIA PRUITT REASON FOR APPOINTMENT 1. LOW BACK PAIN HISTORY OF PRESENT ILLNESS DEPRESSION SCREENING: PHQ-2 (2015 EDITION) LITTLE INTEREST OR PLEASURE IN DOING THINGS?NOT AT ALL FEELING DOWN, DEPRESSED, OR HOPELESS?NOT AT ALL TOTAL SCORE0 40-YEAR-OLD FEMALE IN FOR CHRONIC PAIN FOLLOW-UP. SHE RATES HER PAIN CURRENTLY AT A 10 OUT OF 10 AND DESCRIBES IT ACHING, BURNING, SHARP, STABBING, THROBBING, AND SHOOTING. GENERAL: -. FALL RISK SCREENING: SCREENING : NO FALLS REPORTED IN THE LAST YEAR. PAIN SCREENING: PATIENT HAS A COMPLAINT OF ACUTE OR CHRONIC PAIN :YES LOCATION OF PAIN:UPPER BACK, MID BACK INTENSITY OF PAIN (SCALE OF 1 TO 10):10 WHAT DOES YOUR PAIN FEEL LIKE:ACHING, BURNING, SHARP, STABBING, THROBBING, SHOOTING DURATION:INTERMITTENT PAIN IS INCREASED BY:ACTIVITIES PAIN IS DECREASED BY:USE OF PAIN MEDICATIONS NURSING NOTE: -. PAIN CENTER INTAKE QUESTIONS: DO YOU HAVE A HISTORY OF MRSA? :NO DO YOU TAKE A BLOOD THINNERS? :NO DO YOU HAVE ANY BLEEDING DISORDERS? :NO ANY NEW NUMBNESS OR WEAKNESS IN YOUR LEGS OR ARMS? :NO ANY PACEMAKER,DEFIBRILLATOR, OR DORSAL COLUMN STIMULATOR? :NO DO YOU HAVE ANY RASHES OR OPEN SORES? :NO ARE YOU ALLERGIC TO IV DYE? :NO ARE YOU DIABETIC? :NO ANY NEW PROBLEMS WITH YOUR MEDICATIONS? :NO HAVE YOU RECEIVED A VACCINE IN THE PAST 30 DAYS? :NO DO YOU PLAN TO RECEIVE A VACCINE IN THE NEXT 21 DAYS? :NO DO YOU NEED ANY PRESCRIPTION? :NO DO YOU TAKE ANY IMMUNOSUPPRESSIVE MEDICATIONS? :NO DO YOU HAVE ANY KIDNEY OR LIVER DISEASE? :NO IS THERE A CHANCE YOU COULD BE ? :NO ARE YOU BREAST FEEDING? :NO CURRENT MEDICATIONS TAKING VITAMIN D 1000 UNIT TABLET 1 TABLET ORALLY ONCE A DAY TAKING MULTIVITAMINS CAPSULE 1 ORALLY DAILY TAKING LORATADINE 10 MG TABLET 1 TABLET ORALLY ONCE A DAY PRN ALLERGIES TAKING DICYCLOMINE HCL 20 MG TABLET 1 TABLET ORALLY THREE TIMES DAILY PRN TAKING FLONASE ALLERGY RELIEF 50 MCG/ACT SUSPENSION USE 1 SPRAY(S) IN EACH NOSTRIL TWICE DAILY FOR 30 DAYS TAKING TIZANIDINE HCL 4 MG TABLET 1.5 TABLET NEEDED ORALLY BEFORE BEDTIME TAKING TRAMADOL HCL 50 MG TABLET 1 TABLET EVERY 6 HOURS PRN MDD=4 ORALLY Q6H PRN MDD4, NOTES: CHRONIC PAIN TAKING PANTOPRAZOLE SODIUM 40 MG TABLET DELAYED RELEASE 1 TABLET ORALLY ONCE A DAY NOT-TAKING ONDANSETRON 4 MG TABLET DISINTEGRATING DISSOLVE ONE TABLET UNDER THE TONGUE THREE TIMES A DAY NEEDED ORAL NOT-TAKING FAMOTIDINE 20 MG TABLET TAKE 1 TABLET BY MOUTH TWICE DAILY ORAL NOT-TAKING SUCRALFATE 1 GM TABLET TAKE 1 TABLET BY MOUTH THREE TIMES DAILY WITH EACH MEAL AND 1 TABLET BEFORE BED TAKE SEPARATELY FROM OTHER MEDICATIONS BY AT LEAST ONE HOUR ORAL MEDICATION LIST REVIEWED AND RECONCILED WITH THE PATIENT PAST MEDICAL HISTORY ANXIETY - HAS TRIED MULTIPLE MEDS - HAS LEARNED TO MANAGE THIS WITH CBT SEASONAL ALLERGIES CHRONIC LOW BACK PAIN/MRI SHOWED LUMBAR DISC BULGE/HERNIATION - FOLLOWS WITH PAIN CLINIC ON TRAMADOL ESOPHAGEAL REFLUX H/O VITAMIN D DEFICIENCY OBESITY IBS DIARRHEA TYPE CHRONIC CON'T USE OF OPIOIDS ALLERGIES SEASONAL: ITCHY EYES, NASAL DRAINAGE - ALLERGY SOCIAL HISTORY GENERAL: TOBACCO USE ARE YOU A:CURRENT SMOKER ARE YOU INTERESTED IN QUITTING?NOT READY TO QUIT COUNSELED THE PATIENT ON SMOKING EFFECTS, EDUCATION [id number]/19/2021 HOW MANY CIGARETTES A DAY DO YOU SMOKE?6-10 PATIENT COUNSELED ON THE DANGERS OF TOBACCO USE AND URGED TO QUIT:05/01/2020 SMOKING CESSATION INFORMATION GIVEN05/01/2020 LATEX QUESTIONNAIRE LATEX ALLERGY : HAVE YOU EVER DEVELOPED ANY TYPE OF REACTION AFTER HANDLING LATEX PRODUCTS SUCH RUBBER GLOVES, CONDOMS, DIAPHRAGMS, BALLOONS, SOCKS, OR UNDERWEAR?NO LATEX ALLERGY : HAVE YOU EVER DEVELOPED ANY TYPE OF REACTION DURING OR AFTER DENTAL APPOINTMENT, VAGINAL/RECTAL EXAMINATION, SURGICAL PROCEDURE, OR ANY OTHER EXPOSURE?NO LATEX RISK : HAVE YOU EVER HAD ANY DIFFICULTY BREATHING OR HIVES AFTER EATING OR HANDLING ANY FRUITS, OR VEGETABLES; SUCH KIWI, BANANAS, STONE FRUITS, OR CHESTNUTSNO LATEX RISK : DO YOU HAVE A PREVIOUS PERSONAL HISTORY OF MORE THAN NINE SURGERIES, SPINA BIFIDA, OR REPEATED CATHERIZATIONS? NO LATEX RISK : ARE YOU FREQUENTLY EXPOSED TO LATEX PRODUCTS IN YOUR OCCUPATION?NO DATE ASKED : 12/16/2020 LUNG CANCER SCREENING SMOKING STATUS:FORMER SMOKER IS THE PATIENT BETWEEN THE AGE OF 55 AND 77?NO BMI CARE GOAL FOLLOW-UP ABOVE NORMAL BMI FOLLOW-UPDIETARY MANAGEMENT EDUCATION, GUIDANCE, AND COUNSELING ALCOHOL SCREENING DID YOU HAVE A DRINK CONTAINING ALCOHOL IN THE PAST YEAR?NO POINTS0 INTERPRETATIONNEGATIVE RECREATIONAL DRUG USE DRUG USE?NO CAFFEINE CAFFEINE USE?YES A CUP OF COFFEE A DAY SEXUAL HX HAD SEX IN THE LAST 12 MONTHS (VAGINAL, ORAL, OR ANAL)?YES WITHMEN ONLY USE PROTECTION?NO LMP:08/06/18 HAVE YOU EVER HAD AN STD?NO TEMPLE TEMPLE PENTECOSTAL LANGUAGE LANGUAGES SPOKEN:YORUBA EDUCATION LEVEL OF EDUCATION:HIGH SCHOOL LEARNING BARRIERS / SPECIAL NEEDS CHANGE FROM LAST VISIT?NO BARRIERS TO LEARNING?NO HEARING IMPAIRED?NO VISION IMPAIRED?NO COGNITIVELY IMPAIRED?NO READINESS TO LEARN?YES LEARNING PREFERENCES?NO LEARNING CAPABILITIES PRESENT?YES EMOTIONAL BARRIERS?NO SPECIAL DEVICES?NO PARK INTERPRETIVE RANGER NEEDED?NO DOMESTIC VIOLENCE STATUS: DO YOU FEEL SAFE IN YOUR ENVIRONMENT?YES 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 DIET: REGULAR. EXERCISE: WALKS. MARITAL STATUS: . IMMUNIZATION PROGRAM DO YOU FEEL SAFE IN YOUR ENVIRONMENT? 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 - PFS REFERRAL NEEDED?NO CLERGY REFERRAL NEEDED?NO PUBLIC HEALTH REFERRAL NEEDED?NO WAS THE PROVIDER NOTIFIED OF ANY PERTINENT INFO? N/A HAS THE PATIENT BEEN EDUCATED REGARDING HIS/HER PLAN OF CARE?YES HAS THE PATIENT BEEN EDUCATED REGARDING PAIN, THE RISK FOR PAIN, THE IMPORTANCE OF EFFECTIVE PAIN MANAGEMENT, AND THE PAIN ASSESSMENT PROCESS?YES ADVANCE DIRECTIVE ADVANCE DIRECTIVE DISCUSSED WITH PATIENT:YES PT HAS NO ADVANCED DIRECTIVES, DECLINES INFORMATION ON HCP AT THIS TIME. REVIEW OF SYSTEMS CONSTITUTIONAL: ANY RECENT FEVER NO . CHILLS NO . WEIGHT CHANGE OF UNKNOWN REASONS NO . GASTROENTEROLOGY: NEW UNEXPLAINABLE CHANGES IN BOWEL CONTROL NO . CONSTIPATION NO . GENITOURINARY: ANY NEW CHANGE IN BLADDER CONTROL? NO . NEUROLOGY: NEW ONSET DIZZINESS OR NEUROLOGICAL CHANGES NOT MENTIONED NO . NEW NUMBNESS OR PAIN PATTERNS NOT MENTIONED AND PERTINENT TO TODAY'S VISIT NO . CARDIOLOGY: NEW CHEST PRESSURE NO . PATIENT DENIES NO . RESPIRATORY: UNEXPLAINABLE COUGH NO . NEW SHORTNESS OF BREATH NO . VITAL SIGNS WT 281.2 LBS, HT 66 IN, BMI 45.38 INDEX, BP 138/91 MM HG, HR 79 /MIN, RR 18 /MIN, TEMP 97.8 F, OXYGEN SAT % 98%, SAFE IN ENV? (Y/N) Y, NA INITIALS [place] 14:38, REVIEWED BY: EM. EXAMINATION GENERAL EXAMINATION: GENERALNO ACUTE DISTRESS, WELL NOURISHED AND HYDRATED. PSYCHAPPROPRIATE MOOD AND AFFECT . LUNGS:CLEAR TO AUSCULTATION BILATERALLY, NO WHEEZES, RHONCHI, RALES. HEART:NO MURMURS, REGULAR RATE AND RHYTHM. ASSESSMENTS LOW BACK PAIN - M54.5 (PRIMARY) TREATMENT LOW BACK PAIN START GABAPENTIN CAPSULE, 100 MG, 1 CAPSULE, ORALLY, THREE TIMES DAILY X 5 DAYS, 5 DAY(S), 15 START GABAPENTIN CAPSULE, 300 MG, 1 CAPSULE, ORALLY, THREE TIMES DAILY START DAY 6, 30 DAY(S), 90 [facility] MRI SPINE, L.S. WITHOUT [id number] NOTES: 40-YEAR-OLD FEMALE IN FOR CHRONIC PAIN FOLLOW-UP. GIVEN PRESENTING SYMPTOMS RECOMMEND STARTING GABAPENTIN AND MRI OF THE LUMBAR SPINE WITH FOLLOW-UP POST IMAGING. PATIENT HAS EXPRESSED UNDERSTANDING OF AND WAS IN AGREEMENT WITH TREATMENT PLAN. GIVEN TIME TO ASK QUESTIONS AND EXPRESS CONCERNS. PROCEDURE CODES FA211 ESTABILISHED PATIENT [facility] CHARGE DISPOSITION & COMMUNICATION FOLLOW UP POST IMAGING (REASON: MRI L SPINE WITHOUT CONTRAST ) ELECTRONICALLY SIGNED BY MEGAN ARAUZ ON 02/16/2021 AT 12:49 PM EDT DISCLAIMER : THIS IS A VISIT SUMMARY EXTRACTED FROM THE [employer] CHART. IT IS NOT A COPY OF THE [employer] PROGRESS NOTE. REJI
== END ==
LOC: M PAIN 14:30
PROVIDERS: ATTEND Family Medicine
DX: M54.5 Low back pain (principal); G89.29 Other chronic pain; K21.9 Gastro-esophageal reflux disease without esophagitis; E55.9 Vitamin D deficiency, unspecified; F17.210 Nicotine dependence, cigarettes, uncomplicated; Z86.59 Personal history of other mental and behavioral disorders; E66.01 Morbid (severe) obesity due to excess calories; Z68.42 Body mass index [BMI] 45.0-49.9, adult; Z79.891 Long term (current) use of opiate analgesic; Z79.899 Other long term (current) drug therapy

== ENCOUNTER → 2021-03-10 | Outpatient (CLI) | payer OTHER ==
--- NOTE | 2021-03-11 08:07 | REP ---
INDICATION: LBP. COMPARISON: None. TECHNIQUE: Sagittal T1, T2, stir images of the lumbar spine obtained. Axial T1 and T2 weighted images obtained. FINDINGS: There is hsry-du-bcebjygp multilevel degenerative disc disease with loss of disc height and disc desiccation seen diffusely throughout the lumbar spine. No fracture or malalignment. On the sagittal T2 weighted images, no significant canal stenosis. Conus ends normally at L1 level. On the STIR images, no significant stir signal abnormality to suggest soft tissue or ligamentous injury. On the review of axial images, At L1-2 no significant canal or foraminal narrowing. At L2-3 global disc bulges eccentric to the right and with mild canal narrowing, mild left and ahag-rt-mosivrri right foraminal narrowing. At L3-4 global disc bulge with mild right and moderate left foraminal narrowing and mild canal stenosis. At L4-5 global disc bulge with moderate bilateral foraminal narrowing and no significant canal stenosis. At L5-S1 no significant canal or foraminal narrowing. IMPRESSION: 1. Qfvo-tm-kmxryezo multilevel degenerative disc disease with disc desiccation, loss of disc height and global disc bulges at L2-3 through L4-5 levels. 2. No significant canal stenosis. 3. Multilevel foraminal narrowing, moderate on the left at L3-4 and moderate bilaterally at L4-5 levels. <Electronically signed by Zach Rivera > 03/11/21 08
== END ==
LOC: M PLARAD 15:06
PROVIDERS: ATTEND Family Medicine
DX: M54.5 Low back pain (principal)

== ENCOUNTER → 2021-03-18 | Outpatient (CLI) | payer OTHER ==
--- NOTE | 2021-03-20 00:48 | ECWPNPC ---
PATIENT NAME: EMILIE GILL : 1980 GENDER: FEMALE VISIT DATE: 03/18/2021 DISCHARGE DATE: 03/18/21 1003 VISIT LOCKED DATE TIME: PHYSICIAN: SHANIA PRUITT PHYSICIAN PAGER NO: ACTIVE RESOURCE: SHANIA PRUITT REASON FOR APPOINTMENT 1. MRI REVIEW HISTORY OF PRESENT ILLNESS GENERAL: -40-YEAR-OLD FEMALE IN FOR CHRONIC PAIN FOLLOW-UP. AT LAST CLINIC VISIT PATIENT WAS STARTED ON GABAPENTIN AND SHE ADMITS TODAY THAT THIS HAS BEEN BENEFICIAL. PATIENT HAD MRI DONE WHICH WILL BE REVIEWED WITH PATIENT TODAY. FALL RISK SCREENING: SCREENING : NO FALLS REPORTED IN THE LAST YEAR. PAIN SCREENING: PATIENT HAS A COMPLAINT OF ACUTE OR CHRONIC PAIN :YES LOCATION OF PAIN:LOW BACK INTENSITY OF PAIN (SCALE OF 1 TO 10):4 WHAT DOES YOUR PAIN FEEL LIKE:ACHING, BURNING, CONTINOUS, TENDER, SORE, SHOOTING DURATION:CONTINOUS, CONSTANT, ALL DAY PAIN IS INCREASED BY:ACTIVITIES PAIN IS DECREASED BY:OTHERS HEAT AND LAYING DOWN NURSING NOTE: -. PAIN CENTER INTAKE QUESTIONS: DO YOU HAVE A HISTORY OF MRSA? :NO DO YOU TAKE A BLOOD THINNERS? :NO DO YOU HAVE ANY BLEEDING DISORDERS? :NO ANY NEW NUMBNESS OR WEAKNESS IN YOUR LEGS OR ARMS? :NO ANY PACEMAKER,DEFIBRILLATOR, OR DORSAL COLUMN STIMULATOR? :NO DO YOU HAVE ANY RASHES OR OPEN SORES? :NO ARE YOU ALLERGIC TO IV DYE? :NO ARE YOU DIABETIC? :NO ANY NEW PROBLEMS WITH YOUR MEDICATIONS? :NO HAVE YOU RECEIVED A VACCINE IN THE PAST 30 DAYS? :NO DO YOU PLAN TO RECEIVE A VACCINE IN THE NEXT 21 DAYS? :NO DO YOU NEED ANY PRESCRIPTION? :NO DO YOU TAKE ANY IMMUNOSUPPRESSIVE MEDICATIONS? :NO DO YOU HAVE ANY KIDNEY OR LIVER DISEASE? :NO IS THERE A CHANCE YOU COULD BE ? :NO ARE YOU BREAST FEEDING? :NO CURRENT MEDICATIONS TAKING VITAMIN D 1000 UNIT TABLET 1 TABLET ORALLY ONCE A DAY TAKING MULTIVITAMINS CAPSULE 1 ORALLY DAILY TAKING LORATADINE 10 MG TABLET 1 TABLET ORALLY ONCE A DAY PRN ALLERGIES TAKING DICYCLOMINE HCL 20 MG TABLET 1 TABLET ORALLY THREE TIMES DAILY PRN TAKING FLONASE ALLERGY RELIEF 50 MCG/ACT SUSPENSION USE 1 SPRAY(S) IN EACH NOSTRIL TWICE DAILY FOR 30 DAYS TAKING TIZANIDINE HCL 4 MG TABLET 1.5 TABLET NEEDED ORALLY BEFORE BEDTIME TAKING PANTOPRAZOLE SODIUM 40 MG TABLET DELAYED RELEASE 1 TABLET ORALLY ONCE A DAY TAKING GABAPENTIN 300 MG CAPSULE 1 CAPSULE ORALLY THREE TIMES DAILY START DAY 6 TAKING TRAMADOL HCL 50 MG TABLET 1 TABLET EVERY 6 HOURS PRN MDD=4 ORALLY Q6H PRN MDD4, NOTES: CHRONIC PAIN NOT-TAKING GABAPENTIN 100 MG CAPSULE 1 CAPSULE ORALLY THREE TIMES DAILY X 5 DAYS NOT-TAKING ONDANSETRON 4 MG TABLET DISINTEGRATING DISSOLVE ONE TABLET UNDER THE TONGUE THREE TIMES A DAY NEEDED ORAL NOT-TAKING FAMOTIDINE 20 MG TABLET TAKE 1 TABLET BY MOUTH TWICE DAILY ORAL NOT-TAKING SUCRALFATE 1 GM TABLET TAKE 1 TABLET BY MOUTH THREE TIMES DAILY WITH EACH MEAL AND 1 TABLET BEFORE BED TAKE SEPARATELY FROM OTHER MEDICATIONS BY AT LEAST ONE HOUR ORAL MEDICATION LIST REVIEWED AND RECONCILED WITH THE PATIENT PAST MEDICAL HISTORY ANXIETY - HAS TRIED MULTIPLE MEDS - HAS LEARNED TO MANAGE THIS WITH CBT SEASONAL ALLERGIES CHRONIC LOW BACK PAIN/MRI SHOWED LUMBAR DISC BULGE/HERNIATION - FOLLOWS WITH PAIN CLINIC ON TRAMADOL ESOPHAGEAL REFLUX H/O VITAMIN D DEFICIENCY OBESITY IBS DIARRHEA TYPE CHRONIC CON'T USE OF OPIOIDS ALLERGIES SEASONAL: ITCHY EYES, NASAL DRAINAGE - ALLERGY SOCIAL HISTORY GENERAL: TOBACCO USE ARE YOU A:CURRENT SMOKER ARE YOU INTERESTED IN QUITTING?NOT READY TO QUIT COUNSELED THE PATIENT ON SMOKING EFFECTS, EDUCATION PUAJFNBY52/21/2021 HOW MANY CIGARETTES A DAY DO YOU SMOKE?6-10 PATIENT COUNSELED ON THE DANGERS OF TOBACCO USE AND URGED TO QUIT:05/01/2020 SMOKING CESSATION INFORMATION GIVEN05/01/2020 LATEX QUESTIONNAIRE LATEX ALLERGY : HAVE YOU EVER DEVELOPED ANY TYPE OF REACTION AFTER HANDLING LATEX PRODUCTS SUCH RUBBER GLOVES, CONDOMS, DIAPHRAGMS, BALLOONS, SOCKS, OR UNDERWEAR?NO LATEX ALLERGY : HAVE YOU EVER DEVELOPED ANY TYPE OF REACTION DURING OR AFTER DENTAL APPOINTMENT, VAGINAL/RECTAL EXAMINATION, SURGICAL PROCEDURE, OR ANY OTHER EXPOSURE?NO LATEX RISK : HAVE YOU EVER HAD ANY DIFFICULTY BREATHING OR HIVES AFTER EATING OR HANDLING ANY FRUITS, OR VEGETABLES; SUCH KIWI, BANANAS, STONE FRUITS, OR CHESTNUTSNO LATEX RISK : DO YOU HAVE A PREVIOUS PERSONAL HISTORY OF MORE THAN NINE SURGERIES, SPINA BIFIDA, OR REPEATED CATHERIZATIONS? NO LATEX RISK : ARE YOU FREQUENTLY EXPOSED TO LATEX PRODUCTS IN YOUR OCCUPATION?NO DATE ASKED : 03/18/2021 ALCOHOL USE: NO. LUNG CANCER SCREENING SMOKING STATUS:FORMER SMOKER IS THE PATIENT BETWEEN THE AGE OF 55 AND 77?NO BMI CARE GOAL FOLLOW-UP ABOVE NORMAL BMI FOLLOW-UPDIETARY MANAGEMENT EDUCATION, GUIDANCE, AND COUNSELING ALCOHOL SCREENING DID YOU HAVE A DRINK CONTAINING ALCOHOL IN THE PAST YEAR?NO POINTS0 INTERPRETATIONNEGATIVE RECREATIONAL DRUG USE DRUG USE?NO CAFFEINE CAFFEINE USE?YES A CUP OF COFFEE A DAY SEXUAL HX HAD SEX IN THE LAST 12 MONTHS (VAGINAL, ORAL, OR ANAL)?YES WITHMEN ONLY USE PROTECTION?NO LMP:08/06/18 HAVE YOU EVER HAD AN STD?NO TAOISM TAOISM BAPTIST LANGUAGE LANGUAGES SPOKEN:[place] EDUCATION LEVEL OF EDUCATION:HIGH SCHOOL LEARNING BARRIERS / SPECIAL NEEDS CHANGE FROM LAST VISIT?NO BARRIERS TO LEARNING?NO HEARING IMPAIRED?NO VISION IMPAIRED?NO COGNITIVELY IMPAIRED?NO READINESS TO LEARN?YES LEARNING PREFERENCES?NO LEARNING CAPABILITIES PRESENT?YES EMOTIONAL BARRIERS?NO SPECIAL DEVICES?NO PEDIATRIC ANESTHESIOLOGIST NEEDED?NO DOMESTIC VIOLENCE STATUS: DO YOU FEEL SAFE IN YOUR ENVIRONMENT?YES 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. DIET: REGULAR. EXERCISE: WALKS. MARITAL STATUS: . IMMUNIZATION PROGRAM DO YOU FEEL SAFE IN YOUR ENVIRONMENT? 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 - PFS REFERRAL NEEDED?NO CLERGY REFERRAL NEEDED?NO PUBLIC HEALTH REFERRAL NEEDED?NO WAS THE PROVIDER NOTIFIED OF ANY PERTINENT INFO? N/A HAS THE PATIENT BEEN EDUCATED REGARDING HIS/HER PLAN OF CARE?YES HAS THE PATIENT BEEN EDUCATED REGARDING PAIN, THE RISK FOR PAIN, THE IMPORTANCE OF EFFECTIVE PAIN MANAGEMENT, AND THE PAIN ASSESSMENT PROCESS?YES ADVANCE DIRECTIVE ADVANCE DIRECTIVE DISCUSSED WITH PATIENT:YES PT HAS NO ADVANCED DIRECTIVES, DECLINES INFORMATION ON HCP AT THIS TIME. REVIEW OF SYSTEMS CONSTITUTIONAL: ANY RECENT FEVER NO . CHILLS NO . WEIGHT CHANGE OF UNKNOWN REASONS NO . GASTROENTEROLOGY: NEW UNEXPLAINABLE CHANGES IN BOWEL CONTROL NO . CONSTIPATION NO . GENITOURINARY: ANY NEW CHANGE IN BLADDER CONTROL? NO . NEUROLOGY: NEW ONSET DIZZINESS OR NEUROLOGICAL CHANGES NOT MENTIONED NO . NEW NUMBNESS OR PAIN PATTERNS NOT MENTIONED AND PERTINENT TO TODAY'S VISIT NO . CARDIOLOGY: NEW CHEST PRESSURE NO . PATIENT DENIES NO . RESPIRATORY: UNEXPLAINABLE COUGH NO . NEW SHORTNESS OF BREATH NO . VITAL SIGNS WT 291 LBS, HT 66 IN, BMI 46.96 INDEX, BP 136/78 MM HG, HR 60 /MIN, RR 18 /MIN, TEMP 96.7 F, OXYGEN SAT % 100%, SAFE IN ENV? (Y/N) YES, NA INITIALS WA 09:44T.ESTRELLITA MARY. EXAMINATION GENERAL EXAMINATION: GENERALNO ACUTE DISTRESS, WELL NOURISHED AND HYDRATED. PSYCHAPPROPRIATE MOOD AND AFFECT . LUNGS:CLEAR TO AUSCULTATION BILATERALLY, NO WHEEZES, RHONCHI, RALES. HEART:NO MURMURS, REGULAR RATE AND RHYTHM. ASSESSMENTS LOW BACK PAIN - M54.5 (PRIMARY) TREATMENT LOW BACK PAIN INCREASE GABAPENTIN CAPSULE, 400 MG, 1 CAPSULE, ORALLY, THREE TIMES DAILY START DAY 6, 90 DAY(S), 270, REFILLS 1 NOTES: 40-YEAR-OLD FEMALE IN FOR CHRONIC PAIN FOLLOW-UP. MRI WAS REVIEWED WITH PATIENT AND PROCEDURES DISCUSSED. PATIENT HAS DECLINED PROCEDURES AT THIS TIME. GIVEN PRESENTING SYMPTOMS RECOMMEND INCREASING GABAPENTIN TO 400 MG 3 TIMES A DAY WITH FOLLOW-UP IN 2 MONTHS. PATIENT HAS EXPRESSED UNDERSTANDING OF AND WAS IN AGREEMENT WITH TREATMENT PLAN. GIVEN TIME TO ASK QUESTIONS AND EXPRESS CONCERNS. PROCEDURE CODES FA211 ESTABILISHED PATIENT [facility] CHARGE DISPOSITION & COMMUNICATION FOLLOW UP 2 MONTHS (REASON: MED INCREASE ) ELECTRONICALLY SIGNED BY MEGAN ARAUZ ON 03/19/2021 AT 08:38 AM EDT DISCLAIMER : THIS IS A VISIT SUMMARY EXTRACTED FROM THE [employer] CHART. IT IS NOT A COPY OF THE [employer] PROGRESS NOTE. REJI
== END ==
LOC: M PAIN 09:30
PROVIDERS: ATTEND Family Medicine
DX: M54.5 Low back pain (principal); G89.29 Other chronic pain; K21.9 Gastro-esophageal reflux disease without esophagitis; E55.9 Vitamin D deficiency, unspecified; F17.210 Nicotine dependence, cigarettes, uncomplicated; Z86.59 Personal history of other mental and behavioral disorders; E66.01 Morbid (severe) obesity due to excess calories; Z68.42 Body mass index [BMI] 45.0-49.9, adult; Z79.891 Long term (current) use of opiate analgesic; Z79.899 Other long term (current) drug therapy

== ENCOUNTER → 2021-05-19 | Outpatient (CLI) | payer OTHER ==
--- NOTE | 2021-05-21 03:57 | ECWPNPC ---
PATIENT NAME: EMILIE GILL : 1980 GENDER: FEMALE VISIT DATE: 05/19/2021 DISCHARGE DATE: 05/19/21 1507 VISIT LOCKED DATE TIME: PHYSICIAN: SHANIA PRUITT PHYSICIAN PAGER NO: ACTIVE RESOURCE: SHANIA PRUITT REASON FOR APPOINTMENT 1. MED INCREASE HISTORY OF PRESENT ILLNESS GENERAL: HPI 40-YEAR-OLD FEMALE IN FOR CHRONIC PAIN FOLLOW-UP. AT LAST CLINIC VISIT PATIENT'S GABAPENTIN WAS INCREASED AND SHE ADMITS THAT THIS HAS BEEN BENEFICIAL. SHE RATES PAIN CURRENTLY AT A 4-10 DESCRIBES IT INTERMITTENT AND SHARP. PATIENT FEELS HER MEDICATIONS ARE HELPFUL AND DENIES MED SIDE EFFECTS AT THIS TIME.. -. FALL RISK SCREENING: SCREENING : NO FALLS REPORTED IN THE LAST YEAR. PAIN SCREENING: PATIENT HAS A COMPLAINT OF ACUTE OR CHRONIC PAIN :YES LOCATION OF PAIN:MID BACK, LOW BACK, LEFT HIP, LEG(S) LEFT LEG INTENSITY OF PAIN (SCALE OF 1 TO 10):4 WHAT DOES YOUR PAIN FEEL LIKE:INTERMITTENT, SHARP DURATION:PERIODIC PAIN IS INCREASED BY:OTHERS NOTHING REALLY MAKES IT WORSE PAIN IS DECREASED BY:USE OF PAIN MEDICATIONS NURSING NOTE: -. PAIN CENTER INTAKE QUESTIONS: DO YOU HAVE A HISTORY OF MRSA? :NO DO YOU TAKE A BLOOD THINNERS? :NO DO YOU HAVE ANY BLEEDING DISORDERS? :NO ANY NEW NUMBNESS OR WEAKNESS IN YOUR LEGS OR ARMS? :NO ANY PACEMAKER,DEFIBRILLATOR, OR DORSAL COLUMN STIMULATOR? :NO DO YOU HAVE ANY RASHES OR OPEN SORES? :NO ARE YOU ALLERGIC TO IV DYE? :NO ARE YOU DIABETIC? :NO ANY NEW PROBLEMS WITH YOUR MEDICATIONS? :NO HAVE YOU RECEIVED A VACCINE IN THE PAST 30 DAYS? :YES IF SO WHAT VACCINE AND WHEN? COVID VACCINE DO YOU PLAN TO RECEIVE A VACCINE IN THE NEXT 21 DAYS? :NO DO YOU NEED ANY PRESCRIPTION? :NO DO YOU TAKE ANY IMMUNOSUPPRESSIVE MEDICATIONS? :NO DO YOU HAVE ANY KIDNEY OR LIVER DISEASE? :NO IS THERE A CHANCE YOU COULD BE ? :NO ARE YOU BREAST FEEDING? :NO CURRENT MEDICATIONS TAKING VITAMIN D 1000 UNIT TABLET 1 TABLET ORALLY ONCE A DAY TAKING MULTIVITAMINS CAPSULE 1 ORALLY DAILY TAKING LORATADINE 10 MG TABLET 1 TABLET ORALLY ONCE A DAY PRN ALLERGIES TAKING DICYCLOMINE HCL 20 MG TABLET 1 TABLET ORALLY THREE TIMES DAILY PRN TAKING TIZANIDINE HCL 4 MG TABLET 1.5 TABLET NEEDED ORALLY BEFORE BEDTIME TAKING PANTOPRAZOLE SODIUM 40 MG TABLET DELAYED RELEASE 1 TABLET ORALLY ONCE A DAY TAKING GABAPENTIN 400 MG CAPSULE 1 CAPSULE ORALLY THREE TIMES DAILY START DAY 6 TAKING FLONASE ALLERGY RELIEF 50 MCG/ACT SUSPENSION USE 1 SPRAY(S) IN EACH NOSTRIL TWICE DAILY FOR 30 DAYS TAKING TRAMADOL HCL 50 MG TABLET 1 TABLET EVERY 6 HOURS PRN MDD=4 ORALLY Q6H PRN MDD4, NOTES: CHRONIC PAIN NOT-TAKING GABAPENTIN 100 MG CAPSULE 1 CAPSULE ORALLY THREE TIMES DAILY X 5 DAYS NOT-TAKING ONDANSETRON 4 MG TABLET DISINTEGRATING DISSOLVE ONE TABLET UNDER THE TONGUE THREE TIMES A DAY NEEDED ORAL NOT-TAKING FAMOTIDINE 20 MG TABLET TAKE 1 TABLET BY MOUTH TWICE DAILY ORAL NOT-TAKING SUCRALFATE 1 GM TABLET TAKE 1 TABLET BY MOUTH THREE TIMES DAILY WITH EACH MEAL AND 1 TABLET BEFORE BED TAKE SEPARATELY FROM OTHER MEDICATIONS BY AT LEAST ONE HOUR ORAL MEDICATION LIST REVIEWED AND RECONCILED WITH THE PATIENT PAST MEDICAL HISTORY ANXIETY - HAS TRIED MULTIPLE MEDS - HAS LEARNED TO MANAGE THIS WITH CBT SEASONAL ALLERGIES CHRONIC LOW BACK PAIN/MRI SHOWED LUMBAR DISC BULGE/HERNIATION - FOLLOWS WITH PAIN CLINIC ON TRAMADOL ESOPHAGEAL REFLUX H/O VITAMIN D DEFICIENCY OBESITY IBS DIARRHEA TYPE CHRONIC CON'T USE OF OPIOIDS ALLERGIES SEASONAL: ITCHY EYES, NASAL DRAINAGE - ALLERGY SOCIAL HISTORY GENERAL: TOBACCO USE ARE YOU A:FORMER SMOKER CURRENTLY HAS NOT SMOKED IN 2 WEEKS HOW LONG HAS IT BEEN SINCE YOU LAST SMOKED?1-3 MONTHS SMOKING CESSATION INFORMATION GIVEN05/01/2020 LATEX QUESTIONNAIRE LATEX ALLERGY : HAVE YOU EVER DEVELOPED ANY TYPE OF REACTION AFTER HANDLING LATEX PRODUCTS SUCH RUBBER GLOVES, CONDOMS, DIAPHRAGMS, BALLOONS, SOCKS, OR UNDERWEAR?NO LATEX ALLERGY : HAVE YOU EVER DEVELOPED ANY TYPE OF REACTION DURING OR AFTER DENTAL APPOINTMENT, VAGINAL/RECTAL EXAMINATION, SURGICAL PROCEDURE, OR ANY OTHER EXPOSURE?NO LATEX RISK : HAVE YOU EVER HAD ANY DIFFICULTY BREATHING OR HIVES AFTER EATING OR HANDLING ANY FRUITS, OR VEGETABLES; SUCH KIWI, BANANAS, STONE FRUITS, OR CHESTNUTSNO LATEX RISK : DO YOU HAVE A PREVIOUS PERSONAL HISTORY OF MORE THAN NINE SURGERIES, SPINA BIFIDA, OR REPEATED CATHERIZATIONS? NO LATEX RISK : ARE YOU FREQUENTLY EXPOSED TO LATEX PRODUCTS IN YOUR OCCUPATION?NO DATE ASKED : 05/19/2021 ALCOHOL USE: NO. LUNG CANCER SCREENING SMOKING STATUS:FORMER SMOKER IS THE PATIENT BETWEEN THE AGE OF 55 AND 77?NO BMI CARE GOAL FOLLOW-UP ABOVE NORMAL BMI FOLLOW-UPDIETARY MANAGEMENT EDUCATION, GUIDANCE, AND COUNSELING ALCOHOL SCREENING DID YOU HAVE A DRINK CONTAINING ALCOHOL IN THE PAST YEAR?NO POINTS0 INTERPRETATIONNEGATIVE RECREATIONAL DRUG USE DRUG USE?NO CAFFEINE CAFFEINE USE?YES A CUP OF COFFEE A DAY SEXUAL HX HAD SEX IN THE LAST 12 MONTHS (VAGINAL, ORAL, OR ANAL)?YES WITHMEN ONLY USE PROTECTION?NO LMP:08/06/18 HAVE YOU EVER HAD AN STD?NO JEW JEW BUDDHISM LANGUAGE LANGUAGES SPOKEN:[place] EDUCATION LEVEL OF EDUCATION:HIGH SCHOOL LEARNING BARRIERS / SPECIAL NEEDS CHANGE FROM LAST VISIT?NO BARRIERS TO LEARNING?NO HEARING IMPAIRED?NO VISION IMPAIRED?NO COGNITIVELY IMPAIRED?NO READINESS TO LEARN?YES LEARNING PREFERENCES?NO LEARNING CAPABILITIES PRESENT?YES EMOTIONAL BARRIERS?NO SPECIAL DEVICES?NO COIN BOX COLLECTOR NEEDED?NO DOMESTIC VIOLENCE STATUS: DO YOU FEEL SAFE IN YOUR ENVIRONMENT?YES 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 DIET: REGULAR. EXERCISE: WALKS. MARITAL STATUS: . IMMUNIZATION PROGRAM DO YOU FEEL SAFE IN YOUR ENVIRONMENT? YES, RETAIL ASST VISE HAND AT [employer], REGULAR, WALKS, , SPOUSE, CHILDREN. - PFS REFERRAL NEEDED?NO CLERGY REFERRAL NEEDED?NO PUBLIC HEALTH REFERRAL NEEDED?NO WAS THE PROVIDER NOTIFIED OF ANY PERTINENT INFO? N/A HAS THE PATIENT BEEN EDUCATED REGARDING HIS/HER PLAN OF CARE?YES HAS THE PATIENT BEEN EDUCATED REGARDING PAIN, THE RISK FOR PAIN, THE IMPORTANCE OF EFFECTIVE PAIN MANAGEMENT, AND THE PAIN ASSESSMENT PROCESS?YES ADVANCE DIRECTIVE ADVANCE DIRECTIVE DISCUSSED WITH PATIENT:YES PT HAS NO ADVANCED DIRECTIVES, DECLINES INFORMATION ON HCP AT THIS TIME. REVIEW OF SYSTEMS CONSTITUTIONAL: ANY RECENT FEVER NO . CHILLS NO . WEIGHT CHANGE OF UNKNOWN REASONS NO . GASTROENTEROLOGY: NEW UNEXPLAINABLE CHANGES IN BOWEL CONTROL NO . CONSTIPATION NO . GENITOURINARY: ANY NEW CHANGE IN BLADDER CONTROL? NO . NEUROLOGY: NEW ONSET DIZZINESS OR NEUROLOGICAL CHANGES NOT MENTIONED NO . NEW NUMBNESS OR PAIN PATTERNS NOT MENTIONED AND PERTINENT TO TODAY'S VISIT NO . CARDIOLOGY: NEW CHEST PRESSURE NO . PATIENT DENIES NO . RESPIRATORY: UNEXPLAINABLE COUGH NO . NEW SHORTNESS OF BREATH NO . VITAL SIGNS WT 292.6 LBS, HT 66 IN, BMI 47.22 INDEX, BP 132/74 MM HG, HR 75 /MIN, RR 18 /MIN, TEMP 97.0 F, OXYGEN SAT % 100%, SAFE IN ENV? (Y/N) YES, NA INITIALS AW 1444, REVIEWED BY: Nicholas MCKEON RN. EXAMINATION GENERAL EXAMINATION: GENERALNO ACUTE DISTRESS, WELL NOURISHED AND HYDRATED. PSYCHAPPROPRIATE MOOD AND AFFECT . LUNGS:CLEAR TO AUSCULTATION BILATERALLY, NO WHEEZES, RHONCHI, RALES. HEART:NO MURMURS, REGULAR RATE AND RHYTHM. ASSESSMENTS CHRONIC LOW BACK PAIN - M54.5 (PRIMARY), RISK: (NULL) CHRONIC USE OF OPIATE DRUG FOR THERAPEUTIC PURPOSE - Z79.891 TREATMENT CHRONIC LOW BACK PAIN NOTES: 40-YEAR-OLD FEMALE IN FOR CHRONIC PAIN FOLLOW-UP. GIVEN PRESENTING SYMPTOMS RECOMMEND CONTINUATION OF CURRENT MEDICATION REGIMEN WITH FOLLOW-UP IN 3 MONTHS. PATIENT HAS EXPRESSED UNDERSTANDING OF AND WAS IN AGREEMENT WITH TREATMENT PLAN. GIVEN TIME FOR QUESTIONS AND EXPRESS CONCERNS. ISTOP REGISTRY REVIEWED AND DEMONSTRATES COMPLLIANCE. (REF #[id number] ) BRINGS IN MEDICATIONS WHICH IS APPROPRIATE FOR WHAT WAS DISPENSED. RECENT URINE TOXICOLOGY REVIEWED. NO UNAUTHORIZED MEDICATIONS. NO ILLICIT SUBSTANCES AND PRESCRIBED MEDICATIONS WERE PRESENT. CHRONIC USE OF OPIATE DRUG FOR THERAPEUTIC PURPOSE LAB: URINE TEST GROUP [facility] 05/19/2021 3:03:12 PM > TRAMADOL 05/19/2021 PROCEDURE CODES FA211 ESTABILISHED PATIENT [facility] CHARGE DISPOSITION & COMMUNICATION FOLLOW UP 3 MONTHS (REASON: LOW BACK PAIN ) ELECTRONICALLY SIGNED BY MEGAN ARAUZ ON 05/20/2021 AT 11:19 AM EDT DISCLAIMER : THIS IS A VISIT SUMMARY EXTRACTED FROM THE [employer] CHART. IT IS NOT A COPY OF THE [employer] PROGRESS NOTE. REJI
== END ==
LOC: M PAIN 14:45
PROVIDERS: ATTEND Family Medicine
DX: M54.5 Low back pain (principal); G89.29 Other chronic pain; K21.9 Gastro-esophageal reflux disease without esophagitis; E55.9 Vitamin D deficiency, unspecified; Z87.891 Personal history of nicotine dependence; E66.01 Morbid (severe) obesity due to excess calories; Z68.42 Body mass index [BMI] 45.0-49.9, adult; Z79.891 Long term (current) use of opiate analgesic; Z79.899 Other long term (current) drug therapy

== ENCOUNTER → 2021-11-12 | Outpatient (CLI) | payer OTHER | LOC: M PAIN 14:00 | PROVIDERS: ATTEND Anesthesiology | DX: M54.50 Low back pain, unspecified (principal); M79.18 Myalgia, other site; F41.9 Anxiety disorder, unspecified; J30.2 Other seasonal allergic rhinitis; K21.9 Gastro-esophageal reflux disease without esophagitis; E66.9 Obesity, unspecified; K58.0 Irritable bowel syndrome with diarrhea; F17.210 Nicotine dependence, cigarettes, uncomplicated; Z79.891 Long term (current) use of opiate analgesic; Z79.899 Other long term (current) drug therapy; Z68.42 Body mass index [BMI] 45.0-49.9, adult ==

== ENCOUNTER → 2021-12-02 | Outpatient (CLI) | payer OTHER ==
--- NOTE | 2021-12-02 14:49 | REP ---
INDICATION: SPRAIN. COMPARISON: None. TECHNIQUE: Four views FINDINGS: The joint spaces are symmetric and relatively well maintained. There is no evidence of acute fracture or destructive osseous lesion. IMPRESSION: No acute osseous abnormality <Electronically signed by Floyd Montana > 12/02/21 [id number]
--- NOTE | 2021-12-02 14:51 | REP ---
INDICATION: SPRAIN. COMPARISON: None. TECHNIQUE: The examination is suboptimal. The radiographic beam was centered 6 cm proximal to the mortise. This causes factitious narrowing. FINDINGS: No acute fracture or destructive osseous lesion. IMPRESSION: No acute abnormalities identified. Exam limitations as described above. Consider repeat. <Electronically signed by Floyd Montana > 12/02/21 [id number]
== END ==
LOC: M ADAMS 14:13
PROVIDERS: ATTEND Physician Assistant
DX: S93.602A Unspecified sprain of left foot, initial encounter (principal); X58.XXXA Exposure to other specified factors, initial encounter; Y92.89 Other specified places as the place of occurrence of the external cause; Y93.9 Activity, unspecified; Y99.9 Unspecified external cause status

== ENCOUNTER → 2022-09-05 | Outpatient (REF) ==
[~2022-09-05] MED LIST changes: +TIZA10TA; -TIZA4TAB4
== END ==
LOC: M LABSMTC 11:10
PROVIDERS: ATTEND Pediatrics
DX: Z20.822 Contact with and (suspected) exposure to COVID-19 (principal)

== ENCOUNTER → 2023-02-11 | Outpatient (CLI) | payer OTHER ==
[2023-02-11 08:47] LABS: HEMOGLOBIN 13.7 g/dl (12.0-15.5); MEAN CORPUSCULAR HEMOGLOBIN 30.4 pg (27.0-33.0); MEAN CORPUSCULAR HGB CONC 32.6 g/dl (32.0-36.5); MEAN CORPUSCULAR VOLUME 93.1 fl (80.0-96.0); PLATELET COUNT, AUTOMATED 247 10^3/uL (150-450); RED BLOOD COUNT 4.51 10^6/uL (4.00-5.40); WHITE BLOOD COUNT 7.9 10^3/uL (4.0-10.0)
[2023-02-11 09:34] LABS: ALBUMIN 3.7 G/DL (3.2-5.2); ALKALINE PHOSPHATASE 84 U/L (46-116); ALT/SGPT 16 U/L (7.0-40); AST/SGOT 12 U/L (<34); BILIRUBIN,TOTAL 0.7 MG/DL (0.3-1.2); BLOOD UREA NITROGEN 16 MG/DL (9-23); CARBON DIOXIDE LEVEL 30 MMOL/L (20-31); CHLORIDE LEVEL 107 MMOL/L (98-107); CREATININE FOR GFR 0.89 MG/DL (0.55-1.30); GLOMERULAR FILTRATION RATE > 60.0 (>58); GLUCOSE, FASTING 92 MG/DL (60-100); SODIUM LEVEL 140 MMOL/L (136-145); TOTAL PROTEIN 6.6 G/DL (5.7-8.2)
== END ==
LOC: M LAB 08:06
PROVIDERS: ATTEND Physician Assistant
DX: M51.26 Other intervertebral disc displacement, lumbar region (principal); F17.210 Nicotine dependence, cigarettes, uncomplicated; F11.90 Opioid use, unspecified, uncomplicated; K21.9 Gastro-esophageal reflux disease without esophagitis

== ENCOUNTER → 2023-02-17 | Outpatient (REF) | payer OTHER ==
[2023-02-17 17:47] LABS: APPEARANCE, URINE CLEAR (CLEAR); BACTERIA, URINE AUTO NEGATIVE (NEGATIVE); BILIRUBIN, URINE AUTO NEGATIVE (NEGATIVE); BLOOD, URINE BLOOD NEGATIVE (NEGATIVE); COLOR, URINE STRAW (YELLOW); GLUCOSE, URINE (UA) AUTO NEGATIVE (NEGATIVE); KETONE, URINE AUTO NEGATIVE (NEGATIVE); LEUKOCYTE ESTERASE, URINE AUTO NEGATIVE (NEGATIVE); MUCUS, URINE SMALL (NEGATIVE); NITRITE, URINE AUTO NEGATIVE (NEGATIVE); PROTEIN, URINE AUTO NEGATIVE (NEGATIVE); RBC, URINE AUTO 0 /HPF (0-3); SPECIFIC GRAVITY URINE AUTO 1.003 (1.002-1.035); SQUAMOUS EPITHELIAL CELL UR AU 1 /HPF (0-6); UROBILINOGEN, URINE AUTO 0.2 mg/dL (0.0-2.0); WBC, URINE AUTO 0 /HPF (0-3)
== END ==
LOC: M LAB REF 16:18
PROVIDERS: ATTEND Physician Assistant Medical
DX: N39.0 Urinary tract infection, site not specified (principal)

== ENCOUNTER → 2023-02-23 | Outpatient (REF) | payer OTHER | LOC: M SFHCADAM 13:01 | PROVIDERS: ATTEND Physician Assistant | DX: Z12.4 Encounter for screening for malignant neoplasm of cervix (principal) ==

== ENCOUNTER → 2023-02-23 | Outpatient (CLI) | payer OTHER | LOC: M WHC 09:21 | PROVIDERS: ATTEND Physician Assistant | DX: Z53.9 Procedure and treatment not carried out, unspecified reason (principal) ==

== ENCOUNTER → 2023-02-24 | Outpatient (CLI) | payer OTHER | LOC: M WHC 11:09 | PROVIDERS: ATTEND Physician Assistant | DX: Z12.31 Encounter for screening mammogram for malignant neoplasm of breast (principal) ==

== ENCOUNTER → 2023-12-30 | Outpatient (CLI) | payer OTHER | LOC: M WHC 15:55 | PROVIDERS: ATTEND Physician Assistant | DX: Z12.31 Encounter for screening mammogram for malignant neoplasm of breast (principal) ==

== ENCOUNTER → 2024-07-18 | Outpatient (REF) | payer OTHER | LOC: M SFHCADAM 15:41 | PROVIDERS: ATTEND Physician Assistant | DX: F11.90 Opioid use, unspecified, uncomplicated (principal) ==

== ENCOUNTER → 2025-01-11 | Outpatient (CLI) | payer OTHER ==
[2025-01-11 16:22] LABS: HEMATOCRIT 39.9 % (36.0-47.0); MEAN CORPUSCULAR HEMOGLOBIN 30.4 pg (27.0-33.0); MEAN CORPUSCULAR HGB CONC 32.6 g/dl (32.0-36.5); MEAN CORPUSCULAR VOLUME 93.4 fl (80.0-96.0); PLATELET COUNT, AUTOMATED 239 10^3/uL (150-450); RED BLOOD COUNT 4.27 10^6/uL (4.00-5.40); WHITE BLOOD COUNT 10.9 10^3/uL (4.0-10.0)
[2025-01-11 16:54] LABS: ALBUMIN 3.7 G/DL (3.2-5.2); ALKALINE PHOSPHATASE 69 U/L (35-104); ALT/SGPT 11 U/L (7.0-40); AST/SGOT < 8 U/L (<34); BILIRUBIN,TOTAL 0.5 MG/DL (0.3-1.2); BLOOD UREA NITROGEN 18 MG/DL (9-23); CARBON DIOXIDE LEVEL 29 MMOL/L (20-31); CHLORIDE LEVEL 102 MMOL/L (98-107); CHOLESTEROL LEVEL 129 MG/DL (<200); CHOLESTEROL RISK RATIO 2.59 (<5); CREATININE FOR GFR 0.79 MG/DL (0.55-1.30); GLOMERULAR FILTRATION RATE > 60.0 (>58); GLUCOSE, FASTING 77 MG/DL (60-100); HDL CHOLESTEROL 49.8 MG/DL (>40); LDL CHOLESTEROL 71.2 MG/DL (<100); NON-HDL-C 79.2 MG/DL; POTASSIUM SERUM 3.9 MMOL/L (3.5-5.1); SODIUM LEVEL 142 MMOL/L (136-145); TOTAL PROTEIN 6.7 G/DL (5.7-8.2); TRIGLYCERIDES LEVEL 40 MG/DL (<150)
[2025-01-11 17:26] LABS: HEMOGLOBIN A1c 5.1 % (4.0-6.0)
== END ==
LOC: M LAB 15:16
PROVIDERS: ATTEND Physician Assistant
DX: M51.9 Unspecified thoracic, thoracolumbar and lumbosacral intervertebral disc disorder (principal); G89.29 Other chronic pain; E66.01 Morbid (severe) obesity due to excess calories; K21.9 Gastro-esophageal reflux disease without esophagitis; K58.0 Irritable bowel syndrome with diarrhea; F11.90 Opioid use, unspecified, uncomplicated; F17.211 Nicotine dependence, cigarettes, in remission; Z13.220 Encounter for screening for lipoid disorders; Z13.1 Encounter for screening for diabetes mellitus

== ENCOUNTER → 2025-07-16 | Outpatient (CLI) | payer OTHER | LOC: M WHC 11:52 | PROVIDERS: ATTEND Physician Assistant | DX: Z53.9 Procedure and treatment not carried out, unspecified reason (principal) ==

== ENCOUNTER → 2025-07-30 | Outpatient (CLI) | payer OTHER | LOC: M WHC 15:04 | PROVIDERS: ATTEND Physician Assistant | DX: Z12.31 Encounter for screening mammogram for malignant neoplasm of breast (principal); R92.323 Mammographic fibroglandular density, bilateral breasts ==